=== PATIENT | female | born 1960 | race Caucasian/White ===

== ENCOUNTER 2018-12-08 11:23 | Inpatient (IN) | payer MEDICARE, SELFPAY ==
[2018-12-07 12:35] VITALS: BMI 39.1
[2018-12-08] VITALS (16 sets, daily range): BP systolic 123–190; BP diastolic 46–74; PULSE 64–84; RESP 12–18; TEMP 36.4–37; O2SAT 94–99; BMI 39.1
[2018-12-08] MEDS: LACTATED RINGERS 1,000 ML 42 ML IV ×2 (13:21→15:56)
--- NOTE | 2018-12-08 13:27 | PM.PREOP ---
Pre-operative Note Interval Note History & Physical reviewed/Exam performed by Physician: Yes Changes to H&P: No
[2018-12-08] MEDS: MIDAZOLAM 2 MG/2 ML VIAL IV (13:41)
[2018-12-08] MEDS: INSULIN REGULAR 100 UNIT/ML 3 ML VIAL 10 UNIT SUBCUT (13:45)
[2018-12-08] MEDS: CLINDAMYCIN 900 MG/50 ML PIGGYBACK 50 MG IV ×2 (14:44→22:26)
[2018-12-08] MEDS: SODIUM CHLORIDE IRRIG SOLUTION 3,000 ML, GENTAMICIN 240 MG IRR (14:50)
[2018-12-08] MEDS: BUPIVACAINE 0.25% W/ EPI VIAL 30 ML INJ (15:00)
--- NOTE | 2018-12-08 15:04 | SUR.OPER ---
Prone on spine table, head in foam head support, padded chest and pelvic supports, gel pad at knees, lower legs supported by pillows; nipples, genitalia and toes free of pressure, arms secured on foam padded arm boards at <90 degrees abduction. Tape over blanket at thigh secured to table.
--- NOTE | 2018-12-08 15:34 | P.OP_ITS ---
Operative Date/Time/Diagnoses Date of procedure: 12/08/18 Time of procedure: 14:24 Pre-op diagnosis: 1. Lumbar abscess 2. Lumbar cellulitis Post-op diagnosis: same Procedure & Clinicians Procedure: 1. Lumbar irrigation and debridement of skin, muscle and fascia 2. Wound culture and primary closure with drain placement Same procedure as scheduled: Yes Indications: Ms. Yu has been having increased back pain, swelling and redness over the last week. She has hx of diabetes and multiple episodes of systemic infection in the last 3 weeks. Her wound was aspirated in clinic and purulent material was found in her lumbar subcutaneous layer. Surgeon: Jodi Lombardo Side Seam Envelope Machine Operator: Melissa Stewart Click Yes if Unassisted: Yes Anesthesia Type: General Operative Notes Closure Type: primary Specimen(s): other Applied: catheter Estimated Blood Loss (mL): 50 Blood products transfused: none Procedure in detail: Patient was seen in the preoperative area. Risks and benefits of the surgery was discussed with the patient. Informed consent was obtained from the patient and placed in the chart. Surgical site was marked. Patient was taken to the operative room. General anesthesia was administered. Prophylactic antibiotic was held until wound culture was taken. Patient was placed into a prone position on the Juan J table. Patient's back was then prepped and draped in the sterile fashion. Time-out was performed at this time. Left sided incision was made over patient's lumbar where her induration and cellulitis is located. Copius amount of purulent material was drained from her lumbar subcutaneous area, total about 80 cc. Her wound was debrided with a galeano and Le[place]ell rongeur by removing unhealthy appearing subcutaous tissue and muscle and fascia. Her deep fascia was found to be intact and no deep infection was identified. After debridement was completed, her wound was irrigated with 3 L of sterile normal saline with gentamicin. After the irrigation was completed hemostasis was performed using the Bovie. And the adjacent soft tissue next to the i ncision was compressed to explore for additional abscess no and no additional abscess was identified. A Hemovac drain was placed in the subcutaneous layer. And the skin and subcutaneous tissue was closed using 2. Nylon in vertical mattress fashion. Sterile dressing was applied. Patient tolerated the procedure well there were no complications. Since there was significant subcutaneous infection the plan is to treat patient's infection with IV antibiotics, following patient's wound culture, and bringing the patient back in 2 days for repeat irrigation and debridement and wound closure. Complications: none Condition: stable Disposition: Acute Care Plan for aftercare: Admit to inpatient hospital for IV antibiotics and plan for repeat I&D on Thursday.
[2018-12-08] MEDS: METOCLOPRAMIDE 10 MG/2 ML INJ IV (15:40)
[2018-12-08] MEDS: fentaNYL 100 MCG/2 ML INJ 50 MCG IV ×2 (15:40→15:56)
--- NOTE | 2018-12-08 16:40 | SUR.PHASEI ---
Pt transferred to room 212 via bed with all belongings. Last vital signs stable. Pain and nausea controlled. Report given to LARON Ewing on acute care prior to transfer. Kaylin at bedside upon pt arrival to 212.
[2018-12-08] MEDS: SODIUM CHLORIDE 0.9% 1,000 ML 100 ML IV (17:10)
[2018-12-08] MEDS: OXYCODONE IR 5 MG TABLET 10 MG PO ×2 (18:47→22:23)
--- NOTE | 2018-12-08 19:44 | PC.NURSE ---
Addendum entered by Aline Jordan R.N. 12/08/18 21:48: Reconciled home insulin regimen doses, made Dr. Huynh aware regarding patients Insulin doses. New order obtain to use mod sliding scale for now. Hold Metformin until one day post surgery 12/10. Patient refused insulin coverage this HS. States will resume in the morning when she is eating more. Original Note: Kina shift note: 1700: Patient admitted to room 212 from PACU s/p I&D lower back. Patient arrived drowsy but easily arousable. No n/V, tolerating PO intake. Cont. on RA, 95%. Luca at bedside providing supportive care. Oriented to room, environment, and plan of care. Call light within reach
[2018-12-08] MEDS: DOCUSATE 100 MG CAPSULE PO (20:41)
[2018-12-08] MEDS: GABAPENTIN 600 MG TABLET PO (20:41)
[2018-12-08] MEDS: ATORVASTATIN 20 MG TABLET PO (20:41)
[2018-12-08] MEDS: LISINOPRIL 20 MG TABLET PO (20:42)
[2018-12-08] MEDS: SENNOSIDES 8.6 MG TABLET 17.2 MG PO (20:43)
[2018-12-08] MEDS: SERTRALINE 50 MG TABLET 150 MG PO (20:43)
[2018-12-08] MEDS: ALBUTEROL/IPRATROPIUM 3 ML AMPUL INH (20:51)
[2018-12-09] MEDS: OXYCODONE IR 5 MG TABLET 10 MG PO ×4 (01:32→22:16)
[2018-12-09] MEDS: HYDROMORPHONE 1 MG INJ 0.5 MG IV (03:53)
[2018-12-09] MEDS: INSULIN ASPART 100 UNIT/ML INSULN PEN 14 UNIT SUBCUT (03:58)
[2018-12-09] MEDS: ONDANSETRON 4 MG/2 ML INJ IV ×3 (04:01→16:26)
[2018-12-09] MEDS: SODIUM CHLORIDE 0.9% 1,000 ML 100 ML IV (04:04)
--- NOTE | 2018-12-09 04:32 | PC.NURSE ---
ASSUMED CARE OF PT AT 2300. PT AWAKE RESTING IN BED. UP TO CHAIR. MEDICATED WITH OXYCODONE PER DEC. BG AT [address] CARUSO NOTIFIED. REC VTO FOR 40 UNITS NOVOLAG WHICH WOULD BE 1/2 OF PT'S HOME DOSAGE ROUTINE. CALLED BACK TO CHANGE ORDER TO 14 UNITS WITH RECHECK OF CBG IN 30 MIN AND GIVE ADDITIONAL 10 UNITS FOR BG GREATER THAN 300. 14 UNITS GIVEN AT 0400, BG 385 AT 0430. PT WILL REC 10 ADDITIONAL UNITS WITH A RECHECK IN 30 MIN.
[2018-12-09 04:38] VITALS: BP 111/48; PULSE 65; RESP 17; TEMP 36.6; O2SAT 96
[2018-12-09] MEDS: INSULIN ASPART 100 UNIT/ML INSULN PEN SUBCUT ×4 (04:54→17:10)
[2018-12-09 06:18] LABS: Hematocrit 32.2 % (36-46); Hemoglobin 10.7 g/dL (12.0-16.0)
[2018-12-09] MEDS: CLINDAMYCIN 900 MG/50 ML PIGGYBACK 50 MG IV ×3 (06:33→23:40)
[2018-12-09 08:15] VITALS: BP 116/54; PULSE 69; RESP 19; TEMP 36.8; O2SAT 94
[2018-12-09] MEDS: DOCUSATE 100 MG CAPSULE PO ×2 (08:59→20:14)
--- NOTE | 2018-12-09 09:01 | PC.NURSE ---
I went into the patients room to answer the call light, patient asked me if she could get back into bed. I moved the side table away from her and went to grab the walker and gait belt. Patient then stated she will not be using the gait belt. I told her that she is a high fall risk and post operation day 1, the gait belt is for safety reasons. She again said that she will not be using the gait belt. I asked her to wait in the chair while I go talk with the nurse. After talking to Jessa-LARON I could tell the patient was a little upset so I asked Elvia-LARON coordinator to go into the room with me. When we got into the room the patient was on the phone with someone from the hospital asking to talk to whoever was in charge. Elvia said that we should let her talk on the phone and come back when she was done. -DOYLE Fitzgerald
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
--- NOTE | 2018-12-09 10:44 | PC.NURSE ---
Patient was sleepy and sitting in her chair this morning, dozing off as she asked for more pain meds reporting pain to her back as 8/10. FLACC scale was zero. She appeared in no apparent distress. After bedside shift report pt was told that pain meds would be coming soon. Before pain meds were retrieved, pt used call light and asked for assistance going into the bathroom. As patient had been determined to be a high falls risk from a reported fall within the last 3 months, Amilcar the FUR REPAIRER was about to assist her to the bathroom with use of gait belt when the patient reportedly became very agitated. She reportedly refused the gait belt. Amilcar asked this nurse about the refusal of the gait belt, this nurse said We should use it with intention to logically convince her for her safety. Pt reportedly became more agitated and called trustee of estate Dr. Lord to voice her complaints further. Pt was assured by this nurse after the patient's telephone conversation that she can choose to refuse the gait belt. Pt was educated to the falls risks but continued to refuse.
--- NOTE | 2018-12-09 11:00 | PT.IIE ---
Current Diagnoses Other complications of procedures, not elsewhere classified, initial encounter (12/08/18) Surgery Performed Operation Date: 12/08/18 14:15 Actual Procedures p Incision and Drainage of left lumbar abscess - Jodi Lombardo MD Operation Date: 12/10/18 14:45 <No data on this case meets the specified criteria> Surgical History (Last Updated 12/07/18 @ 12:45 by Pamela Henry RN) History of 2 sections (Acute) History of arthroscopy of left shoulder (Acute) History of kidney surgery (Acute) Hx of dilation and curettage (Acute) Hx of laminectomy (Acute ~03/2016) Hx of tonsillectomy (Acute) S/P lumbar fusion (Acute ~05/2015) S/P lumbar fusion (Acute ~12/2016) Medical History (Last Updated 12/07/18 @ 12:45 by Pamela Henry RN) Anxiety (Acute) Asthma (Acute) CVA (cerebral vascular accident) (Acute) Chronic pain (Acute) Depression (Acute) Diabetes (Acute) Diverticulosis (Acute) Eczema (Acute) Edema (Acute) Fibromyalgia (Acute) Former smoker (Acute) Frequent UTI (Acute) [place] (hard of hearing) (Acute) HTN (hypertension) (Acute) Heart murmur (Acute) Hyperlipidemia (Acute) Hypothyroid (Acute) Palpitations (Acute) SOB (shortness of breath) (Acute) Sinus drainage (Acute) Sleep apnea (Acute) Physical Therapy Inpatient Evaluation/Re-Eval M1 PT/OT-IP Prior Functional Status Start: 12/09/18 11:59 Freq: NEEDED Status: Active Protocol: Document 12/09/18 11:00 AB (Rec: 12/09/18 12:09 AB [id number]) Medical Review Prior Functional Status Medical History Reviewed Yes Communication able to make needs known Mobility and Gait pt stated that she is mod I with all mobilities and ambulation using SPC Activities of Daily Living and IADL's stated that she occasionally needs assistance putting her socks/shoes on Social History Household Members spouse family Living Arrangements House Number of Floors (Floors) One Floor Number of Stairs To Enter/Railing? 12 steps to enter with bilateral rails Home Environment Walk in Shower Tub/Shower Home Equipment Front Wheel Walker Straight Cane Grab Bars Near Toilet Grab Bars In Shower Additional Social History Comment pt has her step dad/ mom and mother in law at home to assist her. M2 PT-IP Current Condition Start: 12/09/18 11:59 Freq: NEEDED Status: Active Protocol: Document 12/09/18 11:00 AB (Rec: 12/09/18 12:09 AB [id number]) Physical Therapy Current Condition Current Condition Evaluation Date 12/09/18 Treatment Diagnosis lumbar abscess/cellulitis s/p I&D; difficulty in walking Onset Date 12/08/18 Precautions Lumbar Precautions Log Roll No Twisting Limit Bending Lifting Restriction of 10 lbs Gait Belt above Incisional Area M3 PT-IP Subjective Start: 12/09/18 11:59 Freq: NEEDED Status: Active Protocol: Document 12/09/18 11:00 AB (Rec: 12/09/18 12:09 AB [id number]) Subjective Physical Therapy Visit Type Type Initial Evaluation Visit Start Time 11:00 Visit Stop Time 11:55 Total Visit Minutes 55 Number of MACHINE JOINT CUTTER Visits 0 Physical Therapy Visit Comments Patient Comments pt agreeable to do PT Therapy Pain Assessment Pain When Pain Assessed At Rest Location Lower Back Scale Used stated that pain is too much & does not want to talk about it Pain Management Techniques Apply Cold Timing of Activity with Medications M4 PT-IP Mobility and Gait Start: 12/09/18 11:59 Freq: NEEDED Status: Active Protocol: Document 12/09/18 11:00 AB (Rec: 12/09/18 12:09 AB [id number]) PT-Bed Mobility Assessment Supine to Sit Supine to Sit Standby Assistance PT-Transfer Assessment Sit to and From Stand Sit to and from Stand Standby Assistance Equipment Transfer Assistive Device Bed Rail Front Wheeled Walker Orthotic/Prosthetic Devices or Brace: No Transfers Transfer Destination Chair Transfer Technique pt ambulated to the chair using FWW Transfer Ability Level of Assist Standby Assistance Comments Mobility Comments pt refused to use safety belt. pt educated regarding safety and pt stated that she understood but still no belt . Gait Assessment Gait Gait Assistance Required: Standby Assistance Distance (Feet) 225 Able to Maintain Weight Bearing Status Yes During Gait Assistive Devices Assistive Device Gait Belt Front Wheeled Walker Orthotic/Prosthetic Devices or Brace: No Gait Deviations General Gait Pattern Decreased Stride Length Decreased Feet Clearance Factors Limiting Gait Function Factors Limiting Gait Function Decreased Activity Tolerance Decreased Strength Pain Poor Balance Poor Safety Awareness PT-Balance Assessment Sitting Balance and Reactions Static Sitting Balance Ability Good Dynamic Sitting Balance Ability Good Standing Balance and Reactions Static Standing Balance Ability Fair Dynamic Standing Balance Ability Fair Device Used FWW M5 PT-IP Objective Assessments Start: 12/09/18 11:59 Freq: NEEDED Status: Active Protocol: Document 12/09/18 11:00 AB (Rec: 12/09/18 12:09 AB [id number]) Orientation Orientation/Cognition Level of Alertness Alert Orientation Name Age Birthday Month Date Year Day of Week Place Situation Gross Range of Motion Lower Extremity ROM Assessment Within Functional Limits Strength Lower Extremity Strength Assessment Within Functional Limits Coordination Assessment Gross Coordination Gross Coordination WNL Sensation Assessment Sensation Gross Sensation WNL Muscle Tone Muscle Tone WNL Yes M6 PT-IP Treatment Start: 12/09/18 11:59 Freq: NEEDED Status: Active Protocol: Document 12/09/18 11:00 AB (Rec: 12/09/18 12:09 AB [id number]) Physical Therapy Treatment Education Education Provided Precautions Weight Bearing Status Safety M7 PT-IP Assessment and Plan Start: 12/09/18 11:59 Freq: NEEDED Status: Active Protocol: Document 12/09/18 11:00 AB (Rec: 12/09/18 12:09 AB [id number]) PT Summary Assessment and Plan Potential Rehabilitation Potential Good Status of Condition at Evaluation Stable Summary Impairments Pain ROM Strength Balance Coordination Cognition Bed Mobility Transfers Gait Activity Tolerance Assessment Summary pt requiring SBA with mobility . pt will have her family at home to assist her. stair climbing will be conducted prior to d/c and if able to complete safely, pt may go home when medically stable. Goals Bed Mobility Goal Independent Transfer Goal Independent Cane Front Wheeled Walker Gait Goal Independent Cane Front Wheel Walker Gait Distance 300 Other Goals up/down 12 steps with bilateral rails SBA Days to Meet Goals 5 Frequency of Treatment Frequency Of Treatment Once a Day Treatment Plan Physical Therapy Treatment Plan Bed Mobility Training Transfer Training Gait Training Therapeutic Exercise Balance Retraining Post Op Education Discharge Planning Hot or Cold Pack Neuromuscular Re-ed Coordination Retraining Manual Therapy Other Recommendations and Next Treatment ambulation using SPC, stair Focus climbing Recommendations To Nursing Amount of Assist Needed Standby Assistance Discharge Recommendations PT Discharge Recommendations Home with Assistance
[2018-12-09 12:10] VITALS: BP 135/55; PULSE 71; RESP 18; TEMP 36.8; O2SAT 93
--- NOTE | 2018-12-09 12:20 | PC.NURSE ---
Capone removal: Patient states she does not want her capone to be removed until later today. Pt was educated on increased risk for infection and still declined removal.
--- NOTE | 2018-12-09 14:32 | OT.IP.TRT ---
Current Diagnoses Other complications of procedures, not elsewhere classified, initial encounter (12/08/18) Surgery Performed Operation Date: 12/08/18 14:15 Actual Procedures p Incision and Drainage of left lumbar abscess - Jodi Lombardo MD Operation Date: 12/10/18 14:45 <No data on this case meets the specified criteria> Occupational Therapy Treatment Note M3 OT- IP Subjective and Pain Start: 12/09/18 14:31 Freq: Status: Active Protocol: Document 12/09/18 14:31 ADELA (Rec: 12/09/18 14:32 ADELA [id number]) OT- Subjective Occupational Therapy Visit Type Type Administrative Note Notes OT referral received. Will initiate eval in AM.
[2018-12-09 16:46] VITALS: BP 127/60; PULSE 64; RESP 17; TEMP 37.2; O2SAT 96
--- NOTE | 2018-12-09 17:49 | P.CONS_ITS ---
History of Present Illness Date Patient Seen: 12/09/18 Chief complaint: [id number] I&D SPINE; EXPLORATION SPINAL FUSION Narrative: Kindly asked by Darío Alfonso for a internal medicine consultation for miss Hailey hernandez is a 58-year-old female admitted to the hospital for a lumbar abscess status post I&D. The patient has a history of type 2 diabetes and requires high-dose insulin. She typically takes 100 units of Lantus twice daily with 40-60 units of Humalog with meals. She is also taking metformin for her blood sugars. She reports she is not getting the usual insulin she would give herself at home and has had resulting increasing glucose here in the hospital. The patient is status post I&D. She does report pain in the surgical area. She is nauseated. Otherwise complete has no further complaints she denies any chest pain or shortness of breath. She has mild headache. She has lower extremity edema. She has not vomited. She has had no diarrhea. I am asked to assist with diabetic management. [facility] Medical History Anxiety (Acute) Asthma (Acute) CVA (cerebral vascular accident) (Acute) Chronic pain (Acute) Depression (Acute) Diabetes (Acute) Diverticulosis (Acute) Eczema (Acute) Edema (Acute) Fibromyalgia (Acute) Former smoker (Acute) Frequent UTI (Acute) [place] (hard of hearing) (Acute) HTN (hypertension) (Acute) Heart murmur (Acute) Hyperlipidemia (Acute) Hypothyroid (Acute) Palpitations (Acute) SOB (shortness of breath) (Acute) Sinus drainage (Acute) Sleep apnea (Acute) Surgical History History of 2 sections (Acute) History of arthroscopy of left shoulder (Acute) History of kidney surgery (Acute) Hx of dilation and curettage (Acute) Hx of laminectomy (Acute ~03/2016) Hx of tonsillectomy (Acute) S/P lumbar fusion (Acute ~05/2015) S/P lumbar fusion (Acute ~12/2016) Social History household members: spouse and family Smoking Status: Former smoker alcohol intake: current Social History household members: spouse and family Smoking Status: Former smoker alcohol intake: current Meds Home Medications Medication Instructions Recorded Confirmed Type Lantus U-100 Insulin 100 u SQ BID #0 08/06/12 12/08/18 History lisinopril 20 mg PO QDAY #0 10/09/16 12/08/18 History metformin [Glucophage] 1 tab PO BID #0 12/17/16 12/08/18 History aspirin 81 mg PO DAILY 12/07/18 12/08/18 History atorvastatin 20 mg PO DAILY PRN 12/07/18 12/08/18 History cetirizine 10 mg PO DAILY 12/07/18 12/07/18 History gabapentin [Neurontin] 600 mg PO TID 12/07/18 12/08/18 History hydroxyzine HCl 25 mg PO TID 12/07/18 12/07/18 History insulin lispro [Humalog U-100 40 - 80 unit SUBCUT TID 12/07/18 12/08/18 History Insulin] oxycodone 5 mg PO Q4-6H PRN 12/07/18 12/08/18 History sertraline [Zoloft] 150 mg PO QDAY 12/07/18 12/08/18 History Excedrin Extra Strength 0.5 tab PO TID 12/08/18 12/08/18 History albuterol sulfate 1 neb INHALATION Q4H PRN 12/08/18 12/08/18 History ipratropium bromide 1 neb INHALATION Q4H PRN 12/08/18 12/08/18 History triamterene-hydrochlorothiazid 0.5 tab PO QDAY 12/08/18 12/08/18 History Allergies Allergy/AdvReac Type Severity Reaction Status Date / Time Sulfa (Sulfonamide Allergy Severe SWELLING, Verified 12/08/18 13:09 Antibiotics) NAUSEA cephalexin AdvReac Severe VOMITING Verified 12/08/18 13:09 codeine AdvReac Severe NAUSEA/VOMI Verified 12/08/18 13:09 TING lactase AdvReac Gastrointestinal Verified 12/08/18 13:09 Upset Review of Systems Review of Systems All systems reviewed & are unremarkable except as noted in HPI and below Exam Vital Signs (past 8 hours): - 12/09/18 12:10 12/09/18 16:46 Temperature 98.3 F 98.9 F Pulse Rate 71 64 Respiratory Rate 18 17 Blood Pressure 135/55 L 127/60 Pulse Oximetry 93 96 Oxygen Delivery Method Room Air Oxygen Flow Rate 0 Narrative Exam Narrative: Pleasant obese female who appears uncomfortable and is nauseated HEENT: Normocephalic atraumatic, oropharynx is clear, neck is supple Lungs: Clear to auscultation Cardiac exam: Regular rate and rhythm normal S1-S2 with a 2/6 systolic ejection murmur Abdomen: To obese mildly distended, nontender, no appreciable hepatosplenomegaly Back: Lumbar surgical dressing in place without exudate. Drain in place. Extremities: 2+ pitting edema bilateral Neuro exam: She is awake alert and oriented, she answers questions appropriately, she is able to move her upper extremities 5/5. She reports pain and is unable to move the lower extremities more than 1+ out of 5 bilateral her sensation is grossly intact Psych exam: She is awake alert and oriented, she has no hallucinations, Objective Labs Result Diagrams: 12/09/18 05:48 Labs: Laboratory Results - last 24 hr 12/09/18 05:48 Hgb 10.7 L Hct 32.2 L Assessment & Plan Assessment & Plan narrative: 58-year-old female with multiple medical problems who is status post I&D of a lumbar abscess who I am asked to assist with diabetic management. Patient the patient has a long history of diabetes and is on a significant dose of insulin. I have discussed management of her diabetes her in the hospital. Will start with half her usual dose and adjust accordingly. 2. Obesity number 3. Hyperlipidemia 4. Hypertension 5. Depression Plan at this time will resume insulin at 50 units of Lantus at night in addition to 20 units of Humalog with meals. Would increase her Lantus to 50 twice daily starting tomorrow and resume her usual home insulin at discharge. Agree with continuing her usual home medications. Will hold her metformin here in the hospital. Thank you very much for this consultation will continue to follow with you.
--- NOTE | 2018-12-09 19:50 | PC.NURSE ---
Addendum entered by Karla Devlin R.N. 12/09/18 22:33: Pt continues w/many requests. Refusing insulin at HS CBG = 341 HV patent 10cc Pt states that she is going out for a smoke. Policy explained to her. HL intact, Call light w/in reach. Refuses bed alarm Continue w/plan of care. Original Note: Pt sitting in chair. New IV site established at 1400. Lungs clear, SpO2 96% RA Back dsg CDI, Hemavac intact/patent. Pt appears irritated that routine lantus not yet ordered. in and ordered. RN went to give Lantus and novolog and pt stated I already took my insulin, my brought it in when asked how much pt stated 100u lantus and 20u novolog. Pt ask to not take her own meds while at hospital so she is not double dosed. Pt agreed at this time. Call light w/in reach.
[2018-12-09] MEDS: ATORVASTATIN 20 MG TABLET PO (20:14)
[2018-12-09] MEDS: GABAPENTIN 600 MG TABLET PO (20:14)
[2018-12-09] MEDS: SERTRALINE 50 MG TABLET 150 MG PO (20:14)
[2018-12-09] MEDS: SENNOSIDES 8.6 MG TABLET 17.2 MG PO (20:14)
[2018-12-09 20:15] VITALS: BP 138/50; PULSE 69
[2018-12-09] MEDS: LISINOPRIL 20 MG TABLET PO (20:15)
[2018-12-09 20:17] VITALS: BP 138/50; PULSE 69; RESP 18; TEMP 36.8; O2SAT 97
[2018-12-10] VITALS (17 sets, daily range): BP systolic 101–193; BP diastolic 29–79; PULSE 58–87; RESP 11–24; TEMP 36.3–36.9; O2SAT 90–99; BMI 39.1
[2018-12-10] MEDS: OXYCODONE IR 5 MG TABLET 10 MG PO ×4 (03:56→19:58)
[2018-12-10] MEDS: CLINDAMYCIN 900 MG/50 ML PIGGYBACK 50 MG IV ×3 (06:27→22:34)
--- NOTE | 2018-12-10 07:32 | PC.NURSE ---
Hemovac patent, 40 ml drainage, sanguinous
[2018-12-10] MEDS: DOCUSATE 100 MG CAPSULE PO (08:28)
[2018-12-10] MEDS: INSULIN ASPART 100 UNIT/ML INSULN PEN 20 UNIT SUBCUT ×2 (08:28→12:23)
[2018-12-10] MEDS: diazePAM 2 MG TABLET PO ×2 (08:59→12:15)
--- NOTE | 2018-12-10 10:31 | OT.IP.TRT ---
Current Diagnoses Other complications of procedures, not elsewhere classified, initial encounter (12/08/18) Surgery Performed Operation Date: 12/08/18 14:15 Actual Procedures p Incision and Drainage of left lumbar abscess - Jodi Lombardo MD Operation Date: 12/10/18 14:45 <No data on this case meets the specified criteria> Occupational Therapy Treatment Note M3 OT- IP Subjective and Pain Start: 12/09/18 14:31 Freq: Status: Active Protocol: Document 12/10/18 10:30 [facility] (Rec: 12/10/18 10:31 [facility] [id number]) OT- Subjective Occupational Therapy Visit Type Type Patient Refusal Notes Pt to have 2nd back wash out for sx today and states does not want OT eval as has plenty of assist at home and has had back surgery before and aware of what to do. Therefore discharge OT eval orders.
[2018-12-10] MEDS: ALBUTEROL/IPRATROPIUM 3 ML AMPUL INH (10:48)
--- NOTE | 2018-12-10 10:51 | PT.IPTN ---
Current Diagnoses Other complications of procedures, not elsewhere classified, initial encounter (12/08/18) Surgery Performed Operation Date: 12/08/18 14:15 Actual Procedures p Incision and Drainage of left lumbar abscess - Jodi Lombardo MD Operation Date: 12/10/18 14:45 <No data on this case meets the specified criteria> Physical Therapy Treatment Note M2 PT-IP Current Condition Start: 12/09/18 11:59 Freq: NEEDED Status: Active Protocol: Document 12/09/18 11:00 AB (Rec: 12/09/18 12:09 AB [id number]) Physical Therapy Current Condition Current Condition Evaluation Date 12/09/18 Treatment Diagnosis lumbar abscess/cellulitis s/p I&D; difficulty in walking Onset Date 12/08/18 Precautions Lumbar Precautions Log Roll No Twisting Limit Bending Lifting Restriction of 10 lbs Gait Belt above Incisional Area M3 PT-IP Subjective Start: 12/09/18 11:59 Freq: NEEDED Status: Active Protocol: Document 12/10/18 10:50 SA (Rec: 12/10/18 10:51 SA [id number]) Subjective Physical Therapy Visit Type Type Patient Refusal Notes Pt declined PT this AM stating she has already been up today and that she is having a procedure later and then going home. M4 PT-IP Mobility and Gait Start: 12/09/18 11:59 Freq: NEEDED Status: Active Protocol: Document 12/09/18 11:00 AB (Rec: 12/09/18 12:09 AB [id number]) PT-Bed Mobility Assessment Supine to Sit Supine to Sit Standby Assistance PT-Transfer Assessment Sit to and From Stand Sit to and from Stand Standby Assistance Equipment Transfer Assistive Device Bed Rail Front Wheeled Walker Orthotic/Prosthetic Devices or Brace: No Transfers Transfer Destination Chair Transfer Technique pt ambulated to the chair using FWW Transfer Ability Level of Assist Standby Assistance Comments Mobility Comments pt refused to use safety belt. pt educated regarding safety and pt stated that she understood but still no belt . Gait Assessment Gait Gait Assistance Required: Standby Assistance Distance (Feet) 225 Able to Maintain Weight Bearing Status Yes During Gait Assistive Devices Assistive Device Gait Belt Front Wheeled Walker Orthotic/Prosthetic Devices or Brace: No Gait Deviations General Gait Pattern Decreased Stride Length Decreased Feet Clearance Factors Limiting Gait Function Factors Limiting Gait Function Decreased Activity Tolerance Decreased Strength Pain Poor Balance Poor Safety Awareness PT-Balance Assessment Sitting Balance and Reactions Static Sitting Balance Ability Good Dynamic Sitting Balance Ability Good Standing Balance and Reactions Static Standing Balance Ability Fair Dynamic Standing Balance Ability Fair Device Used FWW M5 PT-IP Objective Assessments Start: 12/09/18 11:59 Freq: NEEDED Status: Active Protocol: Document 12/09/18 11:00 AB (Rec: 12/09/18 12:09 AB [id number]) Orientation Orientation/Cognition Level of Alertness Alert Orientation Name Age Birthday Month Date Year Day of Week Place Situation Gross Range of Motion Lower Extremity ROM Assessment Within Functional Limits Strength Lower Extremity Strength Assessment Within Functional Limits Coordination Assessment Gross Coordination Gross Coordination WNL Sensation Assessment Sensation Gross Sensation WNL Muscle Tone Muscle Tone WNL Yes M6 PT-IP Treatment Start: 12/09/18 11:59 Freq: NEEDED Status: Active Protocol: Document 12/09/18 11:00 AB (Rec: 12/09/18 12:09 AB [id number]) Physical Therapy Treatment Education Education Provided Precautions Weight Bearing Status Safety M7 PT-IP Assessment and Plan Start: 12/09/18 11:59 Freq: NEEDED Status: Active Protocol: Document 12/09/18 11:00 AB (Rec: 12/09/18 12:09 AB [id number]) PT Summary Assessment and Plan Potential Rehabilitation Potential Good Status of Condition at Evaluation Stable Summary Impairments Pain ROM Strength Balance Coordination Cognition Bed Mobility Transfers Gait Activity Tolerance Assessment Summary pt requiring SBA with mobility . pt will have her family at home to assist her. stair climbing will be conducted prior to d/c and if able to complete safely, pt may go home when medically stable. Goals Bed Mobility Goal Independent Transfer Goal Independent Cane Front Wheeled Walker Gait Goal Independent Cane Front Wheel Walker Gait Distance 300 Other Goals up/down 12 steps with bilateral rails SBA Days to Meet Goals 5 Frequency of Treatment Frequency Of Treatment Once a Day Treatment Plan Physical Therapy Treatment Plan Bed Mobility Training Transfer Training Gait Training Therapeutic Exercise Balance Retraining Post Op Education Discharge Planning Hot or Cold Pack Neuromuscular Re-ed Coordination Retraining Manual Therapy Other Recommendations and Next Treatment ambulation using SPC, stair Focus climbing Recommendations To Nursing Amount of Assist Needed Standby Assistance Discharge Recommendations PT Discharge Recommendations Home with Assistance
--- NOTE | 2018-12-10 11:02 | PM.PNPO.1 ---
Subjective Date Patient Seen: 12/10/18 Time Patient Seen: 11:02 Interval history: Hospital day 3, postop day 2 following lumbar wound I and D for infection. Patient has remained stable. She is scheduled to have repeat lumbar wound I and D later today by Dr. Lombardo. Patient is NPO at this time. She was seen by Dr. Kaplan, hospitalist, yesterday to evaluate her diabetes. Did have insulin adjusted. She is on clindamycin IV. Has been getting oxycodone 10 mg for pain. Wound aerobe a culture preliminary is no growth. Anaerobic culture pending. Exam Vital Signs (past 8 hours): - 12/10/18 04:00 12/10/18 07:45 12/10/18 10:49 Temperature 97.8 F 97.7 F Pulse Rate 65 58 L 63 Respiratory Rate 18 18 12 Blood Pressure 129/57 L 128/79 Pulse Oximetry 97 97 98 Oxygen Delivery Method Room Air Oxygen Flow Rate 0 Narrative Exam Narrative: Patient is sitting up in chair but appears lethargic with some slurred speech but responding appropriately. Legs. No calf pain or swelling. Pulses symmetrical. Objective Labs Result Diagrams: 12/09/18 05:48 Assessment & Plan Post-op Postoperative Procedures Operation Date: 12/08/18 14:15 Actual Procedures Side Surgeon p Incision and Drainage of left lumbar abscess Jodi Lombardo MD Patient scheduled for repeat lumbar wound I and D today with Dr. Lombardo. Continue being followed by hospitalist for medical issue. Awaiting final on culture results. Patient will most likely be discharged home when she is cleared after surgery and by hospitalist and pending culture results. Operation Date: 12/10/18 14:45 <No data on this case meets the specified criteria>
[2018-12-10] MEDS: ONDANSETRON 4 MG/2 ML INJ IV ×2 (12:12→16:07)
--- NOTE | 2018-12-10 13:20 | PM.PN.1 ---
Subjective Date Patient Seen: 12/10/18 Interval history: She is seen today to follow up the diabetes mellitus and the related lumbar spine abscesses. Her original incision and drainage was done a couple of days ago and a repeat procedure is being done today. Exam Vital Signs (past 8 hours): - 12/10/18 07:45 12/10/18 10:49 12/10/18 12:03 Temperature 97.7 F 98.1 F Pulse Rate 58 L 63 67 Respiratory Rate 18 12 20 Blood Pressure 128/79 130/48 L Pulse Oximetry 97 98 97 Oxygen Delivery Method Room Air Oxygen Flow Rate 0 Narrative Exam Narrative: She is alert but confused and sedated. No apparent distress. Heart is regular rate and rhythm without murmur. Lungs are clear to auscultation bilaterally. Extremities have no ankle edema. She has a large dressing over the lumbar spine, pending surgery again today. Objective Labs Result Diagrams: 12/09/18 05:48 Assessment & Plan Assessment & Plan narrative: 58-year-old female with multiple medical problems who is status post I&D of a lumbar abscess 1. Diabetes Mellitus. Currently on half her usual dose of insulin, with correctional scale based on the fact that she is having surgery on some days and not on other days. Lispro, Lantus. Resume home doses once oral intake stabilizes. Holding Metformin. 2. Obesity 3. Hyperlipidemia 4. Hypertension - continue lisinopril and Maxzide 5. Depression - continue sertraline Continue insulin at 50 units of Lantus at night in addition to 20 units of Humalog with meals. Would increase her Lantus to 50 twice daily starting with regular diet resumption and resume her usual home insulin at discharge. Agree with continuing her usual home medications. Will hold her metformin here in the hospital. Thank you very much for this consultation will continue to follow with you.
--- NOTE | 2018-12-10 14:48 | PC.NURSE ---
Day shift: Pt off unit at this time for I&D. HAs been NPO except for ice, meds and water.
--- NOTE | 2018-12-10 14:54 | PC.NURSE ---
Day shift: Report given to FILM EDITOR SUPERVISOR.
[2018-12-10] MEDS: LACTATED RINGERS 1,000 ML 42 ML IV (15:30)
--- NOTE | 2018-12-10 15:47 | PM.PREOP ---
Pre-operative Note Interval Note History & Physical reviewed/Exam performed by Physician: Yes Changes to H&P: No
[2018-12-10] MEDS: INSULIN ASPART 100 UNIT/ML 10ML VIAL 30 UNIT SUBCUT (16:14)
[2018-12-10] MEDS: BUPIVACAINE 0.25% W/ EPI VIAL 30 ML INJ (17:02)
[2018-12-10] MEDS: SODIUM CHLORIDE IRRIG SOLUTION 3,000 ML, GENTAMICIN 240 MG IRR (17:02)
--- NOTE | 2018-12-10 17:14 | P.OP_ITS ---
Operative Date/Time/Diagnoses Date of procedure: 12/10/18 Time of procedure: 16:14 Pre-op diagnosis: 1. Lumbar abscess Post-op diagnosis: same Procedure & Clinicians Procedure: Lumbar irrigation debridement of skin, muscle and fascia Same procedure as scheduled: Yes Indications: Ms. Yu is 2 days status post hematogenous sourced lumbar a bscess I&D. She had extensive subcutanous abcess and pus collection. She was scheduled at the end of the last I&D to return today for repeat I&D and wound closure. Surgeon: Jodi Lombardo Detective Automobile Section: Melissa Stewart Click Yes if Unassisted: No Anesthesia Type: General Operative Notes Closure Type: primary Specimen(s): none sent Estimated Blood Loss (mL): 25 Blood products transfused: none Procedure in detail: Patient was seen in the preoperative area. Risks and benefits of the surgery was discussed with the patient. Informed consent was obtained from the patient and placed in the chart. Surgical site was marked. Patient was taken to the operative room. General anesthesia was administered. Prophylactic antibiotic was given to the patient less than 30 min before the incision was made. Patient was placed into a prone position on the Juan J table. Patient's back was then prepped and draped in the sterile fashion. Time- out was performed at this time. Previously placed sutures were removed using scissors after patient was prepped. The Hemovac drain was removed prior to patient was prepped. The wound was explored there is no longer any pus collection inside the wound there is a caudally located small hematoma subcutaneously which is consistent with postop hematoma. The tissue was healthy appearing with a small amount of granulation tissue on bilateral sides of the incision. A Su was used to debride the skin and the subcutaneous tissue muscle and the fascia by removing and healthy tissue out of the wound to minimize possible future infection. After the debridement was completed patient's wound was irrigated copiously with 3 L of sterile normal saline with gentamicin. The wound was then closed using #2 Nylon in vertical mattress fashion as well as lilian. A sterile dressing was applied the patient's incision. Patient was woken up from anesthesia without any issues. Patient was transferred to recovery room in stable condition. Patient will be discharged to home on oral antibiotics and instructed to follow up in 2 weeks for wound check and suture removal at that time. Complications: none Condition: stable Disposition: PACU Plan for aftercare: DIscharge to home
[2018-12-10] MEDS: METOCLOPRAMIDE 10 MG/2 ML INJ IV (17:45)
--- NOTE | 2018-12-10 18:04 | SUR.PHASEI ---
stable pacu stay, vss, no pain, nausea resolved with reglan. o2 weaned off.report called and report called to [facility].
[2018-12-10] MEDS: SODIUM CHLORIDE 0.9% 1,000 ML 100 ML IV (19:42)
[2018-12-10] MEDS: SERTRALINE 50 MG TABLET 150 MG PO (19:44)
[2018-12-10] MEDS: INSULIN GLARGINE 100 UNIT/ML 3ML PEN SUBCUT (20:28)
[2018-12-10] MEDS: INSULIN ASPART 100 UNIT/ML INSULN PEN SUBCUT (20:33)
[2018-12-10] MEDS: hydrOXYzine pamoate 25 MG CAPSULE PO (20:42)
[2018-12-10] MEDS: METFORMIN HCL 500 MG TABLET PO (20:42)
[2018-12-10] MEDS: ACETAMINOPHEN 325 MG TABLET 650 MG PO (22:39)
[2018-12-11] MEDS: BENZOCAINE/MENTHOL 1 LOZ PKT 1 EACH PO (00:02)
[2018-12-11] MEDS: OXYCODONE IR 5 MG TABLET 10 MG PO ×4 (00:09→11:58)
[2018-12-11] MEDS: hydrOXYzine pamoate 25 MG CAPSULE PO ×2 (03:40→08:23)
--- NOTE | 2018-12-11 04:43 | PC.NURSE ---
NOC Shift: Pt POD #1 for IND of lumbar incision for infection by Dr. Lombardo. Pt was supposed to go home post op. Unsure as to why pt re-admitted to ACU. Pt is AAOx3, VSS taking po well w/o difficulty will D/C IVF's when IV bag is complete per AM order. Lower midline lumbar dressing CDI. No neurological deficits noted, pt able to get OOB to bedside commode w/standby assist. Taking po pain medication for 7/10 pain re: to incisional pain. Pt has active order for telemetry monitoring however, patient refused to wear monitor stating it makes her chlaustrophobic, and gives her skin blisters. Dr. Tomas notified on eves shift, no order received to D/C telemetry. Throughout shift RN discussed w/ pt. telemetry yet pt continues to refuse the monitoring despite the risks and will discuss w/Dr. Lombardo in the AM. Pt also refuses to take prescribed Insulin doses when to be given, and will dictate what she will take states she doesn't like taking lantus. Pt. possibly will discharge to home tomorrow.
[2018-12-11 04:53] VITALS: BP 124/48; PULSE 68; RESP 18; TEMP 36.2; O2SAT 97
[2018-12-11 06:08] LABS: Hematocrit 33.2 % (36-46); Hemoglobin 10.7 g/dL (12.0-16.0)
[2018-12-11 07:08] VITALS: BP 135/50; PULSE 68; RESP 18; TEMP 36.7; O2SAT 97
[2018-12-11] MEDS: CLINDAMYCIN 900 MG/50 ML PIGGYBACK 50 MG IV (07:50)
[2018-12-11] MEDS: SODIUM CHLORIDE 0.9% 1,000 ML 100 ML IV (08:05)
[2018-12-11] MEDS: ONDANSETRON 4 MG/2 ML INJ IV (08:06)
[2018-12-11] MEDS: INSULIN ASPART 100 UNIT/ML INSULN PEN SUBCUT ×2 (08:16→11:51)
[2018-12-11] MEDS: INSULIN GLARGINE 100 UNIT/ML 3ML PEN SUBCUT (08:17)
--- NOTE | 2018-12-11 08:20 | PM.DS.1 ---
History of Present Illness Date Patient Seen: 12/11/18 Time Patient Seen: 08:20 Chief complaint: [id number] I&D SPINE; EXPLORATION SPINAL FUSION Narrative: The history and physical exam are contained in the chart in a previously completed note. Please refer to that note for this information. Discharge Providers Date of admission: 12/08/18 11:23 Consults: 12/07/18 13:14 Consult to Respiratory Therapy Evaluate & Treat Comment: SHAGUFTA-does not tolerate CPAP mask Physician Instructions: Evaluate and treat 12/08/18 12:56 Consult to Respiratory Therapy Evaluate & Treat Comment: Physician Instructions: Evaluate and treat 12/08/18 13:04 Consult to Respiratory Therapy Evaluate & Treat Comment: Physician Instructions: Evaluate and treat 12/08/18 16:53 Consult to Occupational Therapy Evaluate & Treat Comment: Physician Instructions: Evaluate and treat Consult to Physical Therapy Evaluate & Treat Comment: Physician Instructions: Evaluate and Treat 12/09/18 10:00 Consult to Physician Routine Comment: Consulting Provider: Hailey Kaplan Reason for consultation: Evaluate diabetic control and medical issues. Status post lumbar wound I D Has provider been notified: Yes 12/10/18 18:44 Consult to Occupational Therapy Evaluate & Treat Comment: Physician Instructions: Evaluate and treat Consult to Physical Therapy Evaluate & Treat Comment: Physician Instructions: Evaluate and Treat Discharge provider: Jnony Tomas MD Discharge Date: 12/11/18 Summary Discharge Diagnosis: 1. Postoperative lumbar abscess. Hospital Course: The patient was admitted to the hospital and underwent a staged 2 part incision and drainage followed by repeat debridement and closure 2 days later. She tolerated the procedures well. She is to be discharged home on oral antibiotics. Status at Discharge Cognitive/behavioral status at discharge: Baseline Functional status at discharge: independent ambulation Overall status at discharge: patient is progressing back to baseline Time Spent with Patient Less than 30 minutes Exam Vital Signs (past 8 hours): - 12/11/18 04:53 12/11/18 07:08 Temperature 97.2 F L 98.0 F Pulse Rate 68 68 Respiratory Rate 18 18 Blood Pressure 124/48 L 135/50 L Pulse Oximetry 97 97 Oxygen Delivery Method Room Air Oxygen Flow Rate 0 Narrative Exam Narrative: Spinal wound is dressed, clean dry and intact. Light touch and motion are intact in both lower extremities. Objective Labs Result Diagrams: 12/11/18 05:35 Labs: Laboratory Results - last 24 hr 12/11/18 05:35 Hgb 10.7 L Hct 33.2 L Discharge Plan Discharge Plan Patient Disposition: Home Discharge Med Rec/Prescriptions Prescriptions: New clindamycin HCl 300 mg capsule 300 mg PO QID Qty: 28 RF: 0 oxycodone 5 mg tablet 5 mg PO Q4-6H PRN (Reason: pain) Qty: 60 RF: 0 Continued Lantus U-100 Insulin 100 UNIT/1 ML solution 100 u SQ BID Qty: 0 RF: 0 lisinopril 20 MG tablet 20 mg PO QDAY Qty: 0 RF: 0 metformin [Glucophage] 500 MG tablet 1 tab PO BID Qty: 0 RF: 0 atorvastatin 20 mg Tablet 20 mg PO DAILY PRN (Reason: Allergic Symptoms) RF: 0 aspirin 81 mg Tablet,Delayed Release (Dr/Ec) 81 mg PO DAILY RF: 0 oxycodone 5 mg Capsule 5 mg PO Q4-6H PRN (Reason: Pain) RF: 0 hydroxyzine HCl 25 mg Tablet 25 mg PO TID RF: 0 Humalog U-100 Insulin 100 unit/mL Cartridge 40 - 80 unit SUBCUT TID RF: 0 cetirizine 10 mg Capsule 10 mg PO DAILY RF: 0 sertraline [Zoloft] 100 MG tablet 150 mg PO QDAY RF: 0 gabapentin [Neurontin] 300 MG capsule 600 mg PO TID RF: 0 Excedrin Extra Strength 0.5 tab PO TID RF: 0 albuterol sulfate 1 neb Inhalation Q4H PRN (Reason: Dyspnea) RF: 0 ipratropium bromide 1 neb Inhalation Q4H PRN (Reason: Dyspnea) RF: 0 triamterene-hydrochlorothiazid 37.5 MG/25 MG tablet 0.5 tab PO QDAY RF: 0 Follow up/Referrals: Jodi Lombardo MD [Physician] - 1 Week Provider Discharge Instructions Diet: Diet as Tolerated and Regular Activity: You may walk as tolerated. Lift no more than 10 lb. Cold/Heat Therapy: You may apply ice to your back for 15 min of every hour as needed for pain relief. Skin/Wound/Dressing Care Report to your healthcare provider any signs of infection, such as:: chills, fever, night sweats, increased pain, unusual drainage and unusual redness Dressing: Keep the dressing clean dry and intact. Visit Report/Discharge Packet Instructions: DI for Incision and Drainage Stand Alone Forms: Surgery Discharge Discharge Data Attending Provider: Jodi Lombardo Admit Date/Time: 12/08/18 11:23
[2018-12-11] MEDS: METFORMIN HCL 500 MG TABLET PO (08:22)
[2018-12-11] MEDS: DOCUSATE 100 MG CAPSULE PO (08:23)
[2018-12-11] MEDS: ACETAMINOPHEN 325 MG TABLET 650 MG PO (08:24)
[2018-12-11] MEDS: ASPIRIN EC 81 MG TABLET PO (08:26)
[2018-12-11 08:40] VITALS: BP 131/50; PULSE 71; RESP 18; TEMP 36.7; O2SAT 97
--- NOTE | 2018-12-11 09:18 | OT.IP.TRT ---
Current Diagnoses Other complications of procedures, not elsewhere classified, initial encounter (12/08/18) Surgery Performed Operation Date: 12/08/18 14:15 Actual Procedures p Incision and Drainage of left lumbar abscess - Jodi Lombardo MD Operation Date: 12/10/18 14:45 Actual Procedures p Incision and Drainage Wound/Spine - Jodi Lombardo MD Occupational Therapy Treatment Note M3 OT- IP Subjective and Pain Start: 12/09/18 14:31 Freq: Status: Active Protocol: Document 12/11/18 09:16 [facility] (Rec: 12/11/18 09:18 [facility] [id number]) OT- Subjective Occupational Therapy Visit Type Type Patient Refusal Notes Touched base with pt regarding OT needs, pt states step- father and to assist at home. Able to suggest to pt toilet aid to be able to assist for hygiene after bowel movements. Pt being discharged today.
--- NOTE | 2018-12-11 10:23 | PC.NURSE ---
Addendum entered by Leslie Loredo R.N. 12/11/18 12:37: DC - given ss coverage and oxycodone 10mg prior to discharge, when spouse arrived, reviewed dc instructions and scripts provided, belongings gathered, including cell phone, leak gang supervisor, clothing, slippers, bag, stuffed animal, tsf to wc and escorted to spouse's car by maintenance planner. Original Note: Addendum entered by Leslie Loredo R.N. 12/11/18 10:34: MS - per discussion with Ariana PT, pt managed stair practice and is cleared for dc home. Original Note: AM NOTE - awake, drowsy, asking assist to BR, with OLDER WORKER SPECIALIST, pt stood, appears unsteady and had pt use bsc, voided, to chair, states pain 8-10 on scale 0/10, back very tender, ice pack and pillow support provided, cbg 306 and insulin SS, lantus and metformin given, initially states nausea present, is eating breakfast, given 4mg iv zofran, dsg cdi, later up with phys therapy, no dizziness, ambul hallway with PT using fww, slow, steady pace, ivf saline locked, 10mg po oxycodone for pain.
--- NOTE | 2018-12-11 10:24 | CM.DANOTE ---
DCP: Case received, EMR reviewed and met with patient. Introduced self and role. DCP template completed with information currently available. Patient is a 58 year old female who admitted on 12/08 in the morning to the care of the surgical team. Payer: confirmed: Medicare. Patient came to hospital for procedure. Had Lumbar fusion, secondary to abcess. Patient lives in [facility] with her spouse, Jono. She is planning on discharging home today. Will be working with physical therapy before she is discharged. P: Patient is discharging home today. Olga Gomez RN/Wire Weaver Helper
--- NOTE | 2018-12-11 10:26 | P.PN_ITS ---
Subjective Date Patient Seen: 12/11/18 Time Patient Seen: 10:46 Interval history: She is seen today to follow up her diabetes mellitus and lumbar spine abscess. She will be going home, see the discharge summary from Orthopedics. She lives in a house in [place] and follows up with the [facility] primary care side. Blood sugars have ranged 177 up to 326. Exam Vital Signs (past 8 hours): - 12/11/18 04:53 12/11/18 07:08 12/11/18 08:40 Temperature 97.2 F L 98.0 F 98.1 F Pulse Rate 68 68 71 Respiratory Rate 18 18 18 Blood Pressure 124/48 L 135/50 L 131/50 L Pulse Oximetry 97 97 97 Oxygen Delivery Method Room Air Oxygen Flow Rate 0 Narrative Exam Narrative: She is quite soft spoken. She is certainly more alert than yesterday. Heart is regular rate and rhythm without murmur. Lungs are clear to auscultation bilaterally. Extremities have no ankle edema. The dressing on her back is intact and clean. Objective Labs Result Diagrams: 12/11/18 05:35 Labs: Laboratory Results - last 24 hr 12/11/18 05:35 Hgb 10.7 L Hct 33.2 L Assessment & Plan Assessment & Plan narrative: 1. Diabetes Mellitus. Resuming home insulin doses and metformin today. She has normal renal function. 2. Obesity. Stable. 3. Hyperlipidemia. Continue atorvastatin. 4. Hypertension. Continue lisinopril and Maxzide. 5. Depression - continue sertraline 6. Lumbar abscess - remarkably there has been no growth on culture. She will be treated with clindamycin per Ortho. New clindamycin HCl 300 mg capsule 300 mg PO QID Qty: 28 RF: 0 oxycodone 5 mg tablet 5 mg PO Q4-6H PRN (Reason: pain) Qty: 60 RF: 0 Continued Lantus U-100 Insulin 100 UNIT/1 ML solution 100 u SQ BID Qty: 0 RF: 0 lisinopril 20 MG tablet 20 mg PO QDAY Qty: 0 RF: 0 metformin [Glucophage] 500 MG tablet 1 tab PO BID Qty: 0 RF: 0 atorvastatin 20 mg Tablet 20 mg PO DAILY PRN (Reason: Allergic Symptoms) RF: 0 aspirin 81 mg Tablet,Delayed Release (Dr/Ec) 81 mg PO DAILY RF: 0 oxycodone 5 mg Capsule 5 mg PO Q4-6H PRN (Reason: Pain) RF: 0 hydroxyzine HCl 25 mg Tablet 25 mg PO TID RF: 0 Humalog U-100 Insulin 100 unit/mL Cartridge 40 - 80 unit SUBCUT TID RF: 0 cetirizine 10 mg Capsule 10 mg PO DAILY RF: 0 sertraline [Zoloft] 100 MG tablet 150 mg PO QDAY RF: 0 gabapentin [Neurontin] 300 MG capsule 600 mg PO TID RF: 0 Excedrin Extra Strength 0.5 tab PO TID RF: 0 albuterol sulfate 1 neb Inhalation Q4H PRN (Reason: Dyspnea) RF: 0 ipratropium bromide 1 neb Inhalation Q4H PRN (Reason: Dyspnea) RF: 0 triamterene-hydrochlorothiazid 37.5 MG/25 MG tablet 0.5 tab PO QDAY RF: 0 Follow up/Referrals: Jodi Lombardo MD [Physician] - 1 Week
--- NOTE | 2018-12-11 12:22 | PT.IPTN ---
Current Diagnoses Other complications of procedures, not elsewhere classified, initial encounter (12/08/18) Surgery Performed Operation Date: 12/08/18 14:15 Actual Procedures p Incision and Drainage of left lumbar abscess - Jodi Lombardo MD Operation Date: 12/10/18 14:45 Actual Procedures p Incision and Drainage Wound/Spine - Jodi Lombardo MD Physical Therapy Treatment Note M2 PT-IP Current Condition Start: 12/09/18 11:59 Freq: NEEDED Status: Active Protocol: Document 12/09/18 11:00 AB (Rec: 12/09/18 12:09 AB [id number]) Physical Therapy Current Condition Current Condition Evaluation Date 12/09/18 Treatment Diagnosis lumbar abscess/cellulitis s/p I&D; difficulty in walking Onset Date 12/08/18 Precautions Lumbar Precautions Log Roll No Twisting Limit Bending Lifting Restriction of 10 lbs Gait Belt above Incisional Area M3 PT-IP Subjective Start: 12/09/18 11:59 Freq: NEEDED Status: Active Protocol: Document 12/11/18 10:00 CLB (Rec: 12/11/18 12:22 CLB [id number]) Subjective Physical Therapy Visit Type Type Treatment Note Visit Start Time 00:00 Visit Stop Time 10:30 Total Visit Minutes 30 Number of FLOORWORKER LASTING Visits 1 Physical Therapy Visit Comments Patient Comments pt agreeable to do PT M4 PT-IP Mobility and Gait Start: 12/09/18 11:59 Freq: NEEDED Status: Active Protocol: Document 12/11/18 10:00 CLB (Rec: 12/11/18 12:22 CLB [id number]) PT-Transfer Assessment Sit to and From Stand Sit to and from Stand Standby Assistance Transfers Transfer Destination Chair Transfer Ability Level of Assist Standby Assistance Comments Mobility Comments Pt up ambulating in room upon arrival. Pt continues to refuse gait belt. Gait Assessment Gait Gait Assistance Required: Standby Assistance Distance (Feet) 250 Able to Maintain Weight Bearing Status Yes During Gait Assistive Devices Assistive Device Front Wheeled Walker Orthotic/Prosthetic Devices or Brace: No Gait Deviations General Gait Pattern Decreased Stride Length Decreased Feet Clearance Factors Limiting Gait Function Factors Limiting Gait Function Decreased Activity Tolerance Decreased Strength Pain Comments Gait Comments Pt able to ambulate in garcia SBA with good balance and safety awareness. Stair Climbing Assessment Evaluation Level of Assist On Stairs Standby Assistance Devices Stair Climbing Assistive Devices Left Railing Right Railing Technique/Endurance Stair Climbing Direction Ascend and Descend Stair Climbing Technique Step Over Step Step to Step Number of Steps Climbed 3 Query Text: Stair Climbing Set # Repetitions (reps) 4 Comments Stair Climbing Comments Pt able to safely climb 12 steps SBA. M5 PT-IP Objective Assessments Start: 12/09/18 11:59 Freq: NEEDED Status: Active Protocol: Document 12/09/18 11:00 AB (Rec: 12/09/18 12:09 AB [id number]) Orientation Orientation/Cognition Level of Alertness Alert Orientation Name Age Birthday Month Date Year Day of Week Place Situation Gross Range of Motion Lower Extremity ROM Assessment Within Functional Limits Strength Lower Extremity Strength Assessment Within Functional Limits Coordination Assessment Gross Coordination Gross Coordination WNL Sensation Assessment Sensation Gross Sensation WNL Muscle Tone Muscle Tone WNL Yes M6 PT-IP Treatment Start: 12/09/18 11:59 Freq: NEEDED Status: Active Protocol: Document 12/09/18 11:00 AB (Rec: 12/09/18 12:09 AB [id number]) Physical Therapy Treatment Education Education Provided Precautions Weight Bearing Status Safety M7 PT-IP Assessment and Plan Start: 12/09/18 11:59 Freq: NEEDED Status: Active Protocol: Document 12/11/18 10:00 CLB (Rec: 12/11/18 12:22 CLB [id number]) PT Summary Assessment and Plan Summary Assessment Summary Pt is SBA for all mobility including stairs. Pt has family to assist her at home and seems able to d/c home when medically stable. Goals Bed Mobility Goal Independent Transfer Goal Independent Cane Front Wheeled Walker Gait Goal Independent Cane Front Wheel Walker Gait Distance 300 Other Goals up/down 12 steps with bilateral rails SBA Days to Meet Goals 5 Frequency of Treatment Frequency Of Treatment Once a Day Treatment Plan Physical Therapy Treatment Plan Bed Mobility Training Transfer Training Gait Training Therapeutic Exercise Balance Retraining Post Op Education Discharge Planning Hot or Cold Pack Neuromuscular Re-ed Coordination Retraining Manual Therapy Recommendations To Nursing Amount of Assist Needed Standby Assistance Discharge Recommendations PT Discharge Recommendations Home with Assistance
== END 2018-12-11 12:30 | disposition home or self-care (01) | DRG 857 ==
PROVIDERS: Admitting Provider Orthopaedic Surgery Orthopaedic Surgery of the Spine; Visit Provider Orthopaedic Surgery Orthopaedic Surgery of the Spine
PROC: 0KBG0ZZ Excision of Left Trunk Muscle, Open Approach (ICD-10-PCS; 2018-12-08 14:15)
PROC: 0JB70ZZ Excision of Back Subcutaneous Tissue and Fascia, Open Approach (ICD-10-PCS; CPT 10180; principal; 2018-12-10 14:45)
DX: T81.49XA Infection following a procedure, other surgical site, initial encounter (principal); M96.840 Postprocedural hematoma of a musculoskeletal structure following a musculoskeletal system procedure; E11.9 Type 2 diabetes mellitus without complications; Z79.4 Long term (current) use of insulin; E03.9 Hypothyroidism, unspecified; I10 Essential (primary) hypertension; G47.33 Obstructive sleep apnea (adult) (pediatric); M79.7 Fibromyalgia; E78.5 Hyperlipidemia, unspecified; R11.0 Nausea; E66.9 Obesity, unspecified; Z68.39 Body mass index [BMI] 39.0-39.9, adult; F32.9 Major depressive disorder, single episode, unspecified
CPT/HCPCS: 36415; 82962; 85014; 85018; 87070; 87075; 87205; 93005; 94640; 94760; 97116; 97161; 97530; J0330; J1170; J2250; J2405; J2704; J2765; J3010

== ENCOUNTER 2019-07-22 11:15 | Inpatient (IN) | payer MEDICARE, SELFPAY ==
[2018-12-08 17:00] VITALS: BMI 39.1
[2019-07-22 12:25] VITALS: BMI 40.4
[2019-07-22 12:44] VITALS: BP 113/43; PULSE 78; RESP 16; TEMP 36.5; O2SAT 96
[2019-07-22] MEDS: ONDANSETRON 4 MG ODT SL (13:17)
--- NOTE | 2019-07-22 15:10 | PC.ADMIT ---
Addendum entered by Chanda Martinez R.N. 07/22/19 15:30: LIANNE CALLED BACK. PATIENT MAY HAVE A FEW ICE CHIPS. DR. DURON WILL COME SEE PATIENT IN 1HR AFTER HE FINISHES AT CLINIC ON [address]. PATIENT NOTIFIED OF SAME. BEDSIDE SHIFT REPORT GIVEN TO LARON LAWRENCE. Original Note: [email or web address] [place] Admission Note: The patient,Hailey Yu,58 y/o, was given written information regarding hospital policies, unit procedures and contact persons. Patient's smoking status: Current every day smoker. Vital Signs - 8 hr 07/22/19 12:44 Temperature 97.7 F Pulse Rate 78 Respiratory Rate 16 Blood Pressure 113/43 L Pulse Oximetry 96 PATIENT SBA W/ CANE. ADMISSION COMPLETED. PATIENT WANTS HER PAIN MEDICATIONS. HER BG IS 351 AT 1244. SHE HAS BEEN NPO SINCE 1100 WHEN SHE ATE 3 PIECES OF FISH. IV WAS STARTED. HAVE JUST GOTTEN OFF OF PHONE W/ DR. DURON'S WASH OIL PUMP OPERATOR LIANNE SHE WAS NOTIFIED OF PATIENT BECOMING AGITATED IN NOT KNOWING POC, NOT HAVING BEEN SEEN BY DR SWANSON. SHE WOULD LIKE TO DRINK/EAT IF SHE IS NOT HAVING SURGICAL PROCEDURE. LIANNE WILL DISCUSS W/ DR. DURON AND CALL THIS PIE MAKER MACHINE BACK.
--- NOTE | 2019-07-22 16:53 | P.HP_ITS ---
History of Present Illness History of Present Illness Date Patient Seen: 07/22/19 Time Patient Seen: 16:15 Chief complaint: Low back pain status post surgery Narrative: Patient with a history of multiple surgeries to the lumbar spine. Patient also had a previous history of a infection post surgically that required irrigation and debridement as well as IV antibiotics and long-term oral antibiotics. Patient has saw Dr. Lombardo her surgeon last week with some concerns of pain and discomfort to the back. There was concerns the patient might have a recurrence infection. Patient had a aspiration by Dr. Lombardo at that time and there was no sign of any purulence. Patient returned to clinic yesterday because she was having continued pain and discomfort. Patient's saw Elvis Vargas where she was sent for a CT scan and blood work. CT scan showed signs of possible hardwa re loosening. There was a possible fluid collection but compared to previous images that fluid collection had been there previously and there was no change on the most recent CT scan. Patient then returned the clinic today and saw Elvis Vargas. Douglas Vargas repeated the aspiration that Dr. Lombardo did and was able to get some possible purulence. This was sent to microbiology today. No results are present at this point. Due to concerns of possible infection, patient was admitted to the hospital. Patient History Medical History Anxiety (Acute) Asthma (Acute) Chronic pain (Acute) CVA (cerebral vascular accident) (Acute) Depression (Acute) Diabetes (Acute) Diverticulosis (Acute) Eczema (Acute) Edema (Acute) Fibromyalgia (Acute) Former smoker (Acute) Frequent UTI (Acute) Heart murmur (Acute) [place] (hard of hearing) (Acute) HTN (hypertension) (Acute) Hyperlipidemia (Acute) Hypothyroid (Acute) Palpitations (Acute) Sinus drainage (Acute) Sleep apnea (Acute) SOB (shortness of breath) (Acute) Surgical History History of 2 sections (Acute) History of arthroscopy of left shoulder (Acute) History of kidney surgery (Acute) Hx of dilation and curettage (Acute) Hx of laminectomy (Acute ~03/2016) Hx of tonsillectomy (Acute) S/P lumbar fusion (Acute ~05/2015) S/P lumbar fusion (Acute ~12/2016) Social History household members: spouse and family Smoking Status: Current every day smoker alcohol intake: never Family & Social History Social History: household members spouse,family Prior Living Arrangements Mobile home Safety & Behavioral: Feels Safe in Current Yes Environment Been Physically Hurt or No Threatened By a Person Suicidal Ideation Description None Suicide Plan Description No Plan Tobacco & Substance use: Tobacco type cigarettes Smoking Status Current every day smoker alcohol intake never Substance Use Type does not use Meds Home Medications and Allergies Home Medications Medication Instructions Recorded Confirmed Type Lantus U-100 Insulin 100 u SQ BID #0 08/06/12 07/22/19 History lisinopril 20 mg PO QDAY #0 10/09/16 07/22/19 History metformin [Glucophage] 1 tab PO BID #0 12/17/16 07/22/19 History Humalog U-100 Insulin 40 - 80 unit SUBCUT TID 12/07/18 07/22/19 History aspirin 81 mg PO BEDTIME 12/07/18 07/22/19 History atorvastatin 20 mg PO DAILY PRN 12/07/18 07/22/19 History cetirizine 10 mg PO DAILY 12/07/18 07/22/19 History gabapentin [Neurontin] 600 mg PO TID 12/07/18 07/22/19 History hydroxyzine HCl 25 mg PO TID PRN 12/07/18 07/22/19 History sertraline [Zoloft] 150 mg PO QDAY 12/07/18 07/22/19 History Excedrin Extra Strength 0.5 tab PO QID PRN 12/08/18 07/22/19 History albuterol sulfate 1 neb INHALATION Q4H PRN 12/08/18 07/22/19 History ipratropium bromide 1 neb INHALATION Q4H PRN 12/08/18 07/22/19 History triamterene-hydrochlorothiazid 0.5 tab PO QDAY 12/08/18 07/22/19 History hydrocodone-acetaminophen 1 tab PO Q4HR PRN 07/22/19 07/22/19 History Allergies Allergy/AdvReac Type Severity Reaction Status Date / Time Sulfa (Sulfonamide Allergy Severe SWELLING, Verified 12/08/18 13:09 Antibiotics) NAUSEA cephalexin AdvReac Severe VOMITING Verified 12/08/18 13:09 codeine AdvReac Severe NAUSEA/VOMI Verified 12/08/18 13:09 TING lactase AdvReac Gastrointestinal Verified 12/08/18 13:09 Upset Review of Systems Review of Systems ROS Unobtainable: All systems reviewed & are unremarkable except as noted in HPI and below Exam Vital Signs (past 8 hours): - 07/22/19 12:44 Temperature 97.7 F Pulse Rate 78 Respiratory Rate 16 Blood Pressure 113/43 L Pulse Oximetry 96 Oxygen Flow Rate 0 Narrative Exam Narrative: On physical exam today, patient was seen in her hospital room. Patient is able to ambulate without any difficulties. Patient has been complaining of some pain to her lower back for little over a week now. On exam, some redness along the lateral lower back incision. No sign of any drainage. It is tender to palpation. No sign of any obvious fluid collection. Patient has normal neurovascular function distally. Able to dorsiflex and plantar flex the toes and ankle. 5/5 extensor hallucis longus. Normal range of motion of the hips and knees as well. Assessment & Plan Assessment & Plan narrative: Patient with a history of multiple surgeries to the lumbar spine. Patient also had a previous history of a infection post surgically that required irrigation and debridement as well as IV antibiotics and long-term oral antibiotics. Patient has saw Dr. Lombardo her surgeon last week with some concerns of pain and discomfort to the back. Patient had a aspiration by Dr. Lombardo at that time and there was no sign of any purulence. Patient returned to clinic yesterday where she was sent for a CT scan and blood work. CT scan showed signs of possible hardware loosening. There was a possible fluid collection but compared to previous images that fluid collection had been there previously and there was no change on the most recent CT scan. Patient then returned the clinic today and saw Elvis Vargas. Douglas Vargas repeated the aspiration that Dr. Lombardo did and was able to get some possible purulence. This was sent to microbiology today. No results are present at this point. Due to concerns of possible infection, patient was admitted to the hospital. I went over treatment options with the patient today. I recommended a repeat I and D of that surgical site. At this time patient is not interested in any additional surgery. At this time patient is refusing any surgical treatment and She would like to see if this can be treated with IV antibiotics. I went over the potential risks and limitations associated with that. Particularly that the infection can continue to worsen. Patient is fully aware of these limitations. She Would still like to see how well she responds to IV antibiotics over the next 24-48 hours. Patient understands that if after this time frame there is not an obvious resolution of her symptoms then the next step would be surgery to do an irrigation and debridement of her postsurgical incision site. Time Spent With Patient Time with patient: 25 - 35 minutes Quality VTE Deep Vein Thrombosis/Pulmonary Embolism Present on Admission: No
[2019-07-22] MEDS: OXYCODONE IR 10 MG TABLET PO ×2 (17:16→21:59)
[2019-07-22] MEDS: hydrOXYzine pamoate 25 MG CAPSULE PO ×2 (17:17→21:58)
[2019-07-22 19:25] VITALS: BP 126/51; PULSE 89; RESP 20; TEMP 37.1; O2SAT 95
[2019-07-22 19:59] LABS: Estimated Glomerular Filt Rate > 60.0 mL/min (>60)
--- NOTE | 2019-07-22 20:56 | PC.NURSE ---
PATIENT ASKED TO GO MEET MOTHER DOWNSTAIRS,SHE WAS BRING PATIENT SOMETHING,FOUND OUTSIDE SMOKING BY STAFF, BACK TO HER ROOM STATES SHE DID NOT KNOW SHE COULD NOT GO OUTSIDE. UPSET BECAUSE SHE HAS NOT GOT ANTIBIOTICS YET, WAITING ON LABS AND PHARM.OK TO GIVE VANCO.
--- NOTE | 2019-07-22 20:56 | PC.NURSE ---
Patient was caught outside smoking, was told before leaving room that she could not smoke while in the hospital. Then she asked if she could go out side and this insurance underwriter sales told her she could not go out side. At some point patient did make it down stairs. When she was noticed to not be in her room, security was called. Security then noticed someone with her description outside next to a car. I asked Jose J () to try and stop her from getting into the vehicle and this RN went down to speak with patient. Patient was next to a family members car smoking. I explained to the patient that if she is an in patient of this hospital she is not aloud to go outside and especial not to go smoke. Patient angrily went back up stairs to her room 203 and stated no one told her she couldn't smoke or go outside.
[2019-07-22] MEDS: GABAPENTIN 600 MG TABLET PO (21:58)
[2019-07-22] MEDS: METFORMIN HCL 500 MG TABLET PO (21:59)
[2019-07-22] MEDS: DOCUSATE 100 MG CAPSULE PO (21:59)
[2019-07-22] MEDS: INSULIN ASPART 100 UNIT/ML INSULN PEN 60 UNIT SUBCUT (22:00)
[2019-07-22] MEDS: INSULIN GLARGINE 100 UNIT/ML 10ML VIAL SUBCUT (22:08)
[2019-07-22] MEDS: VANCOMYCIN 1,000 MG/200 ML PIGGYBACK 200 MG IV (22:38)
[2019-07-22 23:40] VITALS: BP 133/51; PULSE 76; RESP 16; TEMP 37.7; O2SAT 96
[2019-07-23] VITALS (9 sets, daily range): BP systolic 116–144; BP diastolic 41–72; PULSE 72–86; RESP 16–20; TEMP 36.2–37.4; O2SAT 90–100
[2019-07-23] MEDS: VANCOMYCIN 1,000 MG/200 ML PIGGYBACK 200 MG IV ×3 (05:42→22:20)
--- NOTE | 2019-07-23 09:26 | PM.PN.1 ---
Subjective Subjective Date Patient Seen: 07/23/19 Time Patient Seen: 09:26 Interval history: The patient reports that her back is ?sore?. Exam Vital Signs (past 8 hours): - 07/23/19 06:30 07/23/19 08:42 Temperature 97.2 F L 99.1 F Pulse Rate 77 72 Respiratory Rate 16 19 Blood Pressure 138/72 143/66 H Pulse Oximetry 97 98 Oxygen Flow Rate 0 Narrative Exam Narrative: There is erythema around her incision. There is some induration in the midportion of the incision with a mild yellow color. Objective Labs Result Diagrams: 07/22/19 18:46 Labs: Laboratory Results - last 24 hr 07/22/19 18:46 Creatinine 0.70 Estimated GFR > 60.0 Assessment & Plan Assessment & Plan narrative: The patient is a long-term patient of Dr. Lombardo's who has had prior wound infection issues and prior incision and drainages. Her wound was aspirated yesterday for a small amount of purulent fluid. Her care was discussed with Dr. Posadas yesterday as Dr. Lombardo is out of town. The patient has refused operative treatment of her infection until Dr. Lombardo is available. At this point the patient is agreeable to intravenous antibiotics while the cultures are obtained from her aspirate and then oral suppression until Dr. Lombardo's return. I have explained her that if the wound worsens in the interim it is possible she may require surgery prior to that time. She is willing to allow Dr. Doty to do the surgery provided ZAHRA Stewart is available to assist. Time Spent With Patient Time with patient: less than 15 minutes Quality VTE Deep Vein Thrombosis/Pulmonary Embolism Present on Admission: No
[2019-07-23] MEDS: GABAPENTIN 600 MG TABLET PO ×3 (09:32→21:10)
[2019-07-23] MEDS: TRIAMTERENE/HCTZ 37.5/25 TABLET 0.5 CAP PO (09:32)
[2019-07-23] MEDS: LISINOPRIL 20 MG TABLET PO (09:35)
[2019-07-23] MEDS: DOCUSATE 100 MG CAPSULE PO ×2 (09:35→21:10)
[2019-07-23] MEDS: METFORMIN HCL 500 MG TABLET PO ×2 (09:36→21:10)
[2019-07-23] MEDS: SERTRALINE 50 MG TABLET 150 MG PO (09:36)
[2019-07-23] MEDS: INSULIN ASPART 100 UNIT/ML INSULN PEN 60 UNIT SUBCUT ×3 (09:43→16:59)
[2019-07-23] MEDS: INSULIN GLARGINE 100 UNIT/ML 10ML VIAL SUBCUT ×2 (09:43→21:12)
[2019-07-23 09:48] LABS: C-Reactive Protein Quant 6.8 mg/dL (<1.0)
[2019-07-23 09:53] LABS: Hematocrit 33.5 % (36-46); Hemoglobin 11.3 g/dL (12.0-16.0); Mean Corpuscular HGB Conc 33.7 % (30-36); Mean Corpuscular Hemoglobin 31.2 PG (26-34); Mean Corpuscular Volume 92.6 fL (80-100); Platelet Count 392 X10^3/uL (150-400); Red Blood Cell Count 3.61 X10^6/uL (4.0-5.2); Red Cell Distribution Width 13.4 % (11.6-14.8); White Blood Cell Count 14.8 X10^3/uL (4.5-11.0)
[2019-07-23 09:54] LABS: Erythrocyte Sedimentation Rate 93 MM/HR (0-20)
[2019-07-23] MEDS: OXYCODONE IR 10 MG TABLET PO ×3 (09:54→21:10)
--- NOTE | 2019-07-23 10:57 | PT.IIE ---
Surgical History (Last Reviewed 07/22/19 @ 16:54 by Bertrand Posadas MD) History of 2 sections (Acute) History of arthroscopy of left shoulder (Acute) History of kidney surgery (Acute) Hx of dilation and curettage (Acute) Hx of laminectomy (Acute ~03/2016) Hx of tonsillectomy (Acute) S/P lumbar fusion (Acute ~05/2015) S/P lumbar fusion (Acute ~12/2016) Medical History (Last Reviewed 07/22/19 @ 16:54 by Bertrand Posadas MD) Anxiety (Acute) Asthma (Acute) Chronic pain (Acute) CVA (cerebral vascular accident) (Acute) Depression (Acute) Diabetes (Acute) Diverticulosis (Acute) Eczema (Acute) Edema (Acute) Fibromyalgia (Acute) Former smoker (Acute) Frequent UTI (Acute) Heart murmur (Acute) [place] (hard of hearing) (Acute) HTN (hypertension) (Acute) Hyperlipidemia (Acute) Hypothyroid (Acute) Palpitations (Acute) Sinus drainage (Acute) Sleep apnea (Acute) SOB (shortness of breath) (Acute) Physical Therapy Inpatient Evaluation/Re-Eval M1 PT/OT-IP Prior Functional Status Start: 07/23/19 11:19 Freq: NEEDED Status: Active Protocol: Document 07/23/19 10:57 AB (Rec: 07/23/19 11:29 AB [id number]) Medical Review Prior Functional Status Medical History Reviewed Yes Diet/Fluid Consistency Regular Communication able to make needs known Mobility and Gait pt stated that she is modified independent with all mobilities and ambulation using SPC Social History Household Members spouse,family Living Arrangements Mobile home Number of Floors (Floors) One Floor Number of Stairs To Enter/Railing? 12 steps to enter with bilateral rails Home Environment High Toilet,Walk in Shower Home Equipment Front Wheel Walker,Straight Cane,Shower Seat with Backrest ,Hand Held Shower,Grab Bars Near Toilet M2 PT-IP Current Condition Start: 07/23/19 11:19 Freq: NEEDED Status: Active Protocol: Document 07/23/19 10:57 AB (Rec: 07/23/19 11:29 AB [id number]) Physical Therapy Current Condition Current Condition Evaluation Date 07/23/19 Treatment Diagnosis LBP; difficulty in walking Onset Date 07/22/19 Precautions Lumbar Precautions Log Roll,No Twisting,Limit Bending,Lifting Restriction of 10 lbs M3 PT-IP Subjective Start: 07/23/19 11:19 Freq: NEEDED Status: Active Protocol: Document 07/23/19 10:57 AB (Rec: 07/23/19 11:29 AB [id number]) Subjective Physical Therapy Visit Type Type Initial Evaluation Visit Start Time 10:57 Visit Stop Time 11:12 Total Visit Minutes 15 Number of LEVER OPERATOR Visits 0 Physical Therapy Visit Comments Patient Comments pt agreeable to do PT Therapy Pain Assessment Pain When Pain Assessed At Rest Pain Present Pain Present Pain Reported Location Lower Back Scale Used pain scale not stated M4 PT-IP Mobility and Gait Start: 07/23/19 11:19 Freq: NEEDED Status: Active Protocol: Document 07/23/19 10:57 AB (Rec: 07/23/19 11:29 AB [id number]) PT-Bed Mobility Assessment Supine to Sit Supine to Sit Independent Sit to Supine Sit to Supine Independent Scooting Scooting to Edge of Bed Independent PT-Transfer Assessment Sit to and From Stand Sit to and from Stand Independent Equipment Transfer Assistive Device Gait Belt,Straight Cane Orthotic/Prosthetic Devices or Brace: No Comments Mobility Comments pt found standing and fixing her bed/chair. ambulating in room without AD SBA. pt agreed to do PT. completed bed mobility supine<>sit mod I. pt ambulated using SPC ~ 150 ft SBA. (+) LOB but with recovery only requiring SBA. pt completed up/down stairs using bilateral rails SBA. Gait Assessment Gait Gait Assistance Required: Standby Assistance Distance (Feet) 150 Able to Maintain Weight Bearing Status Yes During Gait Assistive Devices Assistive Device Gait Belt,Straight Cane Orthotic/Prosthetic Devices or Brace: No Gait Deviations General Gait Pattern Wide Based Gait Factors Limiting Gait Function Factors Limiting Gait Function Pain,Poor Safety Awareness Stair Climbing Assessment Evaluation Level of Assist On Stairs Standby Assistance Devices Stair Climbing Assistive Devices Left Railing,Right Railing Technique/Endurance Stair Climbing Direction Ascend and Descend Stair Climbing Technique Step Over Step Number of Steps Climbed 3 Query Text: Stair Climbing Set # Repetitions (reps) 2 PT-Balance Assessment Sitting Balance and Reactions Static Sitting Balance Ability Normal Dynamic Sitting Balance Ability Normal Standing Balance and Reactions Static Standing Balance Ability Good Dynamic Standing Balance Ability Good Device Used SPC Comments Other Balance Tests/Deviations/Treatment T : Functional Assessments Functional Tests Tinetti Balance and Gait Assessment balance score: 1616 gait score 11/12 Other Functional Tests Performed tinetti balance assessment: total score : low fall risk M5 PT-IP Objective Assessments Start: 07/23/19 11:19 Freq: NEEDED Status: Active Protocol: Document 07/23/19 10:57 AB (Rec: 07/23/19 11:29 AB [id number]) Orientation Orientation/Cognition Level of Alertness Alert Orientation Name,Place,Situation Language Function Ability No Deficits Noted Safety Awareness Decreased Safety Awareness Memory Description No Deficits Noted Gross Range of Motion Lower Extremity ROM Assessment Within Functional Limits Strength Lower Extremity Strength Assessment Within Functional Limits Coordination Assessment Gross Coordination Gross Coordination WNL Sensation Assessment Sensation Gross Sensation WNL Muscle Tone Muscle Tone WNL Yes M6 PT-IP Treatment Start: 07/23/19 11:19 Freq: NEEDED Status: Active Protocol: Document 07/23/19 10:57 AB (Rec: 07/23/19 11:29 AB [id number]) Physical Therapy Treatment Education Education Provided Safety M7 PT-IP Assessment and Plan Start: 07/23/19 11:19 Freq: NEEDED Status: Active Protocol: Document 07/23/19 10:57 AB (Rec: 07/23/19 11:29 AB [id number]) PT Summary Assessment and Plan Potential Rehabilitation Potential Good Status of Condition at Evaluation Stable Summary Impairments Pain Assessment Summary PT eval completed. pt is at PLOF and no further PT intervention indicated. Pt can be modified independent in room and requires SBA for long distance ambulation for safety. pt agrees. informed nurse that pt is cleared to ambulate in room by herself. Frequency of Treatment Frequency Of Treatment Discharge Recommendations To Nursing Amount of Assist Needed Standby Assistance Discharge Recommendations PT Discharge Recommendations Home
--- NOTE | 2019-07-23 11:03 | PC.NURSE ---
Addendum entered by Chuck Shook R.N. 07/23/19 14:50: Pt appears tired this afternoon. States she's a bit fidgety as not had any xanax and isn't smoking but is just tired. will discuss Pt with oncoming RN. Pt is due for gabapentin soon . holding med till oncoming RN can assess Pt. Original Note: Pt wakes to voice, a&o explains needs well. up with SBA and cane. Surgical site dry. Left incision site opaque and reported to P.A. also discussed soft firm area noted on the left side. Pt up for adl's and b'fast, meds given as ordered. Pt presently up with PT Rachael doing stares.
--- NOTE | 2019-07-23 11:29 | CM.IDA ---
Initial DCP Assessment Note: Pt is a 58 yo female, resident of [facility]. Pt has longstanding h/o spinal surgeries, infections w/ h/o I+D. PCP: Unknown Payer: Medicare Reviewed chart. Pt is well known to Dr Lombardo who is out of town; Dr Posadas admitted, Dr Tomas 07.23.19 indicates pt wants IV abx to see if this eradicates infection, she does not want I+D at this time. Pt states she is agreeable to I+D by Dr Doty w/ ZAHRA Stewart assisting, if needed. Met w/pt, reviewed role and DCP. Pt lives w/her , who works multimedia specialist, and her mother in law, who has dementia and is cared for by pt. Pt explains her MIL is pretty content in her downstairs suite and pt checks on her throughout the day, dresses her, changes her briefs, does meals, and did showering until they very recently hired assist for this. Pt has two adult children that live down the street. Pt denies needs from this MEDICAL TECHNICIAN upon DC. Pt has had HH in the past and did not like. She does not know the name. Pt has been up [facility]BA in . Pt expects to be DC on oral abx. Pt has Medicare w/no supplement and it will likely be financially burdensome for her to pay out of pocket for home infusion. Hopefully she will DC on Oral abx as expected. P: DC home expected w/supportive family and close outpt f/u. Following. DRU Baires Discharge Planning/Care Management Advanced directive, confirm from FAMILY Start: 07/22/19 12:39 Freq: Q24H Status: Active Protocol: Document 07/22/19 13:25 [facility] (Rec: 07/22/19 13:31 [facility] [id number]) Advance Directive, confirm on record Time 13:30 Person contacted PATIENT Copy received No CM Discharge Assessment Start: 07/23/19 11:22 Freq: Status: Active Protocol: Document 07/23/19 11:23 (Rec: 07/23/19 11:29 ZAID [id number]) Discharge Planning Assessment Assigned Physician Assistant DRU Harris DPOA/Assigned Designee Name Jono Yu, spouse Contact Information [phone] Advance Directives? Yes History Provided By Patient,Medical Record Prior Living Arrangements Mobile home Household Members spouse,family Independent with ADL's Yes: back pain limits some mobility Is patient alert and oriented? Yes Needs Assistance With Home Chores / Shopping Caregiver for Another Yes: Cg for mother in law w/ Dementia Barriers to Discharge No Discharge Plan Home Transportation Arrangement Spouse Referrals Initiated None needed Whiteboard Updated in Patient Room with Yes name and ext. # of Physician Assistant Review Status In Process
[2019-07-23] MEDS: hydrOXYzine pamoate 25 MG CAPSULE PO (17:23)
[2019-07-23] MEDS: LORazepam 0.5 MG TABLET PO (17:25)
[2019-07-23] MEDS: ALBUTEROL 2.5 MG/3 ML NEB (ADULT) INH (21:42)
[2019-07-23 22:10] LABS: Vancomycin Trough 11.7 ug/mL (10-20)
[2019-07-23] MEDS: VANCOMYCIN TROUGH 1 REQUEST MISC (22:21)
--- NOTE | 2019-07-23 23:38 | PC.NURSE ---
Blanket Maker Note: 2335: Awake, resting in bed. Vital signs stable. IV in place in rt forearm and saline locked at this time. Nicotine patch in place on lt upper arm. Pt laying on rt side, assisted to reposition.
[2019-07-24] VITALS (7 sets, daily range): BP systolic 120–145; BP diastolic 45–77; PULSE 70–80; RESP 15–22; TEMP 36.3–37.6; O2SAT 92–98
[2019-07-24] MEDS: OXYCODONE IR 10 MG TABLET PO ×5 (00:11→21:33)
[2019-07-24] MEDS: hydrOXYzine pamoate 25 MG CAPSULE PO ×2 (00:13→10:00)
[2019-07-24] MEDS: LORazepam 0.5 MG TABLET PO ×3 (01:37→16:45)
[2019-07-24] MEDS: ONDANSETRON 4 MG ODT SL (01:39)
[2019-07-24] MEDS: VANCOMYCIN 1,000 MG/200 ML PIGGYBACK 200 MG IV ×3 (05:26→21:32)
[2019-07-24] MEDS: INSULIN GLARGINE 100 UNIT/ML 10ML VIAL SUBCUT ×2 (09:49→21:35)
[2019-07-24] MEDS: INSULIN ASPART 100 UNIT/ML INSULN PEN 60 UNIT SUBCUT ×3 (09:53→16:52)
[2019-07-24] MEDS: TRIAMTERENE/HCTZ 37.5/25 TABLET 0.5 CAP PO (09:55)
[2019-07-24] MEDS: SERTRALINE 50 MG TABLET 150 MG PO (10:00)
[2019-07-24] MEDS: GABAPENTIN 600 MG TABLET PO ×3 (10:00→21:32)
[2019-07-24] MEDS: LISINOPRIL 20 MG TABLET PO (10:01)
[2019-07-24] MEDS: METFORMIN HCL 500 MG TABLET PO ×2 (10:01→21:33)
[2019-07-24] MEDS: LORATADINE 10 MG TABLET PO (10:01)
[2019-07-24] MEDS: DOCUSATE 100 MG CAPSULE PO ×2 (10:02→21:32)
--- NOTE | 2019-07-24 10:05 | PM.PN.1 ---
Subjective Subjective Date Patient Seen: 07/24/19 Time Patient Seen: 10:05 Interval history: The patient reports continued discomfort around her surgical wound. Exam Vital Signs (past 8 hours): - 07/24/19 05:33 07/24/19 09:50 Temperature 97.9 F 97.5 F L Pulse Rate 70 80 Respiratory Rate 16 22 Blood Pressure 138/53 L 141/77 H Pulse Oximetry 97 Oxygen Delivery Method Room Air Oxygen Flow Rate 0 Narrative Exam Narrative: The previous surgical wound remains somewhat indurated and minimally erythematous. There is serous drainage from the puncture site from her aspiration. Objective Labs Result Diagrams: 07/23/19 09:25 07/22/19 18:46 Labs: Laboratory Results - last 24 hr 07/23/19 21:00 Vancomycin Trough 11.7 Preliminary microbiology results show a Gram stain with many white blood cells, Gram-positive cocci and Gram-positive rods. There is no formal growth on the culture yet. Assessment & Plan Assessment & Plan narrative: The patient has a long standing back infection. She is physiologically stable. Culture results are pending but preliminary Gram stain results show Gram-positive organisms both cocci and rods. The patient is currently on vancomycin and will continue on that drug until we have final results. The patient is insistent she is unwilling to have surgery by anybody other than Dr. Lombardo (who is presently out of the country I believe) and with the assistance of ZAHRA Stewart PA-C. We will check the culture results again tomorrow and adjust her antibiotic coverage. I have attempted to contact Dr. Lombardo to discuss the plan. To determine culture results it is necessary to phone [facility] at . Time Spent With Patient Time with patient: less than 15 minutes Quality VTE Deep Vein Thrombosis/Pulmonary Embolism Present on Admission: No
--- NOTE | 2019-07-24 11:10 | PC.NURSE ---
Addendum entered by Pamella Hernandez R.N. 07/24/19 13:50: no further c/o pain, receiving vanco iv, awaiting culture results- gram + cocci / gram - bacilli initially per out pt , pt calm and reports willing to have surgery by DR. CODY assisted by ZAHRA SCHULZ- Original Note: UPON INITIAL ASSESSMENT- PT WAS TEARFUL AND ANXIETY-RIDDEN IT WAS DIRECTLY AFTER MD ROUNDS WITH DR HARP- SHE WAS CRYING STATING SHE DIDN'T WANT TO HAVE ANOTHER SURGERY - CALMED PT AND ALLOWED HER TO VENT, SHE WAS THANKFUL FOR THIS CHAT AND APPEARRED TO BE IN BETTER SPIRITS - MEDICATED FOR BACK PAIN PT RATES 7/ WITH MUSCLE SPASMS- SHE SAT ON EDGE OF BED FOR AM MEAL AND TOOK ALL MEDICATIONS WITHOUT PROBLEM
[2019-07-24] MEDS: NICOTINE 14 PATCH 14 MG TOP (13:34)
[2019-07-24] MEDS: ONDANSETRON 4 MG ODT PO (14:44)
[2019-07-24] MEDS: HYDROMORPHONE 0.5 MG INJ 0.2 MG IV ×2 (16:49→23:43)
--- NOTE | 2019-07-24 17:10 | DI.MRI.S_ITS ---
PROCEDURE: MR LUMBAR SPINE WO/W CON INDICATIONS: lumbar abscess TECHNIQUE: Noncontrast sagittal T1 spin echo and T2 fast spin echo, sagittal STIR, axial T1 and T2 fast spin echo through the lumbar spine. In cases with scoliosis, additional coronal T2 fast spin echo may be performed. After the administration of contrast, sagittal and axial T1 spin echo with fat saturation through the lumbar spine. COMPARISON: [facility], , L-SPINE 2-3 VIEWS, 01/02/2017, 9:17. FINDINGS: Image quality: Excellent. Alignment and curvature: There is normal bony alignment. Marrow: Marrow is of normal overall signal. No acute vertebral body compression fractures. No suspicious marrow enhancement. Spinal cord: Conus medullaris terminates at the T12-L1 level. Visualized spinal cord demonstrates normal signal, without suspicious enhancement. Paraspinous soft tissues: Within these superficial subcutaneous fat along the left back posteriorly, there is a fluid collection seen that measures 9 cm craniocaudal by 2.7 cm transversely, with an AP extent of 2.9 cm. At least one bubble of gas can be seen within this fluid collection. There is relatively prominent rim enhancement seen. Surrounding soft tissue edema and inflammatory change can be seen. Postoperative changes are seen, bilateral pedicle screws at the L4, L5, and S1 levels. Vertical fixation rods are seen. Disc spacers are seen at L4-L5 and L5-S1. There is associated susceptibility artifact. T10-T11: Moderate loss of disc height is seen. There is a nonacute Schmorl's node seen at the superior endplate of T11. Moderate disc bulge is seen, with moderate central canal narrowing. There is mild left-sided neural foraminal narrowing seen. T11-T12: The disc height is well-preserved. Loss of disc signal is seen at this level. T12-L1: Normal appearance. L1-L2: The disc height and disc signal are relatively well-preserved. Pjcr-ei-vdorqjuk disc bulge is seen, which is eccentric to the right side. Lhxg-xc-lwzocymb facet hypertrophy is seen. No significant neural foraminal or central canal narrowing can be seen. L2-L3: The disc height is well-preserved. Loss of disc signal is seen at this level. Moderate generalized disc bulge is seen. Moderate facet joint hypertrophy is seen. Mild bilateral neural foraminal narrowing is seen. Moderate central canal narrowing is seen. L3-L4: The disc height is well-preserved. Loss of disc signal is seen at this level. Moderate disc bulge is seen, which is eccentric to the left. Moderate facet joint hypertrophy is seen. There is mild to moderate right-sided and moderate left-sided neural foraminal narrowing seen. At least moderate central canal narrowing is seen. L4-L5: Postoperative changes are seen at this level. Moderate generalized disc bulge is seen. Moderate facet joint hypertrophy is seen. No significant neural foraminal narrowing can be seen. Moderate central canal narrowing is seen. L5-S1: There are postoperative changes at this level. Mild to moderate disc bulge is seen. There is at least moderate bilateral neural foraminal narrowing seen, right worse than left. There is a degree of compression seen upon the exiting nerve roots. Moderate central canal narrowing is seen. IMPRESSION: There is a superficial soft tissue abscess seen within the subcutaneous tissues on the left. L4-S1 postoperative change. Degenerative changes are seen, which are most prominent at the L5-S1 level. Dictated by: Michael Odonnell M.D. on 07/25/2019 at 11:17 Approved by: Michael Odonnell M.D. on 07/25/2019 at 11:26
--- NOTE | 2019-07-24 17:12 | P.PN_ITS ---
Subjective Subjective Date Patient Seen: 07/24/19 Time Patient Seen: 17:12 Interval history: I was asked to see this patient by Dr. Tomas and Dr. Lombardo. This is a 58-year-old female with a lumbar wound infection. She had an L5-S1 TLIF on 06/04/2015. 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 She was then brought back to the operating room on 01/02/2017 for a fusion at the next level up at L4-5 with revision of her hardware from L4 through S1. She had done fairly well with this until she had pneumonia this winter. She began getting increasing pain in her back and was found to have an abscess at the surgical site, felt to be seeded from her pneumonia. She was brought to the operating room on 12/08/2018 and 12/10/2018 for irrigation debridement. Nothing grew from these cultures but she was sent home from IV then oral antibiotics and seemed to be doing well. A few weeks ago she began having increasing pain into the lower back. She denies any recent infection. She came back to the clinic and Dr. Lombardo had tried to aspirate her back but no fluid was obtainable. A CT scan was then done showing a fluid collection and this was aspirated in clinic by Elvis Vargas PA-C. I do not have the results from this but according to Dr. Tomas, he was called earlier and told that the Gram stain had gram-positive cocci and rods. She was placed on IV vancomycin and I was asked to evaluate further. She does report subjective fevers and chills over the past week. She denies any pain into her legs, all the pain is across her back. It is very uncomfortable to lay on her back. She has been having some drainage from the back. She has also been very nauseated with her medications and her pain. She is an insulin- dependent diabetic but denies any neuropathy with pain numbness or weakness in the feet. No recent weight loss. Denies easy bleeding. No chest pain or shortness of breath. Exam Vital Signs (past 8 hours): - 07/24/19 09:50 07/24/19 10:37 07/24/19 12:15 Temperature 97.5 F L 97.3 F L Pulse Rate 80 77 Respiratory Rate 22 20 Blood Pressure 141/77 H 145/52 H Pulse Oximetry 96 98 07/24/19 15:30 Temperature 98.3 F Pulse Rate 76 Respiratory Rate 15 Blood Pressure 120/66 Pulse Oximetry 92 Oxygen Delivery Method Room Air Oxygen Flow Rate 0 Const Orientation: alert and oriented x3 Resp Auscultation: clear to auscultation bilaterally Cardio Rate: regular rate Rhythm: regular rhythm Back/Spine/Pelvis Other: Right incision clean dry intact. Left incision erythematous for the surrounding 1-2 cm. 2 cm blister in the middle of the incision with some yellow crusty serosanguineous drainage surrounding this. No active drainage at this time. 5/5 motor, 1+ pulses, intact sensation through both lower extremities. Negative straight leg raising. Objective Imaging CT scan lumbar spine: My impression: Solid instrumented fusion from L4 through S1 with interbody cages and posterior screws. 5 cm fluid collection in the left superficial tissue, does not appear to be any tracking deep. This fluid collection looks about the same as her CT scan from November. Labs Result Diagrams: 07/23/19 09:25 07/22/19 18:46 Labs: Laboratory Results - last 24 hr 07/23/19 21:00 Vancomycin Trough 11.7 Assessment & Plan Assessment & Plan narrative: Late lumbar wound infection. As this started 2 years after her most recent fusion, most likely this was seeded from the pu lmonary source in November. However, this appears to be coming back with positive wound cultures and a very infected looking wound. My recommendation is for surgical debridement. I explained to her that it is necessary to wash this out. IV antibiotics are not going to be able to maintain what she has. She is very hesitant to do this without Dr. Lombardo or ADARSH Zhong. However, Dr. Lombardo is out of town and I will have to check with ADARSH Zhong for availability. Risks and benefits of surgery were discussed including not limited to medical risk with heart attack, stroke, , DVT, PE, infection, bleeding, scarring, nerve injury with pain numbness weakness paralysis, failure to alleviate infection and symptoms, need for further surgery. I want to get an MRI with contrast to make sure there is no infection over on the right-hand side or anything tracking along the screws. As this has come back, it may be prudent to take the screws out at this time. She appears to have a solid fusion on CT and should be stable with hardware removal. We will plan on surgery as an add on tomorrow evening. All questions were answered. Quality VTE Deep Vein Thrombosis/Pulmonary Embolism Present on Admission: No
[2019-07-24 18:00] LABS: BUN Creatinine Ratio 38.3 (6-22); Blood Urea Nitrogen 23 mg/dL (7-17); Calcium 9.1 mg/dL (8.4-10.2); Carbon Dioxide 26 mmol/L (22-32); Chloride 99 mmol/L (98-107); Estimated Glomerular Filt Rate > 60.0 mL/min (>60); Glucose 252 mg/dL (70-100); HEMOLYSIS < 15 (0-50); Potassium 4.9 mmol/L (3.4-5.1); Sodium 134 mmol/L (137-145)
[2019-07-24] MEDS: ATORVASTATIN 20 MG TABLET PO (21:33)
[2019-07-24] MEDS: ZOLPIDEM 5 MG TABLET PO (23:39)
[2019-07-25] VITALS (17 sets, daily range): BP systolic 117–152; BP diastolic 31–75; PULSE 65–81; RESP 16–26; TEMP 36.2–37.3; O2SAT 95–100
[2019-07-25] MEDS: VANCOMYCIN 1,000 MG/200 ML PIGGYBACK 200 MG IV ×2 (05:14→13:55)
[2019-07-25] MEDS: ONDANSETRON 4 MG/2 ML INJ IV ×2 (05:14→14:00)
[2019-07-25] MEDS: OXYCODONE IR 10 MG TABLET PO ×4 (05:15→21:42)
--- NOTE | 2019-07-25 05:53 | PC.NURSE ---
Pt has had nausea and pain on this shift. Pain 05/04. VSS. Pt has had drainage at aspiration site. Sterile 4x4 gauze and ABD placed on aspiration site. Site had puss drainage at the site along with serosanguineous drainage that saturated sheets and clothing.
--- NOTE | 2019-07-25 07:43 | PM.PN.1 ---
Subjective Subjective Date Patient Seen: 07/25/19 Time Patient Seen: 07:43 Interval history: Having low back pain. No radiation with pain or numbness going into the legs. Her blister ruptured last night. Exam Vital Signs (past 8 hours): - 07/24/19 23:45 07/25/19 03:00 Temperature 98.5 F 98.4 F Pulse Rate 79 73 Respiratory Rate 20 18 Blood Pressure 130/45 L 135/75 Pulse Oximetry 98 95 Oxygen Delivery Method Room Air Oxygen Flow Rate 0 Const Orientation: alert and oriented x3 Back/Spine/Pelvis Other: 5/5 motor, intact sensation, 1+ pulses both lower extremities. Serosanguineous drainage from open wound on the left side. Objective Labs Result Diagrams: 07/23/19 09:25 07/24/19 17:40 Labs: Laboratory Results - last 24 hr 07/24/19 17:40 Sodium 134 L Potassium 4.9 Chloride 99 Carbon Dioxide 26 BUN 23 H Creatinine 0.60 Estimated GFR > 60.0 BUN/Creatinine Ratio 38.3 H Glucose 252 H Calcium 9.1 Assessment & Plan Assessment & Plan narrative: This appears to be recurrent superficial abscess. We are waiting on her MRI with contrast today to make sure it does not go anywhere besides just the left side and superficial. Plan for washout later on today. If this does appear to be tracking down to the hardware, I will plan on taking out the screws as well. Surgery was again discussed with the patient. Quality VTE Deep Vein Thrombosis/Pulmonary Embolism Present on Admission: No
[2019-07-25] MEDS: TRIAMTERENE/HCTZ 37.5/25 TABLET 0.5 CAP PO (08:21)
[2019-07-25] MEDS: SERTRALINE 50 MG TABLET 150 MG PO (08:22)
[2019-07-25] MEDS: LISINOPRIL 20 MG TABLET PO (08:22)
[2019-07-25] MEDS: hydrOXYzine pamoate 25 MG CAPSULE PO ×2 (08:22→13:55)
[2019-07-25] MEDS: GABAPENTIN 600 MG TABLET PO ×3 (08:22→21:33)
[2019-07-25] MEDS: METFORMIN HCL 500 MG TABLET PO ×2 (08:22→21:33)
[2019-07-25] MEDS: DOCUSATE 100 MG CAPSULE PO ×2 (08:22→21:33)
[2019-07-25] MEDS: NICOTINE 14 PATCH 14 MG TOP (08:23)
[2019-07-25] MEDS: INSULIN ASPART 100 UNIT/ML INSULN PEN 60 UNIT SUBCUT ×2 (08:26→12:01)
[2019-07-25] MEDS: INSULIN GLARGINE 100 UNIT/ML 10ML VIAL SUBCUT ×2 (08:28→21:39)
[2019-07-25] MEDS: LORazepam 2 MG/ML INJ 0.5 MG IV (10:43)
--- NOTE | 2019-07-25 10:50 | PC.NURSE ---
Day shift: Pt off unit for MRI. Medicated for anxiety per DEC.
--- NOTE | 2019-07-25 11:46 | PC.NURSE ---
Day shift: Pt back on AC unit at this time. C/o the MRI being warm and like a sauna.
[2019-07-25 13:25] LABS: Vancomycin Trough 11.3 ug/mL (10-20)
[2019-07-25] MEDS: VANCOMYCIN TROUGH 1 REQUEST MISC ×2 (13:53→21:29)
--- NOTE | 2019-07-25 16:58 | DI.RAD.S_ITS ---
PROCEDURE: XR CHEST FOR PICC 1V INDICATIONS: PICC TECHNIQUE: One view of the chest was acquired. COMPARISON: [facility], CR, XR CHEST 2 VIEWS, 11/22/2018, 12:12. FINDINGS: Surgical changes and devices: There is a right PICC with the tip projecting to the area of distal SVC. Lungs and pleura: Lungs are clear. No pleural effusions or pneumothorax. Mediastinum: Mediastinal contours appear normal. Heart size is normal. Bones and chest wall: No suspicious bony lesions. Overlying soft tissues appear unremarkable. IMPRESSION: The tip of the right PICC projects to the area of distal SVC. Dictated by: Constantino Ku M.D. on 07/25/2019 at 17:21 Approved by: Constantino Ku M.D. on 07/25/2019 at 17:22
[2019-07-25] MEDS: HYDROMORPHONE 0.5 MG INJ IV (17:30)
--- NOTE | 2019-07-25 17:38 | PM.PREOP ---
Pre-operative Note Interval Note History & Physical reviewed/Exam performed by Physician: Yes Changes to H&P: No H&P completed within 30 days and has changed as indicated here:: new MRI - L superficial abscess, no R side involvement, nothing deeper than the muscle fascia. No involvement around hardware
[2019-07-25] MEDS: LACTATED RINGERS 1,000 ML 42 ML IV (17:50)
--- NOTE | 2019-07-25 18:34 | P.OP_ITS ---
Operative Date/Time/Diagnoses Date of procedure: 07/25/19 Time of procedure: 18:35 Pre-op diagnosis: lumbar abscess Post-op diagnosis: same Procedure & Clinicians Procedure: irrigation and debridement of lumbar abscess Same procedure as scheduled: Yes Indications: 58 year old female with a lumbar abscess. This occurred at her surgery wound site from 2.5 years ago. It was felt she would require operative debridement. Risks and benefits of surgery discussed and appropriate consents obtained. Surgeon: Luca Doty Medical Technologist Clinical: Melissa Stewart Anesthesia Type: General Operative Notes Findings: None Closure Type: non-primary (Closed with a wound VAC) Specimen(s): other (Cultures from lumbar wound) Estimated Blood Loss (mL): 10 Procedure in detail: Patient brought to the operating room and intubated on the stretcher. She was rolled over to the well-padded prone position on the Juan J table. A time-out was performed. She has had antibiotics while in the hospital but we did not give any antibiotics for culture purposes. The back was prepped and draped in the standard sterile fashion. She had an open 5 mm draining area. This was opened up to a 5 cm incision and both sharply and bluntly dissected down to the deep abscess. Wound cultures were taken and sent for microbiology. We then used the Su elevator to sharply debride the subcutaneous adipose tissue as well as the muscle fascia. This tracked down left towards the pelvis and we followed the track until we had all completely debrided. The wound was then copiously irrigated. We repeated the process with a sharp Su which completed the incisional debridement. The wound was then irrigated again. A wound VAC was cut and placed into the wound and then placed and sealed for good suction. She was then rolled over, extubated, and recovered with no complications. Complications: none Post-operative Condition: stable Disposition: Acute Care Plan for aftercare: Inpatient. Maintain on IV antibiotics. Plan for repeat washout and probable wound closure on .
[2019-07-25] MEDS: SODIUM CHLORIDE IRRIG SOLUTION 3,000 ML, GENTAMICIN 240 MG IRR (18:48)
[2019-07-25] MEDS: HYDROMORPHONE 2 MG INJ 0.5 MG IV (19:08)
--- NOTE | 2019-07-25 20:12 | SUR.PHASEI ---
late entry: pt medicated with dilaudid, pain down to 5/10. tolerated ice chips, wound vac intact to back. called report to azam cao, pt transported up to room and left in stable condition.
[2019-07-25] MEDS: LACTATED RINGERS 1,000 ML 125 ML IV (20:20)
[2019-07-25] MEDS: ASPIRIN EC 81 MG TABLET PO (21:33)
[2019-07-25] MEDS: SENNOSIDES 8.6 MG TABLET 17.2 MG PO (21:33)
[2019-07-25] MEDS: ATORVASTATIN 20 MG TABLET PO (21:34)
[2019-07-26] MEDS: HYDROMORPHONE 2 MG INJ 0.5 MG IV
[2019-07-26] MEDS: VANCOMYCIN 1,250 MG in SODIUM CHLORIDE 0.9% 250 ML IV ×3 (00:08→22:29)
[2019-07-26 02:55] VITALS: BP 110/43; PULSE 67; RESP 18; TEMP 37.2; O2SAT 96
[2019-07-26] MEDS: OXYCODONE IR 10 MG TABLET PO (04:46)
--- NOTE | 2019-07-26 05:23 | PC.NURSE ---
VSS, lung sounds clear bilaterally, Pt has pain 7-8/10, medicated w/ Oxycodone 10mg. Pt had to have Vanco re-timed at shift change since there was no medication available in night Pharmacy. Doses changed from starting at 2100 to 0000. Note was written and sent to pharmacy about re-timing vanco trough blood draw for pt. Pt developed pain, swelling, redness and hard lump inferior to PICC line site on Right lower arm below elbow. Dr. Tomas was notified at 0520 and gave verbal order to call PICC Line nurse to evaluate. Will call to leave message. Fluids are off at this time when AM PA's round will ask them to take a look at site as well.
[2019-07-26 05:47] LABS: Add Manual Diff / Slide Review NO; Basophils Absolute Auto 100 /uL (0-100); Basophils Percent Auto 0.4 % (0-2); Eosinophils Absolute Auto 200 /uL (0-450); Eosinophils Percent Auto 1.3 % (2-4); Hematocrit 30.9 % (36-46); Hemoglobin 10.4 g/dL (12.0-16.0); Lymphocytes Absolute Auto 2400 /uL (1100-4500); Lymphocytes Percent Auto 18.1 % (25-40); Mean Corpuscular HGB Conc 33.5 % (30-36); Mean Corpuscular Hemoglobin 30.6 PG (26-34); Mean Corpuscular Volume 91.5 fL (80-100); Monocytes Absolute Auto 1000 /uL (0-900); Neutrophils Absolute Auto 9500 /uL (1500-7000); Neutrophils Percent Auto 72.2 % (50-75); Platelet Count 409 X10^3/uL (150-400); Red Blood Cell Count 3.38 X10^6/uL (4.0-5.2); Red Cell Distribution Width 13.3 % (11.6-14.8); White Blood Cell Count 13.1 X10^3/uL (4.5-11.0)
[2019-07-26 05:49] LABS: BUN Creatinine Ratio 38.3 (6-22); Blood Urea Nitrogen 23 mg/dL (7-17); Calcium 9.1 mg/dL (8.4-10.2); Carbon Dioxide 26 mmol/L (22-32); Chloride 103 mmol/L (98-107); Estimated Glomerular Filt Rate > 60.0 mL/min (>60); Glucose 312 mg/dL (70-100); HEMOLYSIS < 15 (0-50); Sodium 135 mmol/L (137-145)
[2019-07-26 05:53] LABS: Potassium 5.4 mmol/L (3.4-5.1)
--- NOTE | 2019-07-26 07:33 | P.PN_ITS ---
Subjective Subjective Date Patient Seen: 07/26/19 Time Patient Seen: 07:33 Interval history: She is having a fair amount of pain across the back with some spasms. Exam Vital Signs (past 8 hours): - 07/26/19 02:55 Temperature 98.9 F Pulse Rate 67 Respiratory Rate 18 Blood Pressure 110/43 L Pulse Oximetry 96 Oxygen Delivery Method Nasal Cannula Oxygen Flow Rate 0 Const Orientation: alert and oriented x3 Back/Spine/Pelvis Other: 5/5 motor both lower extremities. Wound VAC dressing intact Objective Labs Result Diagrams: 07/26/19 05:15 07/26/19 05:15 Labs: Laboratory Results - last 24 hr 07/25/19 07/25/19 07/26/19 12:45 20:42 05:15 WBC 13.1 H RBC 3.38 L Hgb 10.4 L Hct 30.9 L MCV 91.5 MCH 30.6 MCHC 33.5 RDW 13.3 Plt Count 409 H Neut % (Auto) 72.2 Lymph % (Auto) 18.1 L Daniels % (Auto) 8.0 Eos % (Auto) 1.3 L Baso % (Auto) 0.4 Neut # (Auto) 9500 H Lymph # (Auto) 2400 Daniels # (Auto) 1000 H Eos # (Auto) 200 Baso # (Auto) 100 Sodium Potassium Chloride Carbon Dioxide BUN Creatinine Estimated GFR BUN/Creatinine Ratio Glucose Calcium Vancomycin Trough 11.3 13.0 07/26/19 05:15 WBC RBC Hgb Hct MCV MCH MCHC RDW Plt Count Neut % (Auto) Lymph % (Auto) Daniels % (Auto) Eos % (Auto) Baso % (Auto) Neut # (Auto) Lymph # (Auto) Daniels # (Auto) Eos # (Auto) Baso # (Auto) Sodium 135 L Potassium 5.4 H Chloride 103 Carbon Dioxide 26 BUN 23 H Creatinine 0.60 Estimated GFR > 60.0 BUN/Creatinine Ratio 38.3 H Glucose 312 H Calcium 9.1 Vancomycin Trough Assessment & Plan Post-op Postoperative Procedures: Procedures Operation Date: 07/25/19 18:00 Actual Procedures Side Surgeon p Incision and Drainage lumbar wound with application of wound vac Luca Doty MD Her Gram stain from aspiration on Thursday had Gram-positive rods and cocci, but nothing has grown out of these cultures. Last night's debridement has Gram- variable rods only on the Gram stain. Currently on vancomycin. I am going to bring on the medicine team for assistance with treatment of her infection as well as her diabetes as her glucose is running in the 300s. Plan for return trip to the operating room for repeat washout on . Quality VTE Deep Vein Thrombosis/Pulmonary Embolism Present on Admission: No
[2019-07-26 07:48] VITALS: BP 147/52; PULSE 68; RESP 18; TEMP 36.5; O2SAT 98
[2019-07-26 08:55] VITALS: BP 147/52; PULSE 68
[2019-07-26] MEDS: METFORMIN HCL 500 MG TABLET PO (08:55)
[2019-07-26] MEDS: hydrOXYzine pamoate 25 MG CAPSULE PO ×4 (08:55→17:07)
[2019-07-26] MEDS: GABAPENTIN 600 MG TABLET PO ×3 (08:55→20:16)
[2019-07-26] MEDS: LISINOPRIL 20 MG TABLET PO (08:55)
[2019-07-26] MEDS: NICOTINE 14 PATCH 14 MG TOP (08:56)
[2019-07-26] MEDS: SERTRALINE 50 MG TABLET 150 MG PO (08:56)
[2019-07-26] MEDS: DOCUSATE 100 MG CAPSULE PO ×2 (08:56→20:16)
[2019-07-26] MEDS: INSULIN GLARGINE 100 UNIT/ML 10ML VIAL SUBCUT ×2 (08:57→22:04)
[2019-07-26] MEDS: INSULIN ASPART 100 UNIT/ML 10ML VIAL 60 UNIT SUBCUT ×3 (08:58→17:18)
[2019-07-26] MEDS: OXYCODONE IR 5 MG TABLET PO ×4 (09:01→20:17)
[2019-07-26] MEDS: TRIAMTERENE/HCTZ 37.5/25 TABLET 0.5 CAP PO (09:19)
--- NOTE | 2019-07-26 11:29 | PM.CN ---
History of Present Illness Consult details Date Patient Seen: 07/26/19 Chief complaint: Low back pain status post surgery Reason for consult: Assist with diabetic and antibiotic management Requesting provider: Luca Doty Narrative: Low back pain status post surgery Narrative: Patient with a history of multiple surgeries to the lumbar spine. Patient also had a previous history of a infection post surgically that required irrigation and debridement as well as IV antibiotics and long-term oral antibiotics. Patient has saw Dr. Lombardo her surgeon last week with some concerns of pain and discomfort to the back. There was concerns the patient might have a recurrence infection. Patient had a aspiration by Dr. Lombardo at that time and there was no sign of any purulence. Patient returned to clinic yesterday because she was having continued pain and discomfort. Patient's saw Elvis Vargas where she was sent for a CT scan and blood work. CT scan showed signs of possible hardware loosening. There was a possible fluid collection but compared to previous images that fluid collection had been there previously and there was no change on the most recent CT scan. Patient then returned the clinic today and saw Elvis Vargas. Douglas Vargas repeated the aspiration that Dr. Lombardo did and was able to get some possible purulence. This was sent to microbiology today. No results are present at this point. Due to concerns of possible infection, patient was admitted to the hospital. I was asked by Dr. irvin to assist with diabetic management in addition to antibiotic selection. The patient has long history of type 2 diabetes. She has required high-dose insulin in addition to metformin. Since hospitalization she has had elevated blood sugars here as well. She has been started on vancomycin for gram-positive cocci. She has Gram-positive for I as well. Will add ceftriaxone to her regimen until the Gram-positive rods can be identified. [facility] Medical History Anxiety (Acute) Asthma (Acute) Chronic pain (Acute) CVA (cerebral vascular accident) (Acute) Depression (Acute) Diabetes (Acute) Diverticulosis (Acute) Eczema (Acute) Edema (Acute) Fibromyalgia (Acute) Former smoker (Acute) Frequent UTI (Acute) Heart murmur (Acute) [place] (hard of hearing) (Acute) HTN (hypertension) (Acute) Hyperlipidemia (Acute) Hypothyroid (Acute) Palpitations (Acute) Sinus drainage (Acute) Sleep apnea (Acute) SOB (shortness of breath) (Acute) Surgical History History of 2 sections (Acute) History of arthroscopy of left shoulder (Acute) History of kidney surgery (Acute) Hx of dilation and curettage (Acute) Hx of laminectomy (Acute ~03/2016) Hx of tonsillectomy (Acute) S/P lumbar fusion (Acute ~05/2015) S/P lumbar fusion (Acute ~12/2016) Social History household members: spouse and family Smoking Status: Current every day smoker alcohol intake: never Social History household members: spouse and family Smoking Status: Current every day smoker alcohol intake: never Meds Home Medications and Allergies Home Medications Medication Instructions Recorded Confirmed Type Lantus U-100 Insulin 100 u SQ BID #0 08/06/12 07/22/19 History lisinopril 20 mg PO QDAY #0 10/09/16 07/22/19 History metformin [Glucophage] 1 tab PO BID #0 12/17/16 07/22/19 History Humalog U-100 Insulin 40 - 80 unit SUBCUT TID 12/07/18 07/22/19 History aspirin 81 mg PO BEDTIME 12/07/18 07/22/19 History atorvastatin 20 mg PO DAILY PRN 12/07/18 07/22/19 History cetirizine 10 mg PO DAILY 12/07/18 07/22/19 History gabapentin [Neurontin] 600 mg PO TID 12/07/18 07/22/19 History hydroxyzine HCl 25 mg PO TID PRN 12/07/18 07/22/19 History sertraline [Zoloft] 150 mg PO QDAY 12/07/18 07/22/19 History Excedrin Extra Strength 0.5 tab PO QID PRN 12/08/18 07/22/19 History albuterol sulfate 1 neb INHALATION Q4H PRN 12/08/18 07/22/19 History ipratropium bromide 1 neb INHALATION Q4H PRN 12/08/18 07/22/19 History triamterene-hydrochlorothiazid 0.5 tab PO QDAY 12/08/18 07/22/19 History hydrocodone-acetaminophen 1 tab PO Q4HR PRN 07/22/19 07/22/19 History Allergies Allergy/AdvReac Type Severity Reaction Status Date / Time Sulfa (Sulfonamide Allergy Severe SWELLING, Verified 12/08/18 13:09 Antibiotics) NAUSEA cephalexin AdvReac Severe VOMITING Verified 12/08/18 13:09 codeine AdvReac Severe NAUSEA/VOMI Verified 12/08/18 13:09 TING Review of Systems Review of Systems Narrative: Patient reports some nausea, back pain ROS Unobtainable: All systems reviewed & are unremarkable except as noted in HPI and below Exam Vital Signs (past 8 hours): - 07/26/19 07:48 07/26/19 08:55 Temperature 97.7 F Pulse Rate 68 68 Respiratory Rate 18 Blood Pressure 147/52 H 147/52 H Pulse Oximetry 98 Oxygen Delivery Method Nasal Cannula Oxygen Flow Rate 0 Narrative Exam Narrative: Ill-appearing obese female lying in bed HEENT: Normocephalic atraumatic, sclerae anicteric, oropharynx is clear, neck is supple Lungs: Clear to auscultation Cardiac exam: Regular rate and rhythm normal S1-S2 with a 2/6 systolic ejection murmur Abdomen: Soft obese, nontender, nondistended, there is no appreciable hepatosplenomegaly Back: Wound dressing is dry, drain in place Extremities: No edema Neuro exam: Plan patient is awake alert and answers questions appropriately, her cranial nerves are intact, her strength appears to be symmetric and equal, sensation is grossly intact Skin exam: No lesions noted Objective Labs Result Diagrams: 07/26/19 05:15 07/26/19 05:15 Labs: Laboratory Results - last 24 hr 07/25/19 07/25/19 07/26/19 12:45 20:42 05:15 WBC 13.1 H RBC 3.38 L Hgb 10.4 L Hct 30.9 L MCV 91.5 MCH 30.6 MCHC 33.5 RDW 13.3 Plt Count 409 H Neut % (Auto) 72.2 Lymph % (Auto) 18.1 L [place] % (Auto) 8.0 Eos % (Auto) 1.3 L Baso % (Auto) 0.4 Neut # (Auto) 9500 H Lymph # (Auto) 2400 [place] # (Auto) 1000 H Eos # (Auto) 200 Baso # (Auto) 100 Sodium Potassium Chloride Carbon Dioxide BUN Creatinine Estimated GFR BUN/Creatinine Ratio Glucose Calcium Vancomycin Trough 11.3 13.0 07/26/19 05:15 WBC RBC Hgb Hct MCV MCH MCHC RDW Plt Count Neut % (Auto) Lymph % (Auto) [place] % (Auto) Eos % (Auto) Baso % (Auto) Neut # (Auto) Lymph # (Auto) [place] # (Auto) Eos # (Auto) Baso # (Auto) Sodium 135 L Potassium 5.4 H Chloride 103 Carbon Dioxide 26 BUN 23 H Creatinine 0.60 Estimated GFR > 60.0 BUN/Creatinine Ratio 38.3 H Glucose 312 H Calcium 9.1 Vancomycin Trough Assessment & Plan Assessment & Plan narrative: Impression 1. 58-year-old female admitted to the hospital for recurrent back pain. It she is status post I&D and a placement of wound VAC. The patient is growing Gram-positive rods, and gram-positive cocci from her wound cultures thus far. Agree with plan to continue vancomycin. Id will broaden coverage to include ceftriaxone 1 until definitive organisms have been identified with culture and sensitivities. The patient has had a fair amount of back pain. Will continue to manage her pain accordingly. Will cover her cultures with broad-spectrum antibiotics until a definitive organisms have been identified. 2. Type 2 diabetes, patient with a high level of insulin resistance. Will resume her usual insulin at home which is 100 units twice daily. In addition the patient will receive a sliding scale plus her usual insulin for pre meals. Her metformin will be held during the hospital stay but can be resumed as an outpatient. 3. Hypertension, will continue her lisinopril 4. Hyperlipidemia, continue statin 5. Depression continue sertraline 6. Morbid obesity Thank you very much for this consultation will continue to follow with you
[2019-07-26 12:00] VITALS: BP 142/60; PULSE 70; RESP 18; TEMP 36.8; O2SAT 98
[2019-07-26] MEDS: ACETAMINOPHEN 325 MG TABLET 975 MG PO (12:04)
[2019-07-26] MEDS: INSULIN ASPART 100 UNIT/ML 10ML VIAL SUBCUT ×2 (12:07→17:19)
--- NOTE | 2019-07-26 13:00 | PT-IP ANOTE ---
Pt adamantly refused PT eval and told PT to go away. Check on pt later.
--- NOTE | 2019-07-26 13:57 | DI.US.S_ITS ---
PROCEDURE: US PERIPH VENOUS UP EXTREM RT INDICATIONS: RULE OUT DEEP VEIN THROMBOSIS RIGHT ARM AFTER PICC LINE TECHNIQUE: Real-time imaging, as well as color and pulse Doppler interrogation, was performed of the right upper extremity deep veins from the inferior neck to the antecubital fossa. COMPARISON: None. FINDINGS: The internal jugular vein, visualized portions of the subclavian vein, axillary, and brachial veins are free of intraluminal thrombus. Where physically possible, the veins are normally compressible. Color and pulse Doppler demonstrate normal intraluminal flow, with expected phasicity and pulsatility.. Sonographic imaging of the site of the patient's area of erythema, pain, and palpable mildly demonstrates occlusive thrombus within the underlying basilic vein within the upper aspect of the right forearm. The PICC line catheter is incidentally noted within it the upper arm. IMPRESSION: 1. No evidence of deep vein thrombosis of the right upper extremity. 2. Superficial thrombophlebitis of the basilic vein with uniform without extension into the deep venous system. Dictated by: Camden Limon M.D. on 07/26/2019 at 14:21 Approved by: Camden Limon M.D. on 07/26/2019 at 14:25
--- NOTE | 2019-07-26 14:08 | OT.IP.EVAL ---
Current Diagnoses Infection following a procedure, other surgical site, initial encounter (07/22/19) Surgery Performed Operation Date: 07/25/19 18:00 Actual Procedures p Incision and Drainage lumbar wound with application of wound vac - Luca Doty MD Operation Date: 07/28/19 12:15 <No data on this case meets the specified criteria> Past Medical History (Last Reviewed 07/26/19 @ 11:30 by Hailey Kaplan MD) Anxiety (Acute) Asthma (Acute) Chronic pain (Acute) CVA (cerebral vascular accident) (Acute) Depression (Acute) Diabetes (Acute) Diverticulosis (Acute) Eczema (Acute) Edema (Acute) Fibromyalgia (Acute) Former smoker (Acute) Frequent UTI (Acute) Heart murmur (Acute) [place] (hard of [place]) (Acute) HTN (hypertension) (Acute) Hyperlipidemia (Acute) Hypothyroid (Acute) Palpitations (Acute) Sinus drainage (Acute) Sleep apnea (Acute) SOB (shortness of breath) (Acute) Surgical History (Last Reviewed 07/26/19 @ 11:31 by Hailey Kaplan MD) History of 2 sections (Acute) History of arthroscopy of left shoulder (Acute) History of kidney surgery (Acute) Hx of dilation and curettage (Acute) Hx of laminectomy (Acute ~03/2016) Hx of tonsillectomy (Acute) S/P lumbar fusion (Acute ~05/2015) S/P lumbar fusion (Acute ~12/2016) Occupational Therapy Inpatient Evaluation/Re-Eval M1 PT/OT-IP Prior Functional Status Start: 07/23/19 11:19 Freq: NEEDED Status: Active Protocol: Document 07/26/19 14:08 ADELA (Rec: 07/26/19 14:36 [facility] [id number]) Medical Review Prior Functional Status Medical History Reviewed Yes Diet/Fluid Consistency Regular Communication WNL, slow rate of speech noted Mobility and Gait Pt stated that she is modified independent with ambulation using SPC. 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 Pt has been assisting mother in law with bathing. Pt/ share cooking.He does grocery shopping as pt does not drive. works but has flexible hours. Pt manages her own medications at home. Prior Functional Level (Other details) They plan to hire bath aide and caregiver for pt's mother in law during pt's recovery. Social History Household Members spouse,family Living Arrangements Mobile home Number of Floors (Floors) One Floor Number of Stairs To Enter/Railing? 12 wide low stairs to entrance ,walker will fit on each step Home Environment High Toilet,Walk in Shower Home Equipment Front Wheel Walker,Straight Cane,Shower Seat with Backrest ,Hand Held Shower,Anesthesiologist Physician,Sock Aid,Grab Bars Near Toilet, Grab Bars In Shower Employment Status Unemployed M2 OT-IP Current Condition Start: 07/26/19 14:15 Freq: Status: Active Protocol: Document 07/26/19 14:08 PJM (Rec: 07/26/19 14:36 [facility] [id number]) Occupational Therapy Current Condition Current Condition Evaluation Date 07/26/19 Treatment Diagnosis decreased slef care and functional mobility s/p I&D of lumbar abscess Diagnosis Onset Date 07/22/19 Post Operative Precautions Lumbar Precautions Log Roll,No Twisting,Limit Bending Other Precautions Need to clarify lifting restriction with MD/PA M3 OT- IP Subjective and Pain Start: 07/26/19 14:15 Freq: Status: Active Protocol: Document 07/26/19 14:08 PJM (Rec: 07/26/19 14:36 [facility] [id number]) OT- Subjective Occupational Therapy Visit Type Type Initial Evaluation Visit Start Time 13:20 Visit Stop Time 14:08 Total Visit Minutes 48 Notes Pt's here this session . Occupational Therapy Visit Comments Patient Comments I always do too much at home. I vincent to take it easy. Patient/Caregiver Goals to get rid of recurrent infection and go home OT Pain Assessment Pain When Pain Assessed After Treatment Pain Present Pain Present Pain Reported FLACC Pain Scale Face No particular expression Legs Normal position; relaxed Activity Quiet, moves easily Cry No cry (awake or asleep) Consolability Reassurable with touch FLACC Total 1 M4 OT- IP ADL's Start: 07/26/19 14:15 Freq: Status: Active Protocol: Document 07/26/19 14:08 PJM (Rec: 07/26/19 14:36 [facility] [id number]) OT BHN-Dnex-[id number] General Evaluation Self-Feeding Ability Independent OT ADL-Grooming General Evaluation Grooming Ability Standby Assistance Areas Needing Assistance Retrieving/Set-up of Grooming Items,Face Washing Comments OT Grooming Comments standing at sink with FWW, needs mod verbal cues for body mechanics OT ADL-Oral Care General Eval Oral Care Ability Standby Assistance Areas of Assistance Brushing Teeth Devices Oral Care Devices Toothbrush Comments Oral Care Comments standing at sink with FWW, needs mod verbal cues for body mechanics OT ADL-Dressing Assistive Devices Dressing Assistive Devices Anesthesiologist Physician,Sock Aid Comments OT Dressing Comments Pt familiar with use of diffusion operator and sock aid for lower body dressing from previous lumbar surgeries. She states normally wears nightgown, underwear and slip on slippers . OT ADL-Toileting General Evaluation Toileting Ability Standby Assistance Areas Needing Assistance Perform Perineal Hygiene Devices Toileting Assistive Devices Raised Toilet Seat Comments OT Toileting Comments Began education re: toilet paper aids. OT ADL-Bathing Comments OT Bathing Comments to be assessed as mobility improves M5 OT- IP IADL's Start: 07/26/19 14:15 Freq: Status: Active Protocol: Document 07/26/19 14:08 PJM (Rec: 07/26/19 14:36 [facility] [id number]) OT-Instrumental Activities of Daily Living Deficits IADL Deficits Identified Deficits Home Safety Awareness Awareness of Need for Assistance at Home Good Awareness Ability to Problem Solve Emergency Able to Problem Solve Situations Medication Management Medication Management No Deficits Identified Money Management Money Management No Deficits Identified Meal Preparation Meal Preparation Caregiver Provides Assist Meal Preparation Comments to assist until pt able Show Design Supervisor Show Design Supervisor Caregiver Provides Assist Show Design Supervisor Comments to assist until pt able Driving Driving Caregiver Provides Assist Driving Comments pt does not drive M6 OT- IP Functional Cognition Start: 07/26/19 14:15 Freq: Status: Active Protocol: Document 07/26/19 14:08 PJM (Rec: 07/26/19 14:36 [facility] [id number]) Cognitive Factors Limiting Selfcare Function Cognitive Ability Level of Alertness Alert Patient Orientation Name,Age,Birthday,Month,Date, Year,Day of Week,Place, Situation Attention Span Ability Capable of Focused Attention, Capable of Sustained Attention Ability to Follow Commands Able to Follow One Step Commands Safety Awareness Decreased Ability to Apply Precautions,Underestimates Need for Assistance Cognitive Comments Cognitive Assessment Comments Pt needs mod + verbal cues for body mechanics during self care tasks to avoid bending and twisting. OT- Vision and Hearing OT- Hearing Assessment OT- Hearing Assessment WFL OT- Vision Assessment Visual Acuity WFL Vision Assessment Comments Pt denies any recent vision changes. M7 OT- IP Mobility and Balance Start: 07/26/19 14:15 Freq: Status: Active Protocol: Document 07/26/19 14:08 PJ (Rec: 07/26/19 14:36 [facility] [id number]) OT-Transfer Assessment Sit to and From Stand Sit to and from Stand Standby Assistance Transfers Transfer Ability Standby Assistance Technique Transfer Destination Chair,Toilet Transfer Technique Stand Step Pivot Devices Transfer Assistive Devices Front Wheeled Walker Comments Mobility Comments pt refuses gait belt OT- Gait Assessment Gait Gait Assistance Required: Standby Assistance Distance (Feet) 25 Assistive Devices Assistive Device Front Wheeled Walker OT- Balance Assessment Sitting Balance and Reactions Static Sitting Balance Ability Good Standing Balance and Reactions Static Standing Balance Ability Good Dynamic Standing Balance Ability Good Comments Other Balance Tests/Deviations/Treatment with FWW : M8 OT- IP Objective Assessments Start: 07/26/19 14:15 Freq: Status: Active Protocol: Document 07/26/19 14:08 PJ (Rec: 07/26/19 14:36 [facility] [id number]) OT Gross Range of Motion Upper Extremity Range of Motion Assessment Within Functional Limits OT Strength Upper Extremity Strength Assessment Within Functional Limits OT- Coordination Assessment Upper Extremity Finger to Nose Test Within Functional Limits OT-Muscle Tone Assessment Muscle Tone WNL Yes OT Sensation Assessment Comments Summary Comments WNL BUE per pt Edema Edema Absent M9 OT- IP Assessment and Plan Start: 07/26/19 14:15 Freq: Status: Active Protocol: Document 07/26/19 14:08 [facility] (Rec: 07/26/19 14:36 [facility] [id number]) OT Summary Assessment and Plan Potential Rehabilitation Potential Good Analytic Complexity at Evaluation Low Summary OT Impairments Pain,Functional Mobility, Dressing,Toileting,Bathing, Shower Transfers Assessment Summary Low complexity OT assessment completed on this 58 yr old woman admitted with recurrent lumbar abscess after 2 previous lumbar surgeries in 2014, 2016. Pt s/p I&D of abscess on 07/25 with second washout planned for 07/28/19. Pt presents with mild performance deficits in functional mobility/transfers, decreased independence in lower body dressing, cyndi care after BM, and showering. Pt familiar with adapted techniques from previous surgeries but needs mod verbal cues to improve body mechanics during functional tasks today. Plan 1-2 additional OT visits to increase indep/safety and technique during self care tasks. Anticipate pt will d/c home with supportive when medically stable and clears P.T. Goals Grooming Goal Independent Dressing Goal Independent,Long Handled Shoe Horn,Anesthesiologist Physician,Sock Aid Toileting Goal Independent,Toilet Paper Aid Bathing Goal Standby Assistance,Grab Bars, Hand Held Shower Sprayer,Long Handled Sponge or [place] Toilet Transfer Goal Independent,ADA High Toilet Shower Transfer Goal Standby Assistance,Moderate Assistance,Shower Chair,Grab Bars Patient/Caregiver Education Goal Demonstrate Post-Op Precautions,Demonstrate Energy Conservation and Pacing Days to Meet Goals 2 Frequency of Treatment Frequency Of Treatment Once a Day Treatment Plan OT Treatment Plan ADL Training,Functional Mobility,Patient/Family Education,Discharge Planning Discharge Recommendations OT Discharge Recommendations Home with Assistance
--- NOTE | 2019-07-26 15:00 | PT.IIE ---
Current Diagnoses Infection following a procedure, other surgical site, initial encounter (07/22/19) Surgery Performed Operation Date: 07/25/19 18:00 Actual Procedures p Incision and Drainage lumbar wound with application of wound vac - Luca Doty MD Operation Date: 07/28/19 12:15 <No data on this case meets the specified criteria> Surgical History (Last Reviewed 07/26/19 @ 11:31 by Hailey Kaplan MD) History of 2 sections (Acute) History of arthroscopy of left shoulder (Acute) History of kidney surgery (Acute) Hx of dilation and curettage (Acute) Hx of laminectomy (Acute ~03/2016) Hx of tonsillectomy (Acute) S/P lumbar fusion (Acute ~05/2015) S/P lumbar fusion (Acute ~12/2016) Medical History (Last Reviewed 07/26/19 @ 11:30 by Hailey Kaplan MD) Anxiety (Acute) Asthma (Acute) Chronic pain (Acute) CVA (cerebral vascular accident) (Acute) Depression (Acute) Diabetes (Acute) Diverticulosis (Acute) Eczema (Acute) Edema (Acute) Fibromyalgia (Acute) Former smoker (Acute) Frequent UTI (Acute) Heart murmur (Acute) [place] (hard of hearing) (Acute) HTN (hypertension) (Acute) Hyperlipidemia (Acute) Hypothyroid (Acute) Palpitations (Acute) Sinus drainage (Acute) Sleep apnea (Acute) SOB (shortness of breath) (Acute) Physical Therapy Inpatient Evaluation/Re-Eval M1 PT/OT-IP Prior Functional Status Start: 07/23/19 11:19 Freq: NEEDED Status: Active Protocol: Document 07/26/19 15:00 AB (Rec: 07/26/19 15:52 AB [id number]) Medical Review Prior Functional Status Medical History Reviewed Yes Diet/Fluid Consistency Regular Communication able to make needs known Mobility and Gait Pt stated that she is modified independent with ambulation using SPC. 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 Pt has been assisting mother in law with bathing. Pt/ share cooking.He does grocery shopping as pt does not drive. works but has flexible hours. Pt manages her own medications at home. Prior Functional Level (Other details) per OT note: They plan to hire bath aide and caregiver for pt's mother in law during pt's recovery. Social History Household Members spouse,family Living Arrangements Mobile home Number of Floors (Floors) One Floor Number of Stairs To Enter/Railing? 12 steps with bilateral rails Home Environment High Toilet,Walk in Shower Home Equipment Front Wheel Walker,Straight Cane,Shower Seat with Backrest ,Hand Held Shower,Cnc Lathe Programmer,Sock Aid,Grab Bars Near Toilet, Grab Bars In Shower Employment Status Unemployed M2 PT-IP Current Condition Start: 07/23/19 11:19 Freq: NEEDED Status: Active Protocol: Document 07/26/19 15:00 AB (Rec: 07/26/19 15:52 AB [id number]) Physical Therapy Current Condition Current Condition Evaluation Date 07/26/19 Treatment Diagnosis s/p I&D lumbar abscess; difficulty in walking Onset Date 07/22/19 Precautions Lumbar Precautions Log Roll,No Twisting,Limit Bending,Lifting Restriction of 10 lbs,Gait Belt above Incisional Area Other Precautions wound vac M3 PT-IP Subjective Start: 07/23/19 11:19 Freq: NEEDED Status: Active Protocol: Document 07/26/19 15:00 AB (Rec: 07/26/19 15:52 AB [id number]) Subjective Physical Therapy Visit Type Type Initial Evaluation Visit Start Time 15:00 Visit Stop Time 15:31 Total Visit Minutes 31 Notes pt was seen for PT eval for LBP and was d/c'd due to pt being at [facility]. pt underwent I&D of lumbar abscess 07/25/19 and received new PT eval order. Number of MANAGER RESTAURANT Visits 0 Physical Therapy Visit Comments Patient Comments pt agreed to do PT Therapy Pain Assessment Pain When Pain Assessed At Rest Pain Present Pain Present Pain Reported Location Lower Back Scale Used pain scale not stated but stated high pain Pain Management Techniques Re-positioning,Timing of Activity with Medications M4 PT-IP Mobility and Gait Start: 07/23/19 11:19 Freq: NEEDED Status: Active Protocol: Document 07/26/19 15:00 AB (Rec: 07/26/19 15:52 AB [id number]) PT-Bed Mobility Assessment Supine to Sit Supine to Sit Standby Assistance,Head of Bed Elevated,Bedrails Sit to Supine Sit to Supine Standby Assistance,Head of Bed Elevated,Bedrails Scooting Scooting to Edge of Bed Standby Assistance PT-Transfer Assessment Sit to and From Stand Sit to and from Stand Standby Assistance Equipment Transfer Assistive Device Gait Belt,Front Wheeled Walker Orthotic/Prosthetic Devices or Brace: No Transfers Transfer Destination Toilet Transfer Technique pt ambulated using FWW Transfer Ability Level of Assist Standby Assistance,1 Person Assistance,Use of Upper Extremities Comments Mobility Comments pt agreeable to do PT. pt completed bed mobility supine to sit with HOB elevated and pt used bed rail. pt directs her own care. pt completed sit to stand using foot stool handle to push from per pt's request. pt stated that the bed is too high and needs handle to push to get up. pt ambulated in room using FWW SBA. requested to use the toilet and ambulated to the toilet SBA using FWW. pt switched to a SPC to take a few steps to get into the toilet SBA. pt completed sit to stand from the toilet using grab bar SBA. ambulated out of the toilet using FWW SBA to the sink and was able to maintain standing using counter for support SBA while completing handwashing and brushing her teeth. pt then ambulated back towards her bed using FWW SBA. completed bed mobility sit to supine with HOB elevated and pt used bed rail for support SBA. pt has a wound vac tube attached to lumbar area and pt prefers to lay on her R side. pt able to position self SBA. call light and table placed within reach. left pt with NAC in room. Gait Assessment Gait Gait Assistance Required: Standby Assistance Distance (Feet) 125 Able to Maintain Weight Bearing Status Yes During Gait Assistive Devices Assistive Device Gait Belt,Front Wheeled Walker Orthotic/Prosthetic Devices or Brace: No Factors Limiting Gait Function Factors Limiting Gait Function Decreased Activity Tolerance, Limited Range of Motion,Pain, Poor Safety Awareness PT-Balance Assessment Sitting Balance and Reactions Static Sitting Balance Ability Good Dynamic Sitting Balance Ability Good Standing Balance and Reactions Static Standing Balance Ability Fair Dynamic Standing Balance Ability Fair Device Used FWW M5 PT-IP Objective Assessments Start: 07/23/19 11:19 Freq: NEEDED Status: Active Protocol: Document 07/26/19 15:00 AB (Rec: 07/26/19 15:52 [id number]) Orientation Orientation/Cognition Level of Alertness Alert Orientation Name,Age,Birthday,Place, Situation Language Function Ability No Deficits Noted Safety Awareness Decreased Safety Awareness Gross Range of Motion Lower Extremity ROM Assessment Within Functional Limits Strength Lower Extremity Strength Assessment Bilaterally Impaired Hip 4-/5 Knee 4-/5 Coordination Assessment Gross Coordination Gross Coordination WNL Sensation Assessment Sensation Gross Sensation WNL Muscle Tone Muscle Tone WNL Yes M6 PT-IP Treatment Start: 07/23/19 11:19 Freq: NEEDED Status: Active Protocol: Document 07/26/19 15:00 AB (Rec: 07/26/19 15:52 AB [id number]) Physical Therapy Treatment Education Education Provided Precautions,Post-Op Packet, Safety M7 PT-IP Assessment and Plan Start: 07/23/19 11:19 Freq: NEEDED Status: Active Protocol: Document 07/26/19 15:00 AB (Rec: 07/26/19 15:52 [id number]) PT Summary Assessment and Plan Potential Rehabilitation Potential Good Status of Condition at Evaluation Stable Summary Impairments Pain,ROM,Strength,Balance, Cognition,Bed Mobility, Transfers,Gait,Activity Tolerance Assessment Summary pt requiring SBA with mobility . pt directs her own care and used bed rail and adjusted bed to assist with bed mobility. will continue to assess progress. Goals Bed Mobility Goal Independent Transfer Goal Independent,Cane,Front Wheeled Walker Gait Goal Independent,Cane,Front Wheel Walker Gait Distance 200 Other Goals up/down 12 steps with bilateral rails SBA Days to Meet Goals 10 Frequency of Treatment Frequency Of Treatment Once a Day Treatment Plan Physical Therapy Treatment Plan Bed Mobility Training,Transfer Training,Gait Training, Therapeutic Exercise,Balance Retraining,Post Op Education, Discharge Planning,Hot or Cold Pack,Neuromuscular Re-ed, Coordination Retraining,Manual Therapy Other Recommendations and Next Treatment ambulation Focus Recommendations To Nursing Amount of Assist Needed 1 Person Assist Discharge Recommendations PT Discharge Recommendations Home with Assistance
[2019-07-26 15:25] VITALS: BP 137/46; PULSE 67; RESP 17; TEMP 36.3; O2SAT 98
[2019-07-26] MEDS: HYDROMORPHONE 0.5 MG INJ 0.2 MG IV (16:30)
[2019-07-26] MEDS: CEFTRIAXONE 2 GM/50 ML FROZ.PIGGY IV (17:07)
[2019-07-26 17:55] VITALS: BP 134/94; PULSE 75; RESP 17; TEMP 36.5; O2SAT 98
[2019-07-26] MEDS: ATORVASTATIN 20 MG TABLET PO (20:16)
[2019-07-26] MEDS: ASPIRIN EC 81 MG TABLET PO (20:16)
[2019-07-26] MEDS: SENNOSIDES 8.6 MG TABLET 17.2 MG PO (20:17)
[2019-07-26] MEDS: LORazepam 2 MG/ML INJ 0.5 MG IV (20:51)
[2019-07-27] VITALS (7 sets, daily range): BP systolic 133–154; BP diastolic 50–93; PULSE 60–76; RESP 16–18; TEMP 36.2–37; O2SAT 94–99
[2019-07-27] MEDS: OXYCODONE IR 5 MG TABLET PO ×5 (01:05→22:00)
[2019-07-27] MEDS: hydrOXYzine pamoate 25 MG CAPSULE PO ×2 (01:06→18:06)
[2019-07-27] MEDS: FLUCONAZOLE 150 MG TABLET PO ×2 (01:10→10:38)
[2019-07-27] MEDS: CEFTRIAXONE 2 GM/50 ML FROZ.PIGGY IV ×2 (04:09→18:06)
--- NOTE | 2019-07-27 04:15 | PC.NURSE ---
Pt VSS, calm cooperative. Pt pain level 6-7/10, 5mg Oxycodone Q4. Pt ambulates independently to bedside commode. Wound vac on, clean/dry and intact site on lower back. Pt refuses to wear SCD's and has been educated about their use. Pt has been encouraged to use IS and cough and deep breathing.
[2019-07-27] MEDS: VANCOMYCIN 1,250 MG in SODIUM CHLORIDE 0.9% 250 ML IV ×3 (05:55→21:45)
[2019-07-27] MEDS: SODIUM CHLORIDE 0.9% 1,000 ML 30 ML IV ×2 (07:00→09:14)
--- NOTE | 2019-07-27 08:18 | PM.PNPO.1 ---
Subjective Subjective Date Patient Seen: 07/27/19 Time Patient Seen: 08:18 Interval history: Pain is much better today. Exam Vital Signs (past 8 hours): - 07/27/19 00:42 07/27/19 03:00 Temperature 98.6 F 98.3 F Pulse Rate 76 65 Respiratory Rate 16 18 Blood Pressure 138/56 L 146/57 H Pulse Oximetry 99 95 Oxygen Delivery Method Room Air Oxygen Flow Rate 0 Const Orientation: alert and oriented x3 Back/Spine/Pelvis Other: Wound VAC clean and intact. 5/5 motor both lower extremities Objective Labs Result Diagrams: 07/26/19 05:15 07/26/19 05:15 Assessment & Plan Post-op Postoperative Procedures: Procedures Operation Date: 07/25/19 18:00 Actual Procedures Side Surgeon p Incision and Drainage lumbar wound with application of wound vac Luca Doty MD Operation Date: 07/28/19 12:15 <No data on this case meets the specified criteria> She is doing well. Continue to wait on growth on microbiology. Appreciate medicine's help with her glucose control as well as antibiotic management. Plan to return to the operating room tomorrow for repeat washout. Quality VTE Deep Vein Thrombosis/Pulmonary Embolism Present on Admission: No
[2019-07-27] MEDS: KETOROLAC 30 MG/ML VIAL IV (08:44)
[2019-07-27] MEDS: NICOTINE 14 PATCH 14 MG TOP (08:44)
[2019-07-27] MEDS: SERTRALINE 50 MG TABLET 150 MG PO (08:44)
[2019-07-27] MEDS: LISINOPRIL 20 MG TABLET PO (08:44)
[2019-07-27] MEDS: DOCUSATE 100 MG CAPSULE PO ×2 (08:44→21:45)
[2019-07-27] MEDS: GABAPENTIN 600 MG TABLET PO ×3 (08:44→21:44)
[2019-07-27] MEDS: INSULIN ASPART 100 UNIT/ML 10ML VIAL 60 UNIT SUBCUT ×3 (08:46→18:08)
[2019-07-27] MEDS: INSULIN GLARGINE 100 UNIT/ML 10ML VIAL SUBCUT ×2 (08:51→22:27)
[2019-07-27] MEDS: TRIAMTERENE/HCTZ 37.5/25 TABLET 0.5 CAP PO (08:55)
[2019-07-27] MEDS: HYDROMORPHONE 0.5 MG INJ 0.2 MG IV (09:11)
--- NOTE | 2019-07-27 11:07 | PC.NURSE ---
Olamide stated that she had a bowel movement yesterday (07/26/19)
--- NOTE | 2019-07-27 11:07 | PC.NURSE ---
AM NOTE - pt is up to chair for breakfast, wound vac s/serosang in tubing and cannister, dsg intact w/o leakage, states back discomfort 6-7 on scale 0/10, given iv toradol, pt req iv dilaudid and give 0.2mg, discussed constipation and pt states had bm yesterday.
--- NOTE | 2019-07-27 11:50 | PT.IPTN ---
Current Diagnoses Infection following a procedure, other surgical site, initial encounter (07/22/19) Surgery Performed Operation Date: 07/25/19 18:00 Actual Procedures p Incision and Drainage lumbar wound with application of wound vac - Luca Doty MD Operation Date: 07/28/19 12:15 <No data on this case meets the specified criteria> Physical Therapy Treatment Note M2 PT-IP Current Condition Start: 07/23/19 11:19 Freq: NEEDED Status: Active Protocol: Document 07/26/19 15:00 AB (Rec: 07/26/19 15:52 AB [id number]) Physical Therapy Current Condition Current Condition Evaluation Date 07/26/19 Treatment Diagnosis s/p I&D lumbar abscess; difficulty in walking Onset Date 07/22/19 Precautions Lumbar Precautions Log Roll,No Twisting,Limit Bending,Lifting Restriction of 10 lbs,Gait Belt above Incisional Area Other Precautions wound vac M3 PT-IP Subjective Start: 07/23/19 11:19 Freq: NEEDED Status: Active Protocol: Document 07/27/19 11:50 AB (Rec: 07/27/19 12:21 AB [id number]) Subjective Physical Therapy Visit Type Type Treatment Note Visit Start Time 11:50 Visit Stop Time 12:08 Total Visit Minutes 18 Number of ASSISTANT BRAND MANAGER Visits 0 Physical Therapy Visit Comments Patient Comments pt agreeable to do PT Therapy Pain Assessment Pain When Pain Assessed At Rest Pain Present Pain Present Pain Reported Location Lower Back Scale Used pain scale not stated M4 PT-IP Mobility and Gait Start: 07/23/19 11:19 Freq: NEEDED Status: Active Protocol: Document 07/27/19 11:50 AB (Rec: 07/27/19 12:21 AB [id number]) PT-Transfer Assessment Sit to and From Stand Sit to and from Stand Standby Assistance Gait Assessment Gait Gait Assistance Required: Standby Assistance Distance (Feet) 125 Able to Maintain Weight Bearing Status Yes During Gait Assistive Devices Assistive Device Gait Belt,Straight Cane Orthotic/Prosthetic Devices or Brace: No Factors Limiting Gait Function Factors Limiting Gait Function Limited Range of Motion,Pain, Poor Balance Comments Gait Comments pt ambulated in room using SPC ~ 125 ft SBA with pt occasionally holding on to bed and counter for support. M5 PT-IP Objective Assessments Start: 07/23/19 11:19 Freq: NEEDED Status: Active Protocol: Document 07/26/19 15:00 AB (Rec: 07/26/19 15:52 AB [id number]) Orientation Orientation/Cognition Level of Alertness Alert Orientation Name,Age,Birthday,Place, Situation Language Function Ability No Deficits Noted Safety Awareness Decreased Safety Awareness Gross Range of Motion Lower Extremity ROM Assessment Within Functional Limits Strength Lower Extremity Strength Assessment Bilaterally Impaired Hip 4-/5 Knee 4-/5 Coordination Assessment Gross Coordination Gross Coordination WNL Sensation Assessment Sensation Gross Sensation WNL Muscle Tone Muscle Tone WNL Yes M6 PT-IP Treatment Start: 07/23/19 11:19 Freq: NEEDED Status: Active Protocol: Document 07/26/19 15:00 AB (Rec: 07/26/19 15:52 AB [id number]) Physical Therapy Treatment Education Education Provided Precautions,Post-Op Packet, Safety M7 PT-IP Assessment and Plan Start: 07/23/19 11:19 Freq: NEEDED Status: Active Protocol: Document 07/27/19 11:50 AB (Rec: 07/27/19 12:21 AB [id number]) PT Summary Assessment and Plan Potential Rehabilitation Potential Good Summary Impairments Pain,ROM,Strength,Balance,Bed Mobility,Transfers,Gait, Activity Tolerance Progress Towards Goals Progressing Toward Goals Assessment Summary pt requiring SBA with ambulation using SPC. per doctor's note: plan is for pt to have another I&D tomorrow. PT will continue to asses mobility for safe d/c. Goals Bed Mobility Goal Independent Transfer Goal Independent,Cane,Front Wheeled Walker Gait Goal Independent,Cane,Front Wheel Walker Gait Distance 200 Other Goals up/down 12 steps with bilateral rails SBA Days to Meet Goals 10 Frequency of Treatment Frequency Of Treatment Once a Day Treatment Plan Physical Therapy Treatment Plan Bed Mobility Training,Transfer Training,Gait Training, Therapeutic Exercise,Balance Retraining,Post Op Education, Discharge Planning,Hot or Cold Pack,Neuromuscular Re-ed, Coordination Retraining,Manual Therapy Other Recommendations and Next Treatment ambulation Focus Recommendations To Nursing Amount of Assist Needed 1 Person Assist Discharge Recommendations PT Discharge Recommendations Home with Assistance
--- NOTE | 2019-07-27 11:54 | OT.IP.TRT ---
Current Diagnoses Infection following a procedure, other surgical site, initial encounter (07/22/19) Surgery Performed Operation Date: 07/25/19 18:00 Actual Procedures p Incision and Drainage lumbar wound with application of wound vac - Luca Doty MD Operation Date: 07/28/19 12:15 <No data on this case meets the specified criteria> Occupational Therapy Treatment Note M2 OT-IP Current Condition Start: 07/26/19 14:15 Freq: Status: Active Protocol: Document 07/26/19 14:08 PJM (Rec: 07/26/19 14:36 PJM [id number]) Occupational Therapy Current Condition Current Condition Evaluation Date 07/26/19 Treatment Diagnosis decreased self care and functional mobility s/p I&D of lumbar abscess Diagnosis Onset Date 07/22/19 Post Operative Precautions Lumbar Precautions Log Roll,No Twisting,Limit Bending Other Precautions Need to clarify lifting restriction with MD/ADARSH M3 OT- IP Subjective and Pain Start: 07/26/19 14:15 Freq: Status: Active Protocol: Document 07/27/19 11:54 PJM (Rec: 07/27/19 14:48 PJM [id number]) OT- Subjective Occupational Therapy Visit Type Type Treatment Note Visit Start Time 11:15 Visit Stop Time 11:54 Total Visit Minutes 39 Occupational Therapy Visit Comments Patient Comments I would really like to get in the shower. The morphine they gave me makes me really sleepy. Patient/Caregiver Goals to get rid of infection and go home OT Pain Assessment Pain When Pain Assessed After Treatment Pain Present Pain Present Pain Reported Location Lower Back Intensity 6 Scale Used Numeric (1 - 10) Description Aching,Acute Management Techniques Distraction,Re-positioning, Timing of Activity with Medications M4 OT- IP ADL's Start: 07/26/19 14:15 Freq: Status: Active Protocol: Document 07/27/19 11:54 PJM (Rec: 07/27/19 14:48 PJM [id number]) OT ADL-Dressing General Eval Upper Body Dressing Ability Standby Assistance Comments OT Dressing Comments SBA with gown change except assist with IV line. Pt states she has amphibian crewmember and sock aid and is familiar with their use for lower body dressing from 2 previous back surgeries. OT ADL-Toileting General Evaluation Toileting Ability Standby Assistance Areas Needing Assistance Perform Perineal Hygiene Comments OT Toileting Comments after urination; provided information/resource sheet re: toilet paper aids for cyndi care after bowel movement OT ADL-Bathing Bathing Type Bathing Type Shower General Evaluation Bathing Ability Minimal Assistance Areas Needing Assistance Retrieving/Setting Up Items Devices Bathing Equipment Long Handled Sponge or [place], Hand Held Shower Sprayer, Shower Chair with Arms,Grab Bars Comments OT Bathing Comments Pt completed shower with min assist to wash back to avoid getting bandage wet. She has all necessary adaptive equipt at home. Min verbal cues provided for body mechanics. M6 OT- IP Functional Cognition Start: 07/26/19 14:15 Freq: Status: Active Protocol: Document 07/27/19 11:54 PJM (Rec: 07/27/19 14:48 PJ [id number]) Cognitive Factors Limiting Selfcare Function Cognitive Ability Level of Alertness Alert Patient Orientation Name,Age,Birthday,Month,Date, Year,Day of Week,Place, Situation Attention Span Ability Capable of Focused Attention, Capable of Sustained Attention Ability to Follow Commands Able to Follow One Step Commands,Able to Follow Multi- Step Commands Memory Description No Deficits Noted Safety Awareness Decreased Ability to Apply Precautions Problem Solving Ability No deficits Noted Cognitive Comments Cognitive Assessment Comments Pt needs min cues for body mechanics during shower. Pt more alert today with faster rate of speech; reports morphine makes her sleepy. M7 OT- IP Mobility and Balance Start: 07/26/19 14:15 Freq: Status: Active Protocol: Document 07/27/19 11:54 PJM (Rec: 07/27/19 14:48 PJ [id number]) OT- Bed Mobility Assessment Rolling Type of Rolling Roll to Right Level of Assistance Standby Assistance,Bedrails Supine to Sit Supine to Sit Assist Standby Assistance,Head of Bed Elevated Scooting Scooting to Edge of Bed Standby Assistance OT-Transfer Assessment Sit to and From Stand Sit to and from Stand Standby Assistance Transfers Transfer Ability Standby Assistance Technique Transfer Destination Bed,Chair,Shower Stall Transfer Technique Stand Step Pivot Devices Transfer Assistive Devices Straight Cane Comments Mobility Comments good balance noted throughout session OT- Gait Assessment Gait Gait Assistance Required: Standby Assistance Distance (Feet) 20 Assistive Devices Assistive Device Straight Cane OT- Balance Assessment Sitting Balance and Reactions Static Sitting Balance Ability Good Dynamic Sitting Balance Ability Good Standing Balance and Reactions Static Standing Balance Ability Good Dynamic Standing Balance Ability Good Comments Other Balance Tests/Deviations/Treatment during standing portions of : shower M9 OT- IP Assessment and Plan Start: 07/26/19 14:15 Freq: Status: Active Protocol: Document 07/27/19 11:54 PJZe (Rec: 07/27/19 14:48 PJM [id number]) OT Summary Assessment and Plan Potential Rehabilitation Potential Good Summary OT Impairments Toileting Assessment Summary Pt making good progress with mobility and independence in self care skills. Most OT goals achieved for this admission. Plan one additional visit for further education re: toilet paper aids at pt's request. Pt to have another I& D procedure tomorrow per chart notes. Goals Grooming Goal Independent Dressing Goal Independent,Long Handled Shoe Horn,Social Worker Assistant,Sock Aid Toileting Goal Independent,Toilet Paper Aid Bathing Goal Standby Assistance,Grab Bars, Hand Held Shower Sprayer,Long Handled Sponge or [place] Toilet Transfer Goal Independent,ADA High Toilet Shower Transfer Goal Standby Assistance,Minimal Assistance,Shower Chair,Grab Bars Patient/Caregiver Education Goal Demonstrate Post-Op Precautions,Demonstrate Energy Conservation and Pacing Days to Meet Goals 1 Frequency of Treatment Frequency Of Treatment Once a Day Treatment Plan OT Treatment Plan ADL Training,Functional Mobility,Patient/Family Education,Discharge Planning Discharge Recommendations OT Discharge Recommendations Home with Assistance Home Equipment Needs toilet paper aid
[2019-07-27] MEDS: INSULIN ASPART 100 UNIT/ML 10ML VIAL SUBCUT ×3 (12:06→22:27)
[2019-07-27] MEDS: VANCOMYCIN TROUGH 1 REQUEST MISC (13:59)
[2019-07-27 14:12] LABS: Vancomycin Trough 13.4 ug/mL (10-20)
--- NOTE | 2019-07-27 16:13 | PM.PN.1 ---
Subjective Subjective Date Patient Seen: 07/27/19 Interval history: Patient reports her pain control is improved. Blood sugars still elevated better than her baseline. She is still getting Lantus 100 units twice daily plus 60 units of aspirate before meals. She is requiring additional sliding scale of insulin. She does not report any shortness of breath. No nausea. Patient is scheduled for repeat I and D tomorrow Exam Vital Signs (past 8 hours): - 07/27/19 13:30 Temperature 97.4 F L Pulse Rate 64 Respiratory Rate 16 Blood Pressure 137/86 Pulse Oximetry 98 Oxygen Delivery Method Room Air Oxygen Flow Rate 0 Narrative Exam Narrative: Pleasant female in no acute distress Lungs: Clear to auscultation Cardiac exam: Regular rate rhythm normal S1-S2 with a 2/6 systolic ejection murmur Abdomen: Obese soft and nontender Back: Dressing in place wound VAC in place Extremities: No edema Objective Labs Result Diagrams: 07/26/19 05:15 07/26/19 05:15 Labs: Laboratory Results - last 24 hr 07/27/19 13:30 Vancomycin Trough 13.4 Assessment & Plan Assessment & Plan narrative: Impression 1. 58-year-old female with a lumbar abscess status post I&D and wound VAC placement. She was growing Gram-positive rods and g positive cocci in the culture results. Final culture results of this point are negative. The patient will remain on IV ceftriaxone and IV vancomycin. She is on Diflucan as well. Patient is scheduled for repeat I&D tomorrow. 2. Type 2 diabetes, suboptimal control, continue her b.i.d. dosing of Lantus plus her scheduled pre meal insulin. She is also on a high dose sliding scale which will be continued. 3. Hypertension, continue usual medication 4. Hyperlipidemia 5. Morbid obesity. 6. Depression, continue usual medication Quality VTE Deep Vein Thrombosis/Pulmonary Embolism Present on Admission: No
[2019-07-27 16:44] LABS: Hemoglobin A1C% w Est Avg Glu 11.6 % (4.0-6.0)
[2019-07-27 18:33] LABS: Procalcitonin 0.14 ng/mL (<0.5)
[2019-07-27] MEDS: ACETAMINOPHEN 325 MG TABLET 975 MG PO (19:29)
[2019-07-27] MEDS: diphenhydrAMINE 25 MG TABLET PO (19:30)
[2019-07-27] MEDS: SENNOSIDES 8.6 MG TABLET 17.2 MG PO (21:44)
[2019-07-27] MEDS: ASPIRIN EC 81 MG TABLET PO (21:44)
[2019-07-27] MEDS: ATORVASTATIN 20 MG TABLET PO (21:44)
[2019-07-27] MEDS: LORazepam 2 MG/ML INJ 0.5 MG IV (22:00)
[2019-07-28] VITALS (14 sets, daily range): BP systolic 98–154; BP diastolic 42–84; PULSE 58–98; RESP 14–20; TEMP 35.9–37.1; O2SAT 95–100
[2019-07-28] MEDS: HYDROMORPHONE 0.5 MG INJ 0.2 MG IV ×3 (00:07→18:48)
[2019-07-28] MEDS: hydrOXYzine pamoate 25 MG CAPSULE PO ×3 (00:08→16:35)
--- NOTE | 2019-07-28 01:13 | PC.NURSE ---
Addendum entered by Patricia York R.N. 07/28/19 06:41: Slept most of night. This morning states pain is 8/10 so medicated with Dilaudid + Vistaril. Wound vac leaking again so reinforced once more by LARON Dodd and pressure fluctuating 75-125mmHg. Patient now complains of nausea so medicated with Zofran. Original Note: Patient is alert and oriented but can be abrupt in conversation and rude to staff. Breath sounds CTA with RA sat of 97%. HRR. Denies nausea. BT present and is passing flatus. Denies dysuria, frequency or urgency. Able to move self in bed but requests SBA when getting up to BSC. Wound vac with leak so reinforced and now back to 125mmHg; site around wound vac appears bruised. Refused SCD's. States pain is currently 7/10 and exacerbated by movement; medicated with Dilaudid + Vistaril and is currently asleep. Fall risk score is moderate but patient calling for assistance appropriately so alarm has not been used; patient verbalizes agreement to call for assistance.
[2019-07-28] MEDS: CEFTRIAXONE 2 GM/50 ML FROZ.PIGGY IV ×2 (04:01→16:37)
[2019-07-28] MEDS: VANCOMYCIN 1,250 MG in SODIUM CHLORIDE 0.9% 250 ML IV (06:20)
[2019-07-28] MEDS: ONDANSETRON 4 MG/2 ML INJ IV (06:26)
[2019-07-28 06:52] LABS: Add Manual Diff / Slide Review NO; Basophils Absolute Auto 100 /uL (0-100); Basophils Percent Auto 0.7 % (0-2); Eosinophils Absolute Auto 300 /uL (0-450); Eosinophils Percent Auto 2.9 % (2-4); Hematocrit 32.6 % (36-46); Lymphocytes Absolute Auto 2500 /uL (1100-4500); Mean Corpuscular HGB Conc 33.8 % (30-36); Mean Corpuscular Hemoglobin 30.8 PG (26-34); Mean Corpuscular Volume 91.1 fL (80-100); Monocytes Absolute Auto 700 /uL (0-900); Monocytes Percent Auto 7.3 % (3-14); Neutrophils Absolute Auto 6000 /uL (1500-7000); Neutrophils Percent Auto 63.1 % (50-75); Platelet Count 460 X10^3/uL (150-400); Red Blood Cell Count 3.58 X10^6/uL (4.0-5.2); Red Cell Distribution Width 13.4 % (11.6-14.8); White Blood Cell Count 9.6 X10^3/uL (4.5-11.0)
[2019-07-28 07:00] LABS: Blood Urea Nitrogen 21 mg/dL (7-17); Calcium 9.1 mg/dL (8.4-10.2); Carbon Dioxide 27 mmol/L (22-32); Chloride 108 mmol/L (98-107); Estimated Glomerular Filt Rate > 60.0 mL/min (>60); Glucose 133 mg/dL (70-100); HEMOLYSIS < 15 (0-50); Potassium 4.5 mmol/L (3.4-5.1); Sodium 141 mmol/L (137-145)
--- NOTE | 2019-07-28 07:42 | PM.PNPO.1 ---
Subjective Subjective Date Patient Seen: 07/28/19 Time Patient Seen: 07:42 Interval history: She is doing well. They did have some problems with her wound VAC ceiling last night but this was fixed. Exam Vital Signs (past 8 hours): - 07/28/19 03:00 Temperature 96.7 F L Pulse Rate 60 Respiratory Rate 16 Blood Pressure 154/58 H Pulse Oximetry 98 Oxygen Delivery Method Room Air Oxygen Flow Rate 0 Const Orientation: alert and oriented x3 Back/Spine/Pelvis Other: Dressing reinforced but intact. 5/5 motor both lower extremities Objective Labs Result Diagrams: 07/28/19 06:15 07/28/19 06:15 Labs: Laboratory Results - last 24 hr 07/26/19 07/27/19 07/27/19 05:15 13:30 17:54 WBC RBC Hgb Hct MCV MCH MCHC RDW Plt Count Neut % (Auto) Lymph % (Auto) [place] % (Auto) Eos % (Auto) Baso % (Auto) Neut # (Auto) Lymph # (Auto) [place] # (Auto) Eos # (Auto) Baso # (Auto) Sodium Potassium Chloride Carbon Dioxide BUN Creatinine Estimated GFR BUN/Creatinine Ratio Glucose Hemoglobin A1c 11.6 H Calcium Procalcitonin 0.14 Vancomycin Trough 13.4 07/28/19 07/28/19 06:15 06:15 WBC 9.6 RBC 3.58 L Hgb 11.0 L Hct 32.6 L MCV 91.1 MCH 30.8 MCHC 33.8 RDW 13.4 Plt Count 460 H Neut % (Auto) 63.1 Lymph % (Auto) 26.0 [place] % (Auto) 7.3 Eos % (Auto) 2.9 Baso % (Auto) 0.7 Neut # (Auto) 6000 Lymph # (Auto) 2500 [place] # (Auto) 700 Eos # (Auto) 300 Baso # (Auto) 100 Sodium 141 Potassium 4.5 Chloride 108 H Carbon Dioxide 27 BUN 21 H Creatinine 0.60 Estimated GFR > 60.0 BUN/Creatinine Ratio 35.0 H Glucose 133 H D Hemoglobin A1c Calcium 9.1 Procalcitonin Vancomycin Trough Assessment & Plan Post-op Postoperative Procedures: Procedures Operation Date: 07/25/19 18:00 Actual Procedures Side Surgeon p Incision and Drainage lumbar wound with application of wound vac Luca Doty MD Operation Date: 07/28/19 14:45 <No data on this case meets the specified criteria> She is still not having any growth on her cultures this morning. We are treating her empirically. Plan to return to the operating room again today for washout and closure over a Hemovac drain. Risks and benefits of surgery were again discussed including but not limited to medical risks with heart attack, stroke, , DVT, PE, and ongoing infection, bleeding, failure to eradicate infection, need for further surgery. Surgery is planned for around 1:00 p.m. she is NPO after 8:00 a.m., just clears right now. Consents were signed. Quality VTE Deep Vein Thrombosis/Pulmonary Embolism Present on Admission: No
[2019-07-28] MEDS: FLUCONAZOLE 150 MG TABLET PO (07:54)
[2019-07-28] MEDS: TRIAMTERENE/HCTZ 37.5/25 TABLET 0.5 CAP PO (07:54)
[2019-07-28] MEDS: DOCUSATE 100 MG CAPSULE PO ×2 (07:57→20:18)
[2019-07-28] MEDS: LISINOPRIL 20 MG TABLET PO (07:57)
[2019-07-28] MEDS: GABAPENTIN 600 MG TABLET PO ×3 (07:57→20:18)
[2019-07-28] MEDS: SERTRALINE 50 MG TABLET 150 MG PO (07:58)
[2019-07-28] MEDS: OXYCODONE IR 5 MG TABLET PO ×4 (08:03→23:47)
[2019-07-28] MEDS: INSULIN ASPART 100 UNIT/ML 10ML VIAL SUBCUT ×3 (08:28→20:29)
[2019-07-28] MEDS: INSULIN GLARGINE 100 UNIT/ML 10ML VIAL SUBCUT ×2 (08:30→20:28)
[2019-07-28] MEDS: NICOTINE 14 PATCH 14 MG TOP (08:40)
--- NOTE | 2019-07-28 10:33 | PT-IP ANOTE ---
Pt scheduled for I&D early this afternoon. PT checked with her for willingness to participate in therapy this morning. She was worried about her drain and stated she preferred to wait until after surgery. Will follow up 07/29/19.
--- NOTE | 2019-07-28 11:17 | PC.NURSE ---
Addendum entered by Leslie Loredo R.N. 07/28/19 13:57: PACU ARRIVED - pt up to void, ret to bed, anes and pacu arrived, reviewed info, including pt recent blood sugar and her dosing this am, reported to pacu that she had a vanco dose that would be scheduled for 1400 and they will consult with Dr. Doty. Original Note: AM NOTE - pt is awake, assisted x1 w/fww to void, ret to dangle position, wound vac at 100mmhg, reinforced during night, per , it will be dc'd at surgery, jason lujan and huyen this am, discussed insulin requirements and npo status after [address] Kaplan and per instructions, given 100u lantus and 2 units novalog ss, 5mg oxycodone for back discomfort.
--- NOTE | 2019-07-28 11:46 | OT.IP.TRT ---
Current Diagnoses Infection following a procedure, other surgical site, initial encounter (07/22/19) Surgery Performed Operation Date: 07/25/19 18:00 Actual Procedures p Incision and Drainage lumbar wound with application of wound vac - Luca Doty MD Operation Date: 07/28/19 14:45 <No data on this case meets the specified criteria> Occupational Therapy Treatment Note M2 OT-IP Current Condition Start: 07/26/19 14:15 Freq: Status: Active Protocol: Document 07/26/19 14:08 PJM (Rec: 07/26/19 14:36 PJM [id number]) Occupational Therapy Current Condition Current Condition Evaluation Date 07/26/19 Treatment Diagnosis decreased self care and functional mobility s/p I&D of lumbar abscess Diagnosis Onset Date 07/22/19 Post Operative Precautions Lumbar Precautions Log Roll,No Twisting,Limit Bending Other Precautions Need to clarify lifting restriction with MD/PA M3 OT- IP Subjective and Pain Start: 07/26/19 14:15 Freq: Status: Active Protocol: Document 07/28/19 11:46 PJM (Rec: 07/28/19 14:11 PJM [id number]) OT- Subjective Occupational Therapy Visit Type Type Treatment Note Visit Start Time 11:30 Visit Stop Time 11:46 Total Visit Minutes 16 Occupational Therapy Visit Comments Patient Comments I am so sleepy. I haven't been getting any sleep at night. Patient/Caregiver Goals to get rid of infection and go home to see pets OT Pain Assessment Pain When Pain Assessed After Treatment Pain Present Pain Present Pain Reported Location Lower Back Intensity 6 Scale Used Numeric (1 - 10) Description Aching,Acute Pain Behaviors Guarding Management Techniques Distraction,Re-positioning, Timing of Activity with Medications M4 OT- IP ADL's Start: 07/26/19 14:15 Freq: Status: Active Protocol: Document 07/28/19 11:46 PJM (Rec: 07/28/19 14:11 PJM [id number]) OT ADL-Toileting General Evaluation Toileting Ability Minimal Assistance Areas Needing Assistance Perform Perineal Hygiene Devices Toileting Assistive Devices Toilet Paper Aid Comments OT Toileting Comments Provided education and written information re: 3 types of toilet paper aids, pros/cons, resources for obtaining one. Pt verbalizes understanding. M5 OT- IP IADL's Start: 07/26/19 14:15 Freq: Status: Active Protocol: Document 07/26/19 14:08 PJM (Rec: 07/26/19 14:36 PJ [email or web address]) OT-Instrumental Activities of Daily Living Deficits IADL Deficits Identified Deficits Home Safety Awareness Awareness of Need for Assistance at Home Good Awareness Ability to Problem Solve Emergency Able to Problem Solve Situations Medication Management Medication Management No Deficits Identified Money Management Money Management No Deficits Identified Meal Preparation Meal Preparation Caregiver Provides Assist Meal Preparation Comments to assist until pt able Expander Expander Caregiver Provides Assist Expander Comments to assist until pt able Driving Driving Caregiver Provides Assist Driving Comments pt does not drive M6 OT- IP Functional Cognition Start: 07/26/19 14:15 Freq: Status: Active Protocol: Document 07/28/19 11:46 PJM (Rec: 07/28/19 14:11 [facility] [id number]) Cognitive Factors Limiting Selfcare Function Cognitive Ability Level of Alertness Drowsy Patient Orientation Name,Age,Birthday,Month,Date, Year,Day of Week,Place, Situation Attention Span Ability Capable of Focused Attention Ability to Follow Commands Able to Follow One Step Commands Memory Description No Deficits Noted Safety Awareness No Deficits Noted Cognitive Comments Cognitive Assessment Comments Pt very drowsy this session; slow to alert. M7 OT- IP Mobility and Balance Start: 07/26/19 14:15 Freq: Status: Active Protocol: Document 07/28/19 11:46 PJM (Rec: 07/28/19 14:11 [facility] [id number]) OT- Bed Mobility Assessment Rolling Level of Assistance Independent,Head of Bed Elevated,Bedrails Supine to Sit Supine to Sit Assist Independent,Head of Bed Elevated Scooting Scooting to Edge of Bed Independent OT-Transfer Assessment Sit to and From Stand Sit to and from Stand Standby Assistance Transfers Transfer Ability Standby Assistance Technique Transfer Destination Toilet Transfer Technique Stand Step Pivot Devices Transfer Assistive Devices Front Wheeled Walker Comments Mobility Comments pt declines gait belt OT- Gait Assessment Gait Gait Assistance Required: Standby Assistance Distance (Feet) 10 Assistive Devices Assistive Device Front Wheeled Walker Comments Gait Ability Comments Pt ambulating to abthroom with FWW with assist only with wound vac. No LOB noted. OT- Balance Assessment Sitting Balance and Reactions Static Sitting Balance Ability Good Dynamic Sitting Balance Ability Good Standing Balance and Reactions Static Standing Balance Ability Good Dynamic Standing Balance Ability Good Comments Other Balance Tests/Deviations/Treatment during toileting, grooming at : sink M9 OT- IP Assessment and Plan Start: 07/26/19 14:15 Freq: Status: Active Protocol: Document 07/28/19 11:46 PJZe (Rec: 07/28/19 14:11 PJM [id number]) OT Summary Assessment and Plan Summary OT Impairments Pain Progress Towards Goals Goals Met Assessment Summary All OT goals achieved for this admission. Pt is familiar with adapted self care techniques from 2 previous back surgeries. She has all necessary equipment at home. She verbalizes and demonstrates understanding of all education. Pt to return to surgery today for second I&D of lumbar abscess. Anticipate pt will d/c home with supportive when medically stable and clears P.T. Frequency of Treatment Frequency Of Treatment Discharge Discharge Recommendations OT Discharge Recommendations Home with Assistance Home Equipment Needs none
--- NOTE | 2019-07-28 13:21 | PM.PREOP ---
Pre-operative Note Interval Note History & Physical reviewed/Exam performed by Physician: Yes Changes to H&P: No
[2019-07-28] MEDS: VANCOMYCIN 1,000 MG/200 ML PIGGYBACK 200 MG IV (14:00)
[2019-07-28] MEDS: SODIUM CHLORIDE IRRIG SOLUTION 3,000 ML, GENTAMICIN 240 MG IRR (14:39)
--- NOTE | 2019-07-28 14:49 | P.OP_ITS ---
Operative Date/Time/Diagnoses Date of procedure: 07/28/19 Time of procedure: 14:49 Pre-op diagnosis: Lumbar wound infection Post-op diagnosis: same Procedure & Clinicians Procedure: Irrigation debridement of deep lumbar wound infection Same procedure as scheduled: Yes Indications: 58-year-old female with a recurrent infection in her left lower back. She had been washed out several days ago and we used come back today for repeat debridement and closure. Risks and benefits of surgery discussed and appropriate consent obtained. Surgeon: Luca Doty [employer] Specialist: Melissa Stewart Anesthesia Type: General Operative Notes Findings: None Closure Type: primary Specimen(s): other (Wound cultures) Estimated Blood Loss (mL): 5 Procedure in detail: Patient brought to the operating room and intubated on the stretcher. She was rolled over to the well-padded prone position on the Juan J table. Time-out was performed. The old wound VAC was removed. The back was prepped and draped in the standard sterile fashion. She had just received her regular vancomycin. We used a Su to sharply debride the soft tissue in her wound. We debrided all the adipose tissue as well as down to the muscle fascia. It also had been tracking down along the left side of the pelvis and we debrided down towards the bone. Overall was very clean and there was barely any necrotic tissue to be removed. The wound was then copiously irrigated. We checked again and it was clean. A deep drain was placed. Superficial tissue was closed. Retention sutures were placed. A sterile dressing was placed. She was then rolled over extubated brought back to the floor without complications. Complications: none Post-operative Condition: stable Disposition: Acute Care Plan for aftercare: Inpatient. Continue IV antibiotics. Monitor drain output.
--- NOTE | 2019-07-28 15:48 | SUR.PHASEI ---
ADDITIONAL BEDSIDE REPORT AND HAND OFF OF CARE TO ACUTE CARE RN.
[2019-07-28] MEDS: LACTATED RINGERS 1,000 ML 125 ML IV ×2 (16:38→23:47)
--- NOTE | 2019-07-28 17:00 | OT.IP.TRT ---
Current Diagnoses Infection following a procedure, other surgical site, initial encounter (07/22/19) Surgery Performed Operation Date: 07/25/19 18:00 Actual Procedures p Incision and Drainage lumbar wound with application of wound vac - Luca Doty MD Operation Date: 07/28/19 14:45 Actual Procedures p Incision and Drainage Wound/Spine - Luca Doty MD Occupational Therapy Treatment Note M2 OT-IP Current Condition Start: 07/26/19 14:15 Freq: Status: Active Protocol: Document 07/26/19 14:08 PJ (Rec: 07/26/19 14:36 PJ [id number]) Occupational Therapy Current Condition Current Condition Evaluation Date 07/26/19 Treatment Diagnosis decreased self care and functional mobility s/p I&D of lumbar abscess Diagnosis Onset Date 07/22/19 Post Operative Precautions Lumbar Precautions Log Roll,No Twisting,Limit Bending Other Precautions Need to clarify lifting restriction with MD/ADARSH M3 OT- IP Subjective and Pain Start: 07/26/19 14:15 Freq: Status: Active Protocol: Document 07/28/19 17:02 PJZe (Rec: 07/28/19 17:04 PJ [id number]) OT- Subjective Occupational Therapy Visit Type Type Administrative Note Visit Start Time 17:00 Notes New OT referral received after pt's repeat I&D for lumbar abscess today. Pt has already been evaluated and all OT education completed re: adapted ADL skills prior to today's surgery. Pt familiar with adapted ADL techniques and has all necessary equipment from 2 previous lumbar spine surgeries. No further OT services needed for this admission.
--- NOTE | 2019-07-28 17:28 | PM.PN.1 ---
Subjective Subjective Date Patient Seen: 07/28/19 Interval history: Patient is 58-year-old female who was admitted to the hospital for I&D of a lumbar abscess. She went back for a 2nd or I&D and washout patient is sitting up eating her meal. Is while she does complain of pain she appears very comfortable. Her cultures thus far are still negative. G stain showed g variable rods but aerobic and anaerobic cultures are negative Exam Vital Signs (past 8 hours): - 07/28/19 13:00 07/28/19 15:05 07/28/19 15:10 Temperature 98.3 F 97.6 F Pulse Rate 58 L 95 H 75 Respiratory Rate 16 20 16 Blood Pressure 98/46 L 110/53 L 120/48 L Pulse Oximetry 97 100 97 07/28/19 15:16 07/28/19 15:21 07/28/19 15:26 Temperature Pulse Rate 68 63 63 Respiratory Rate 14 15 19 Blood Pressure 122/48 L 124/52 L 134/54 L Pulse Oximetry 97 97 100 07/28/19 15:40 07/28/19 16:10 Temperature 97.0 F L 97.1 F L Pulse Rate 63 62 Respiratory Rate 16 16 Blood Pressure 141/61 H 119/62 Pulse Oximetry 99 100 Oxygen Delivery Method Room Air Oxygen Flow Rate 2 Narrative Exam Narrative: Pleasant obese female sitting in her chair in no obvious distress Lungs: Clear to auscultation Cardiac exam: Regular rate and rhythm normal S1-S2 Back exam and wound is dry drain in Abdomen soft and non Extremity no edema Objective Labs Result Diagrams: 07/28/19 06:15 07/28/19 06:15 Labs: Laboratory Results - last 24 hr 07/27/19 07/28/19 07/28/19 17:54 06:15 06:15 WBC 9.6 RBC 3.58 L Hgb 11.0 L Hct 32.6 L MCV 91.1 MCH 30.8 MCHC 33.8 RDW 13.4 Plt Count 460 H Neut % (Auto) 63.1 Lymph % (Auto) 26.0 [place] % (Auto) 7.3 Eos % (Auto) 2.9 Baso % (Auto) 0.7 Neut # (Auto) 6000 Lymph # (Auto) 2500 [place] # (Auto) 700 Eos # (Auto) 300 Baso # (Auto) 100 Sodium 141 Potassium 4.5 Chloride 108 H Carbon Dioxide 27 BUN 21 H Creatinine 0.60 Estimated GFR > 60.0 BUN/Creatinine Ratio 35.0 H Glucose 133 H D Calcium 9.1 Procalcitonin 0.14 Assessment & Plan Assessment & Plan narrative: Assessment & Plan narrative: Impression 1. 58-year-old female with a lumbar abscess status post I&D and wound VAC placement. She was growing Gram-positive rods and g positive cocci in the culture results. Final culture results of this point are negative. Ceftriaxone and Vancomycin discontinued. Will start Augmentin for a total of 2 weeks. She is on Diflucan as well. Patient underwent repeat I& D with washout today, she appears to be making excellent progress 2. Type 2 diabetes, suboptimal control, continue her b.i.d. dosing of Lantus plus her scheduled pre meal insulin. She is also on a high dose sliding scale which will be continued. Usual premeal insulin held this morning before surgery, will resume her home regimen 3. Hypertension, continue usual medication 4. Hyperlipidemia 5. Morbid obesity. 6. Depression, continue usual medication Quality VTE Deep Vein Thrombosis/Pulmonary Embolism Present on Admission: No
[2019-07-28] MEDS: INSULIN ASPART 100 UNIT/ML 10ML VIAL 60 UNIT SUBCUT (18:04)
[2019-07-28] MEDS: ATORVASTATIN 20 MG TABLET PO (20:17)
[2019-07-28] MEDS: AMOXICILLIN/CLAV 875/125 MG 1 TAB PO (20:17)
[2019-07-28] MEDS: ASPIRIN EC 81 MG TABLET PO (20:17)
[2019-07-28] MEDS: SENNOSIDES 8.6 MG TABLET 17.2 MG PO (20:18)
[2019-07-28] MEDS: diphenhydrAMINE 50 MG/ML VIAL 25 MG IV (23:52)
[2019-07-29] MEDS: OXYCODONE IR 5 MG TABLET PO ×4 (02:29→16:45)
--- NOTE | 2019-07-29 02:36 | PC.NURSE ---
Pt back from surgery without issues. Back CDI dressing clean dry and intact. Hemovac dressing clean dry and intact. Pt alert and awake. Pain controlled with PO oxycodone. Pt complaining of itchiness in cyndi area, requested benedryl. No complaints of itchiness after benedryl given. Pt upto bathroom 1 person assist w/o issues. Education given to patient on diabetic diet, pt verbally agrees. WCTM blood sugar results.
[2019-07-29] MEDS: hydrOXYzine pamoate 25 MG CAPSULE PO ×3 (05:06→16:45)
[2019-07-29 06:05] VITALS: BP 122/42; PULSE 59; RESP 16; TEMP 36.4; O2SAT 97
[2019-07-29 06:19] LABS: Add Manual Diff / Slide Review NO; Basophils Absolute Auto 100 /uL (0-100); Basophils Percent Auto 0.5 % (0-2); Eosinophils Absolute Auto 300 /uL (0-450); Eosinophils Percent Auto 2.2 % (2-4); Hemoglobin 10.1 g/dL (12.0-16.0); Lymphocytes Absolute Auto 2700 /uL (1100-4500); Lymphocytes Percent Auto 22.6 % (25-40); Mean Corpuscular HGB Conc 32.5 % (30-36); Mean Corpuscular Hemoglobin 30.1 PG (26-34); Mean Corpuscular Volume 92.6 fL (80-100); Monocytes Absolute Auto 1000 /uL (0-900); Monocytes Percent Auto 8.6 % (3-14); Neutrophils Absolute Auto 8000 /uL (1500-7000); Neutrophils Percent Auto 66.1 % (50-75); Platelet Count 416 X10^3/uL (150-400); Red Blood Cell Count 3.35 X10^6/uL (4.0-5.2); Red Cell Distribution Width 13.2 % (11.6-14.8); White Blood Cell Count 12.1 X10^3/uL (4.5-11.0)
[2019-07-29 06:27] LABS: Blood Urea Nitrogen 12 mg/dL (7-17); Calcium 9.2 mg/dL (8.4-10.2); Carbon Dioxide 29 mmol/L (22-32); Chloride 107 mmol/L (98-107); Estimated Glomerular Filt Rate > 60.0 mL/min (>60); Glucose 75 mg/dL (70-100); HEMOLYSIS < 15 (0-50); Potassium 4.5 mmol/L (3.4-5.1); Sodium 143 mmol/L (137-145)
[2019-07-29] MEDS: LACTATED RINGERS 1,000 ML 125 ML IV (07:11)
--- NOTE | 2019-07-29 07:14 | P.PN_ITS ---
Subjective Subjective Date Patient Seen: 07/29/19 Time Patient Seen: 07:14 Interval history: Complains of pain in the left lower back about 7/10 Exam Vital Signs (past 8 hours): - 07/28/19 23:30 07/29/19 06:05 Temperature 98.7 F 97.6 F Pulse Rate 98 H 59 L Respiratory Rate 16 16 Blood Pressure 118/42 L 122/42 L Pulse Oximetry 98 97 Oxygen Delivery Method Room Air Oxygen Flow Rate 0 Const Orientation: alert and oriented x3 Back/Spine/Pelvis Other: Dressing CDI. 10/20 mL output over the last 2 shifts Objective Labs Result Diagrams: 07/29/19 06:10 07/29/19 06:10 Labs: Laboratory Results - last 24 hr 07/29/19 07/29/19 06:10 06:10 WBC 12.1 H RBC 3.35 L Hgb 10.1 L Hct 31.0 L MCV 92.6 MCH 30.1 MCHC 32.5 RDW 13.2 Plt Count 416 H Neut % (Auto) 66.1 Lymph % (Auto) 22.6 L [place] % (Auto) 8.6 Eos % (Auto) 2.2 Baso % (Auto) 0.5 Neut # (Auto) 8000 H Lymph # (Auto) 2700 [place] # (Auto) 1000 H Eos # (Auto) 300 Baso # (Auto) 100 Sodium 143 Potassium 4.5 Chloride 107 Carbon Dioxide 29 BUN 12 Creatinine 0.60 Estimated GFR > 60.0 BUN/Creatinine Ratio 20.0 Glucose 75 Calcium 9.2 Assessment & Plan Post-op Postoperative Procedures: Procedures Operation Date: 07/25/19 18:00 Actual Procedures Side Surgeon p Incision and Drainage lumbar wound with application of wound vac Luca Doty MD Operation Date: 07/28/19 14:45 Actual Procedures Side Surgeon p Incision and Drainage Wound/Spine Luca Doty MD Still no growth on any of her cultures. The Gram stain from yesterday had no bacteria and the wound looked very good. She has been switched over to oral antibiotics. At this point, we are just waiting for her drain to decrease the output. If there is less than 20 mL in a 24 hour shift the drain can be removed and she can go home. Quality VTE Deep Vein Thrombosis/Pulmonary Embolism Present on Admission: No
--- NOTE | 2019-07-29 07:21 | P.PN_ITS ---
Subjective Subjective Date Patient Seen: 07/29/19 Interval history: Hailey Yu is a 58-year-old female a past medical history significant for morbid obesity, hypertension, hyperlipidemia, diabetes mellitus, insulin using and poorly controlled with multiple recurrent lumbar abscesses due to previous lumbar surgeries with t with recent lumbar surgery and developed a lumbar abscess status post I&D x 2 and wound VAC placement. Medicine consulted for help with antibiotic coverage and diabetic management. The patient is resting in bed side chair comfortably. She complains of a pruritus around her PICC line with superficial thrombophlebitis. Plan to her remove PICC line today. Patient had an episode of hypoglycemic this morning in which her blood glucose was 94 and she was given her nutritional insulin of 60 units and later her blood glucose dropped to 45. She received a snack and her blood glucose improved. She reports that if she would have known her blood glucose was 94 she would not have given herself nutritional insulin or at least not that much. She continues to endorse her chronic back pain. She has no other complaints and denies headache, shortness of breath, chest pain, abdominal pain, nausea, vomiting, fever, chills, dysuria, diarrhea or constipation. She is voiding and eliminating without difficulty. She is up ambulating with assistance. Exam Vital Signs (past 8 hours): - 07/28/19 23:30 07/29/19 06:05 Temperature 98.7 F 97.6 F Pulse Rate 98 H 59 L Respiratory Rate 16 16 Blood Pressure 118/42 L 122/42 L Pulse Oximetry 98 97 Oxygen Delivery Method Room Air Oxygen Flow Rate 0 Narrative Exam Narrative: General: Older female sitting in bedside chair and in no acute distress, appears older than stated age, well-developed, well-nourished, appropriately interactive. HEENT: Normocephalic, atraumatic. External ears without defect. Pupils equal, round, and reactive to light. Anicteric sclerae, moist conjunctivae, and no lid lag. Oropharynx free of erythema and cobble stoning with moist mucosa. Poor dentition. Neck: Supple with full range of motion. No lymphadenopathy or thyromegaly. Cardiovascular: Regular rate and rhythm without murmurs, rubs, or gallops appreciated Pulmonary: Clear to auscultation bilaterally without crackles, wheezes, or rhonchi. Normal respiratory effort with no use of accessory muscles. Abdomen: Bowel tones present. Soft, nontender, nondistended. No hepatosplenomegaly or masses appreciated. Extremities: No clubbing or cyanosis. Mild bipedal edema. Firm superficial thrombophlebitis of right arm associated with PICC line which will be removed today. Skin: Normal temperature, turgor, and texture; no rash, ulcers, or subcutaneous nodules appreciated. Lumbar abscess with bandage in place C/D/I without surr ounding erythema or edema and drain with minimal serosanguineous drainage. Neurological: Cranial nerves grossly intact. Psychiatric: Normal mood and affect. Alert and oriented to person, place, and time. Objective Labs Result Diagrams: 07/29/19 06:10 07/29/19 06:10 Labs: Laboratory Results - last 24 hr 07/29/19 07/29/19 06:10 06:10 WBC 12.1 H RBC 3.35 L Hgb 10.1 L Hct 31.0 L MCV 92.6 MCH 30.1 MCHC 32.5 RDW 13.2 Plt Count 416 H Neut % (Auto) 66.1 Lymph % (Auto) 22.6 L [place] % (Auto) 8.6 Eos % (Auto) 2.2 Baso % (Auto) 0.5 Neut # (Auto) 8000 H Lymph # (Auto) 2700 [place] # (Auto) 1000 H Eos # (Auto) 300 Baso # (Auto) 100 Sodium 143 Potassium 4.5 Chloride 107 Carbon Dioxide 29 BUN 12 Creatinine 0.60 Estimated GFR > 60.0 BUN/Creatinine Ratio 20.0 Glucose 75 Calcium 9.2 Assessment & Plan Assessment & Plan narrative: Hailey Yu is a 58-year-old female a past medical history significant for morbid obesity, hypertension, hyperlipidemia, diabetes mellitus, insulin using and poorly controlled with multiple recurrent lumbar abscesses due to previous lumbar surgeries with t with recent lumbar surgery and developed a lumbar abscess status post I&D x 2 and wound VAC placement. Medicine consulted for help with antibiotic coverage and diabetic management. 1. Recurrent lumbar abscess, present on admission. Active. -Patient with significant co-morbidities including poorly controlled diabetes mellitus with risk of recurrent infections who presented with lumbar back pain and found to have recurrent lumbar abscesses due to previous lumbar surgeries status post I&D x 2 and wound VAC placement. -Initial gram stain positive for Gram variable rods. Repeat Gram stain/wound culture demonstrated no organisms on Gram stain which is reassuring that the infection is being adequately treated. Final wound culture has no growth but likely due to patient being on antibiotics at time of aspiration/collection. Ceftriaxone and vancomycin discontinued and started Augmentin for a total of 2 weeks (7 more days total) per previous providers discussion with on-call ID at [facility]. She received Diflucan as well. -Continue post-operative, pain and DVT prophylaxis per primary team/ortho. 2. Diabetes mellitus type II, insulin-using, suboptimal control, chronic, present on admission. Stable. -Hemoglobin A1C 11.3 % indicative of poor glycemic control. -Held metformin. -Continue home lantus 100 units twice daily, nutritional insulin 60 units three times daily with meals (patient uses high-dose sliding scale much higher than on formulary) and high dose correctional scale insulin. Patient reports she is a brittle diabetic and has high highs and lows. Hold nutritional insulin if blood glucose < 100. -Continue gabapentin 600 mg three times daily. -Continue heart healthy/carbohydrate consistent diet. 3. Superficial thrombophlebitis, unclear if present on admission. Active. -Patient had PICC line placed in right arm with now superficial thrombophlebitis evidence by ultrasound on 07/26. -Plan to remove PICC line today. 4. Hypertension, continue usual medication -Continue lisinopril 20 mg daily. Held HCTZ and triamterene during acute infection due to possibility of dehydration. 5. Hyperlipidemia, chronic, present on admission. Stable. -Continue atorvastatin 20 mg daily at bedtime. 6. Morbid obesity, chronic, present on admission. Stable. -BMI 40.4. -Discussed and recommended lifestyle modification including diet and exercise in detail. 7. Depression, chronic, present on admission. Stable. -Continue sertraline 150 mg daily. Thank you for this most interesting consult. We will sign off at this time but feel free to contact us with any further assistance. Quality VTE Deep Vein Thrombosis/Pulmonary Embolism Present on Admission: No
[2019-07-29] MEDS: INSULIN ASPART 100 UNIT/ML 10ML VIAL 60 UNIT SUBCUT ×3 (07:34→16:45)
[2019-07-29 08:00] VITALS: BP 115/49; PULSE 61; RESP 16; TEMP 36.9; O2SAT 97
[2019-07-29] MEDS: DOCUSATE 100 MG CAPSULE PO ×2 (08:49→21:43)
[2019-07-29] MEDS: SERTRALINE 50 MG TABLET 150 MG PO (08:50)
[2019-07-29] MEDS: GABAPENTIN 600 MG TABLET PO ×3 (08:50→21:43)
[2019-07-29] MEDS: LISINOPRIL 20 MG TABLET PO (08:50)
[2019-07-29] MEDS: LORATADINE 10 MG TABLET PO (08:50)
[2019-07-29] MEDS: INSULIN GLARGINE 100 UNIT/ML 10ML VIAL SUBCUT (08:51)
[2019-07-29] MEDS: AMOXICILLIN/CLAV 875/125 MG 1 TAB PO ×2 (10:11→21:44)
--- NOTE | 2019-07-29 10:12 | PC.NURSE ---
Addendum entered by Allison Cook R.N. 07/29/19 13:52: Saline locked patient after lunch. No nausea or s/s of hypoglycemia from earlier episode. CBG before lunch was 239. pt declined sliding scale and administered her own 60units. Able to ambulate to and from BR to bed/chair with cane and states she feels steady. Found pt back to chair after BR and no staff in the room. I reminded pt to call for help, even if we are just standing by, pt agreed to call next time. Addendum entered by Allison Cook R.N. 07/29/19 10:48: rechecked CBG is at 109 and pt states she is feeling better. pt requested more pacheco crackers and chocolate milk. Original Note: hypoglycemic pt reported feeling hypoglycemic this morning around 1010 when PT checked in to work with the pt. CBG check was 45. pt was alert, oriented, and talking staff through her symptoms. pt reports being diaphoretic and unable to offer any other symptoms. Pt drank 1 regular ensure and 1 package of pacheco crackers. pt stated she manages low sugars with glucose tabs and tea with sugar. pt sitting up at edge of bed, alert and oriented. Will provide pt with tea and recheck CBG in 15 minutes.
--- NOTE | 2019-07-29 10:38 | PT.IPTN ---
Current Diagnoses Infection following a procedure, other surgical site, initial encounter (07/22/19) Surgery Performed Operation Date: 07/25/19 18:00 Actual Procedures p Incision and Drainage lumbar wound with application of wound vac - Luca Doty MD Operation Date: 07/28/19 14:45 Actual Procedures p Incision and Drainage Wound/Spine - Luca Doty MD Physical Therapy Treatment Note M2 PT-IP Current Condition Start: 07/23/19 11:19 Freq: NEEDED Status: Active Protocol: Document 07/26/19 15:00 AB (Rec: 07/26/19 15:52 AB [id number]) Physical Therapy Current Condition Current Condition Evaluation Date 07/26/19 Treatment Diagnosis s/p I&D lumbar abscess; difficulty in walking Onset Date 07/22/19 Precautions Lumbar Precautions Log Roll,No Twisting,Limit Bending,Lifting Restriction of 10 lbs,Gait Belt above Incisional Area Other Precautions wound vac M3 PT-IP Subjective Start: 07/23/19 11:19 Freq: NEEDED Status: Active Protocol: Document 07/29/19 10:38 AB (Rec: 07/29/19 10:38 AB [id number]) Subjective Physical Therapy Visit Type Type Patient Refusal Notes pt refused PT. stated that she is tired this morning and wants to rest. pt agreed to do therapy in the afternoon.
[2019-07-29] MEDS: MAGNESIUM HYDROXIDE 30 ML UDC PO (11:43)
--- NOTE | 2019-07-29 12:24 | PC.NURSE ---
Addendum entered by Allison Cook R.N. 07/29/19 12:36: patch returned to [facility]sis. Original Note: Nicotine patch. pt declined nicotine patch today. pt said that a man already changed it. I told her that I do not see anyone changing her patch since yesterday morning, and that she can refuse if she would like. Patient decided against the new patch. Patch was removed from xsis and is in patient drawer.
--- NOTE | 2019-07-29 14:41 | PT.IPTN ---
Current Diagnoses Infection following a procedure, other surgical site, initial encounter (07/22/19) Surgery Performed Operation Date: 07/25/19 18:00 Actual Procedures p Incision and Drainage lumbar wound with application of wound vac - Luca Doty MD Operation Date: 07/28/19 14:45 Actual Procedures p Incision and Drainage Wound/Spine - Luca Doty MD Physical Therapy Treatment Note M2 PT-IP Current Condition Start: 07/23/19 11:19 Freq: NEEDED Status: Active Protocol: Document 07/26/19 15:00 AB (Rec: 07/26/19 15:52 AB [id number]) Physical Therapy Current Condition Current Condition Evaluation Date 07/26/19 Treatment Diagnosis s/p I&D lumbar abscess; difficulty in walking Onset Date 07/22/19 Precautions Lumbar Precautions Log Roll,No Twisting,Limit Bending,Lifting Restriction of 10 lbs,Gait Belt above Incisional Area Other Precautions wound vac M3 PT-IP Subjective Start: 07/23/19 11:19 Freq: NEEDED Status: Active Protocol: Document 07/29/19 14:41 AB (Rec: 07/29/19 17:19 AB [id number]) Subjective Physical Therapy Visit Type Type Treatment Note Visit Start Time 14:41 Visit Stop Time 15:07 Total Visit Minutes 26 Number of ACCOUNTING MANAGER CPA Visits 0 Physical Therapy Visit Comments Patient Comments pt agreeable to do PT Therapy Pain Assessment Pain When Pain Assessed At Rest Pain Present Pain Present Pain Reported Location Lower Back Intensity 7 Scale Used Numeric (1 - 10) M4 PT-IP Mobility and Gait Start: 07/23/19 11:19 Freq: NEEDED Status: Active Protocol: Document 07/29/19 14:41 AB (Rec: 07/29/19 17:19 AB [id number]) PT-Bed Mobility Assessment Supine to Sit Supine to Sit Standby Assistance,Head of Bed Elevated,Bedrails PT-Transfer Assessment Sit to and From Stand Sit to and from Stand Standby Assistance,1 Person Assistance,Use of Upper Extremities Equipment Transfer Assistive Device Gait Belt,Straight Cane Orthotic/Prosthetic Devices or Brace: No Transfers Transfer Destination Toilet Transfer Technique pt ambulated using SPC Transfer Ability Level of Assist Standby Assistance,Contact Guard Assistance,1 Person Assistance,Use of Upper Extremities Comments Mobility Comments pt completed bed mobility supine to sit with HOB elevated SBA. pt adjusted bed by herself. pt directs her own care. pt ambulated from the bed to the toilet using SPC SBA to CGA with unsteady gait. completed toileting SBA . pt ambulated to the sink using SPC SBA and was able to maintain standing by the counter SBA while completing handwashing. nurse stated that pt can get out of the room as long was wound is secure and covered. pt ambulated out in the hallway using SPC towards the stairs SBA to CGA ~ 75 ft and walked back to the room after completing stair climbing. pt requested to sit on chair and positioned. left pt with call light and table within reach. Gait Assessment Gait Gait Assistance Required: Standby Assistance,Contact Guard Assist Distance (Feet) 75 Able to Maintain Weight Bearing Status Yes During Gait Assistive Devices Assistive Device Gait Belt,Straight Cane Orthotic/Prosthetic Devices or Brace: No Gait Deviations General Gait Pattern Antalgic,Decreased Stride Length,Decreased Feet Clearance Factors Limiting Gait Function Factors Limiting Gait Function Decreased Activity Tolerance, Decreased Strength,Pain,Poor Balance,Poor Safety Awareness Comments Gait Comments completed ambulation using SPC SBA to CGA 75 ft x 2 and cues . pt presents with unsteady gait. (+) LOB posteriorly with pt needing to hold on to pt to recover requiring CGA. Stair Climbing Assessment Evaluation Level of Assist On Stairs Standby Assistance,1 Person Assistance Devices Stair Climbing Assistive Devices Left Railing,Right Railing Technique/Endurance Stair Climbing Direction Ascend and Descend Stair Climbing Technique Step Over Step Number of Steps Climbed 3 Stair Climbing Set # Repetitions (reps) 2 M5 PT-IP Objective Assessments Start: 07/23/19 11:19 Freq: NEEDED Status: Active Protocol: Document 07/26/19 15:00 AB (Rec: 07/26/19 15:52 AB [id number]) Orientation Orientation/Cognition Level of Alertness Alert Orientation Name,Age,Birthday,Place, Situation Language Function Ability No Deficits Noted Safety Awareness Decreased Safety Awareness Gross Range of Motion Lower Extremity ROM Assessment Within Functional Limits Strength Lower Extremity Strength Assessment Bilaterally Impaired Hip 4-/5 Knee 4-/5 Coordination Assessment Gross Coordination Gross Coordination WNL Sensation Assessment Sensation Gross Sensation WNL Muscle Tone Muscle Tone WNL Yes M6 PT-IP Treatment Start: 07/23/19 11:19 Freq: NEEDED Status: Active Protocol: Document 07/29/19 14:41 AB (Rec: 07/29/19 17:19 AB [id number]) Physical Therapy Treatment Education Education Provided Precautions,Weight Bearing Status,Post-Op Packet,Safety M7 PT-IP Assessment and Plan Start: 07/23/19 11:19 Freq: NEEDED Status: Active Protocol: Document 07/29/19 14:41 AB (Rec: 07/29/19 17:19 AB [id number]) PT Summary Assessment and Plan Potential Rehabilitation Potential Good Summary Impairments Pain,ROM,Strength,Balance, Coordination,Sensation,Tone, Cognition,Bed Mobility, Transfers,Gait,Activity Tolerance Progress Towards Goals Progressing Toward Goals Assessment Summary Pt underwent another I&D yesterday but re-eval is not indicated as pt does not have any significant change in functional status. pt continues to require SBA to CGA with mobility using SPC. pt will have her spouse to assist her at home. pt plans to go home. Goals Bed Mobility Goal Independent Transfer Goal Independent,Cane,Front Wheeled Walker Gait Goal Independent,Cane,Front Wheel Walker Gait Distance 200 Other Goals up/down 12 steps with bilateral rails SBA Days to Meet Goals 10 Frequency of Treatment Frequency Of Treatment Once a Day Treatment Plan Physical Therapy Treatment Plan Bed Mobility Training,Transfer Training,Gait Training, Therapeutic Exercise,Balance Retraining,Post Op Education, Discharge Planning,Hot or Cold Pack,Neuromuscular Re-ed, Coordination Retraining,Manual Therapy Other Recommendations and Next Treatment ambulation Focus Recommendations To Nursing Amount of Assist Needed 1 Person Assist Discharge Recommendations PT Discharge Recommendations Home with Assistance
[2019-07-29 15:45] VITALS: BP 149/96; PULSE 65; RESP 18; TEMP 37.2; O2SAT 98
[2019-07-29] MEDS: INSULIN ASPART 100 UNIT/ML 10ML VIAL SUBCUT (16:55)
[2019-07-29] MEDS: diphenhydrAMINE 50 MG/ML VIAL 25 MG IV (19:03)
[2019-07-29] MEDS: ONDANSETRON 4 MG/2 ML INJ IV (19:03)
[2019-07-29 19:32] VITALS: PULSE 69; RESP 16; O2SAT 97
--- NOTE | 2019-07-29 20:11 | PC.NURSE ---
Evening shift: Report received, care assumed. VSS. Back pain 04/04; treated with meds. Warm pack to neck for headache. Up to bathroom, standby assistance. C/o itching at PICC site. Changed dressing, altering location of Tegaderm as able; no relief. Attempted to insert PIV in left arm (d/t thrombophlebitis in right arm) but was unable. Pt. requests Benadryl at this time to relief itching, rather than further attempts at PIV.
[2019-07-29] MEDS: ASPIRIN EC 81 MG TABLET PO (21:42)
[2019-07-29] MEDS: SENNOSIDES 8.6 MG TABLET 17.2 MG PO (21:42)
[2019-07-29] MEDS: HYDROCORTISONE 1% CREAM 28 GM 1 APPLIC TOP (21:43)
[2019-07-29] MEDS: ATORVASTATIN 20 MG TABLET PO (21:45)
[2019-07-29 22:25] VITALS: BP 170/66; PULSE 69; RESP 16; TEMP 36.7; O2SAT 98
[2019-07-30] MEDS: OXYCODONE IR 5 MG TABLET PO ×3 (00:05→07:41)
[2019-07-30] MEDS: hydrOXYzine pamoate 25 MG CAPSULE PO ×2 (00:05→07:41)
[2019-07-30 00:39] VITALS: BP 153/66; PULSE 59; RESP 17; TEMP 36.8; O2SAT 96
[2019-07-30 05:30] VITALS: BP 116/46; PULSE 57; RESP 16; TEMP 36.5; O2SAT 93
--- NOTE | 2019-07-30 07:52 | PC.NURSE ---
Day shift: Pt in good spirits this AM. Hoping to go home soon. Hero-vac patent and putting out a clear/yellow fluid. Did c/o back pain and medicated per DEC. Pt refused SCD use. Explained to Pt about blood clots and end encouraged foot waves. Pt does get OOB and ambulate. Call light in reach. Will continue to monitor.
[2019-07-30 07:56] VITALS: BP 117/46; PULSE 56; RESP 16; TEMP 36.8; O2SAT 98
[2019-07-30 08:02] LABS: Erythrocyte Sedimentation Rate 79 MM/HR (0-20)
[2019-07-30 08:04] LABS: C-Reactive Protein Quant 1.3 mg/dL (<1.0)
--- NOTE | 2019-07-30 08:32 | PM.DS.1 ---
History of Present Illness History of Present Illness Date Patient Seen: 07/30/19 Time Patient Seen: 08:32 Chief complaint: Low back pain status post surgery Narrative: This is a 58-year-old female with a lumbar wound infection. She had an L5-S1 TLIF on 06/04/2015. 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 She was then brought back to the operating room on 01/02/2017 for a fusion at the next level up at L4-5 with revision of her hardware from L4 through S1. She had done fairly well with this until she had pneumonia this winter. She began getting increasing pain in her back and was found to have an abscess at the surgical site, felt to be seeded from her pneumonia. She was brought to the operating room on 12/08/2018 and 12/10/2018 for irrigation debridement. Nothing grew from these cultures but she was sent home from IV then oral antibiotics and seemed to be doing well. A few weeks ago she began having increasing pain into the lower back. She denies any recent infection. She came back to the clinic and Dr. Lombardo had tried to aspirate her back but no fluid was obtainable. A CT scan was then done showing a fluid collection and this was aspirated in clinic by Elvis Vargas PA-C. I do not have the results from this but according to Dr. Tomas, he was called earlier and told that the Gram stain had gram-positive cocci and rods. She was placed on IV vancomycin and I was asked to evaluate further. She does report subjective fevers and chills over the past week. She denies any pain into her legs, all the pain is across her back. It is very uncomfortable to lay on her back. She has been having some drainage from the back. She has also been very nauseated with her medications and her pain. She is an insulin-dependent diabetic but denies any neuropathy with pain numbness or weakness in the feet. No recent weight loss. Denies easy bleeding. No chest pain or shortness of breath. Discharge Providers Provider Date of admission: 07/22/19 11:15 Discharge Date: 07/30/19 Consults: 07/22/19 16:41 Consult to Physical Therapy Evaluate & Treat Comment: Physician Instructions: Evaluate and Treat Consult to Respiratory Therapy Evaluate & Treat Comment: Physician Instructions: Evaluate and treat 07/25/19 19:56 Consult to Occupational Therapy Evaluate & Treat Comment: Physician Instructions: Evaluate and treat Consult to Physical Therapy Evaluate & Treat Comment: Physician Instructions: Evaluate and Treat 07/28/19 15:53 Consult to Occupational Therapy Evaluate & Treat Comment: Physician Instructions: Evaluate and treat Consult to Physical Therapy Evaluate & Treat Comment: Physician Instructions: Evaluate and Treat Discharge provider: Roxanne Thakur PA-C Summary Hospital Course Discharge Diagnosis: s/p I+D of lumbar fusion Anxiety Asthma Chronic pain CVA (cerebral vascular accident) Depression Diabetes Diverticulosis Eczema Edema Fibromyalgia Former smoker Frequent UTI Heart murmur [place] (hard of hearing) HTN (hypertension) Hyperlipidemia Hypothyroid Palpitations Sinus drainage Sleep apnea SOB (shortness of breath) Yeast infection Hospital Course: Hailey was admitted for I+D of lumbar spine. Initial surgery 07/25/19, and then an additional I+D 07/28/[address] Doty. Cultures did not grow anything throughout stay. She remained afebrile prior to discharge. She was eating and voiding without difficulty or assistance. She was mobilizing safely with PT. Exam Vital Signs (past 8 hours): - 07/30/19 00:39 07/30/19 05:30 07/30/19 07:56 Temperature 98.2 F 97.7 F 98.2 F Pulse Rate 59 L 57 L 56 L Respiratory Rate 17 16 16 Blood Pressure 153/66 H 116/46 L 117/46 L Pulse Oximetry 96 93 98 Oxygen Delivery Method Room Air Oxygen Flow Rate 0 Narrative Exam Narrative: Patient sitting in bedside chair. Dressing on back at [facility]. Drain is in place. Last night drain output was 15. CRP was 1.3. Calves are soft, compressible, nontender bilaterally. Pulses are symmetrical. She is able to actively dorsiflex and plantar flex. Objective Labs Result Diagrams: 07/29/19 06:10 07/29/19 06:10 Labs: Laboratory Results - last 24 hr 07/29/19 07/30/19 07/30/19 06:00 07:05 07:05 ESR 79 H C-Reactive Protein 1.3 H Procalcitonin 0.10 Discharge Plan Discharge Plan Patient Disposition: Home Discharge Med Rec/Prescriptions Prescriptions: New amoxicillin-pot clavulanate [Augmentin] 875-125 mg Tablet 1 tab PO BID Qty: 28 RF: 0 oxycodone 5 mg Tablet 5 mg PO Q4-6H PRN (Reason: Pain, Moderate (4-6)) Qty: 40 RF: 0 gabapentin [Neurontin] 600 mg Tablet 600 mg PO TID Qty: 60 RF: 0 docusate sodium [DOK] 100 mg Capsule 100 mg PO BID Qty: 60 RF: 0 hydroxyzine pamoate 25 mg Capsule 25 mg PO TID PRN (Reason: Pain (Scale Score 4-6)) Qty: 50 RF: 1 ondansetron HCl [Zofran] 4 mg tablet 4 mg PO Q6H Qty: 20 RF: 0 Continued Lantus U-100 Insulin 100 UNIT/1 ML solution 100 u SQ BID Qty: 0 RF: 0 lisinopril 20 MG tablet 20 mg PO QDAY Qty: 0 RF: 0 metformin [Glucophage] 500 MG tablet 1 tab PO BID Qty: 0 RF: 0 atorvastatin 20 mg Tablet 20 mg PO DAILY PRN (Reason: Allergic Symptoms) RF: 0 aspirin 81 mg Tablet,Delayed Release (Dr/Ec) 81 mg PO BEDTIME RF: 0 Humalog U-100 Insulin 100 unit/mL Cartridge 40 - 80 unit SUBCUT TID RF: 0 cetirizine 10 mg Capsule 10 mg PO DAILY RF: 0 sertraline [Zoloft] 100 MG tablet 150 mg PO QDAY RF: 0 Excedrin Extra Strength 0.5 tab PO QID PRN (Reason: Pain (Scale Score 1-3)) RF: 0 albuterol sulfate 1 neb Inhalation Q4H PRN (Reason: Dyspnea) RF: 0 ipratropium bromide 1 neb Inhalation Q4H PRN (Reason: Dyspnea) RF: 0 triamterene-hydrochlorothiazid 37.5 MG/25 MG tablet 0.5 tab PO QDAY RF: 0 Discontinued hydroxyzine HCl 25 mg Tablet 25 mg PO TID PRN (Reason: Pain (Scale Score 4-6)) RF: 0 gabapentin [Neurontin] 300 MG capsule 600 mg PO TID RF: 0 hydrocodone-acetaminophen 5-325 mg tablet 1 tab PO Q4HR PRN (Reason: Pain (Scale Score 4-6)) RF: 0 Follow up/Referrals: Jodi Lombardo MD [Physician] - (Follow up in 10-14 days) Provider Discharge Instructions Diet: Diet as Tolerated Activity: No excessive bending, lifting, or twisting Cold/Heat Therapy: as needed Skin/Wound/Dressing Care Report to your healthcare provider any signs of infection, such as:: chills, fever and increased pain Dressing: leave in place until appointment Visit Report/Discharge Packet Instructions: DI for Incision and Drainage Discharges patient from system. Discharge Date/Time: 07/30/19 11:00 Quality VTE Deep Vein Thrombosis/Pulmonary Embolism Present on Admission: No
[2019-07-30] MEDS: INSULIN ASPART 100 UNIT/ML 10ML VIAL 60 UNIT SUBCUT (08:36)
[2019-07-30] MEDS: INSULIN ASPART 100 UNIT/ML 10ML VIAL SUBCUT (08:37)
[2019-07-30] MEDS: INSULIN GLARGINE 100 UNIT/ML 10ML VIAL SUBCUT (08:37)
[2019-07-30] MEDS: AMOXICILLIN/CLAV 875/125 MG 1 TAB PO (08:38)
[2019-07-30] MEDS: ONDANSETRON 4 MG ODT 8 MG PO (08:38)
[2019-07-30] MEDS: DOCUSATE 100 MG CAPSULE PO (08:38)
[2019-07-30 08:39] VITALS: BP 117/46; PULSE 56
[2019-07-30] MEDS: GABAPENTIN 600 MG TABLET PO (08:39)
[2019-07-30] MEDS: LORATADINE 10 MG TABLET PO (08:41)
[2019-07-30] MEDS: NICOTINE 14 PATCH 14 MG TOP (08:41)
[2019-07-30] MEDS: SERTRALINE 50 MG TABLET 150 MG PO (08:42)
[2019-07-30] MEDS: FLUCONAZOLE 150 MG TABLET PO (08:48)
[2019-07-30] MEDS: HYDROCORTISONE 1% CREAM 28 GM 1 APPLIC TOP (08:54)
--- NOTE | 2019-07-30 10:59 | PC.NURSE ---
Day shift: Pt left unit at approx 1100 in WC to private car driven by spouse. Paperwork signed adn gone over with LARON Woods. All questions answered. Pt has all personal belongings as well as MD scrips. PICC line removed and Hero-vac removed per MD orders.
--- NOTE | 2019-07-30 11:01 | PC.NURSE ---
Discharge instructions given to Pt and spouse. Picc and Hemovac d/c'd intact and per protocal. Pt dressed and settled to w/c and escorted out via W/c by Bryan KWON.
--- NOTE | 2019-07-30 12:01 | PT.IPTN ---
Current Diagnoses Infection following a procedure, other surgical site, initial encounter (07/22/19) Surgery Performed Operation Date: 07/25/19 18:00 Actual Procedures p Incision and Drainage lumbar wound with application of wound vac - Luca Doty MD Operation Date: 07/28/19 14:45 Actual Procedures p Incision and Drainage Wound/Spine - Luca Doty MD Physical Therapy Treatment Note M2 PT-IP Current Condition Start: 07/23/19 11:19 Freq: NEEDED Status: Discharge Protocol: Document 07/26/19 15:00 AB (Rec: 07/26/19 15:52 AB [id number]) Physical Therapy Current Condition Current Condition Evaluation Date 07/26/19 Treatment Diagnosis s/p I&D lumbar abscess; difficulty in walking Onset Date 07/22/19 Precautions Lumbar Precautions Log Roll,No Twisting,Limit Bending,Lifting Restriction of 10 lbs,Gait Belt above Incisional Area Other Precautions wound vac M3 PT-IP Subjective Start: 07/23/19 11:19 Freq: NEEDED Status: Discharge Protocol: Document 07/30/19 11:56 AB (Rec: 07/30/19 12:01 AB [email or web address]) Subjective Physical Therapy Visit Type Notes checked on pt and pt is waiting for her and is ready to go home and does not want to do PT.
--- NOTE | 2019-07-30 12:05 | CM.DPC ---
DCP: spoke with patient. Patient will be d/c today 07/30/2019 home with support from spouse (Jono). Patient has OP PT set up for tomorrow 07/31/2019. CM had patient signed MIMM prior to discharge. Patient had no d/c planning needs at this time. Camila Sanchez RN.
== END 2019-07-30 11:00 | disposition home or self-care (01) | DRG 857 ==
PROVIDERS: Internal Medicine; Orthopaedic Surgery; Physician Assistant Surgical; Admitting Provider Orthopaedic Surgery; Visit Provider Orthopaedic Surgery
PROC: 0KBG0ZZ Excision of Left Trunk Muscle, Open Approach (ICD-10-PCS; CPT 10180; principal; 2019-07-25 18:00)
PROC: 0JB70ZZ Excision of Back Subcutaneous Tissue and Fascia, Open Approach (ICD-10-PCS; CPT 10180; principal; 2019-07-28 14:45)
DX: T81.42XA Infection following a procedure, deep incisional surgical site, initial encounter (principal); Z68.41 Body mass index [BMI] 40.0-44.9, adult; L02.212 Cutaneous abscess of back [any part, except buttock and flank]; E66.01 Morbid (severe) obesity due to excess calories; I80.8 Phlebitis and thrombophlebitis of other sites; E11.65 Type 2 diabetes mellitus with hyperglycemia; F17.210 Nicotine dependence, cigarettes, uncomplicated; M62.830 Muscle spasm of back; I10 Essential (primary) hypertension; E78.5 Hyperlipidemia, unspecified; F32.9 Major depressive disorder, single episode, unspecified; Z79.4 Long term (current) use of insulin
CPT/HCPCS: 36415; 36573; 36592; 72158; 80048; 80202; 82565; 82962; 83036; 84145; 85025; 85027; 85651; 86140; 87070; 87075; 87205; 93971; 94640; 97116; 97161; 97165; 97535; J0330; J0696; J1170; J1200; J1885; J2060; J2405; J2704; J3010; J7613

== ENCOUNTER 2020-03-21 22:19 | Inpatient (IN) | payer MEDICARE, SELFPAY ==
--- NOTE | 2020-03-21 22:28 | DI.CT.S_ITS ---
PROCEDURE: CT LUMBAR SPINE W CON INDICATIONS: pain, redness, swelling, history abscess post op TECHNIQUE: After the administration of intravenous Isovue contrast, 3 mm thick sections acquired through the levels of interest. Sagittal and coronal reformats were then constructed. For radiation dose reduction, the following was used: automated exposure control. COMPARISON: [facility], CT, CT LUMBAR SPINE WITH CONTRAST, 07/21/2019, 13:38. [facility], CT, CT LUMBAR SPINE WITHOUT CONTRAST, 12/06/2018, 14:04. [facility], CT, CT LUMBAR SPINE WO CON, 10/08/2015, 12:40. FINDINGS: Image quality: Excellent. Bones: Postsurgical changes compatible with L4-S1 TLIF. Orthopedic hardware is intact. No lucency is identified at the bone hardware interface. Mild multilevel degenerative changes are noted. Moderate L3-L4, L4-L5 and L5-S1 facet arthropathy. No osseous erosive changes. No periosteal reaction. Soft tissues: There is a 4.2 x 4.5 x 7.5 cm a walled off fluid collection with peripheral enhancement in the posterior left paraspinous subcutaneous soft tissues at the level of the L4 vertebral body which could represent postsurgical hematoma or abscess. 2.5 cm right adrenal nodule which has density measurements of 47 Hounsfield units. IMPRESSION: 1. 4.2 x 4.5 x 7.5 cm walled off fluid collection in the left posterior paraspinous soft tissues concerning for abscess. 2. No lito evidence of osteomyelitis. CT can be insensitive to osteomyelitis during the initial 15 days of the disease process. If there is clinical concern for osteomyelitis, then three-phase nuclear medicine bone scan should be considered for further evaluation. 3. Status post L4-S1 TLIF. 4. 2.5 cm right adrenal nodule of stable compared to 10/08/2015 likely represents benign process. Dictated by: Leanne Cruz MD, PhD on 03/22/2020 at 7:56 Approved by: Leanne Cruz MD, PhD on 03/22/2020 at 8:03
[2020-03-21 22:36] VITALS: BP 160/69; PULSE 83; RESP 22; TEMP 36.3; O2SAT 96
--- NOTE | 2020-03-21 22:48 | ED_ITS ---
HPI - Skin/Abscess/Foreign Bdy General Chief complaint: Skin/Abscess/Foreign Body Stated complaint: Infection in back -post surgery Time Seen by Provider: 03/21/20 22:23 Source: patient Mode of arrival: Ambulatory Limitations: no limitations History of Present Illness HPI narrative: 51-year-old female smoker with history of diabetes, COPD, and chronic back pain with prior surgical complications presents with low-grade fever and increasing pain across her back over the past few days. She denies any specific injury but states she has had redness and the development of a ?bump? overlying a surgical incision. Her initial lumbar surgery was in 2014 and she has had multiple complications including a return to the OR for incision and drainage of an abscess in the fall of 2018. She denies nausea, vomiting or diarrhea. She does state that her allergies have been acting up but she has had some sneezing and runny nose but denies any difficulty in breathing. She denies any numbness, tingling or weakness. She denies foot drop. She denies any trouble controlling bowel or bladder. MD complaint: abscess/boil Onset (ago): day(s) Tetanus up to date: yes Location: back Severity: moderate Quality: aching Pain Consistency: constant Relieving factors: none Exacerbating factors: palpation and movement Associated symptoms: fever and nausea Treatments prior to arrival: bandages Related Data Home Medications Medication Instructions Recorded Confirmed Lantus U-100 Insulin 100 u SQ BID #0 08/06/12 03/22/20 lisinopril 20 mg PO QDAY #0 10/09/16 03/22/20 metformin [Glucophage] 1 tab PO BID #0 12/17/16 03/22/20 Humalog U-100 Insulin 40 - 80 unit SUBCUT TID 12/07/18 03/22/20 aspirin 81 mg PO BEDTIME 12/07/18 03/22/20 atorvastatin 20 mg PO DAILY PRN 12/07/18 03/22/20 cetirizine 10 mg PO DAILY 12/07/18 03/22/20 sertraline [Zoloft] 150 mg PO QDAY 12/07/18 03/22/20 Excedrin Extra Strength 0.5 tab PO QID PRN 12/08/18 03/22/20 albuterol sulfate 1 neb INHALATION Q4H PRN 12/08/18 03/22/20 ipratropium bromide 1 neb INHALATION Q4H PRN 12/08/18 03/22/20 triamterene-hydrochlorothiazid 0.5 tab PO QDAY 12/08/18 03/22/20 Previous Rx's Medication Instructions Recorded amoxicillin-pot clavulanate 1 tab PO BID #28 tab 07/30/19 [Augmentin] docusate sodium [DOK] 100 mg PO BID #60 cap 07/30/19 gabapentin [Neurontin] 600 mg PO TID #60 tab 07/30/19 hydroxyzine pamoate 25 mg PO TID PRN #50 cap 07/30/19 ondansetron HCl [Zofran] 4 mg PO Q6H #20 tab 07/30/19 oxycodone 5 mg PO Q4-6H PRN #40 tab 07/30/19 Allergies Allergy/AdvReac Type Severity Reaction Status Date / Time Sulfa (Sulfonamide Allergy Severe SWELLING, Verified 12/08/18 13:09 Antibiotics) NAUSEA cephalexin AdvReac Severe VOMITING Verified 12/08/18 13:09 codeine AdvReac Severe NAUSEA/VOMI Verified 12/08/18 13:09 TING Review of Systems Constitutional Constitutional: Reports chills, Denies fatigue, Reports fever(s), Denies frequent falls, Denies lethargy and Denies weakness Eyes Eyes: Denies change in vision, Denies eye discharge, Denies irritation and Denies loss of vision ENT Ears, Nose, Mouth, and Throat: Denies change in voice, Denies dizziness, Denies neck pain, Denies sore throat and Denies throat swelling Cardiovascular Cardiovascular: Denies chest pain, Denies irregular heart rhythm, Denies lightheadedness, Denies palpitations, Denies dyspnea, Denies dyspnea on exertion and Denies orthopnea Respiratory Respiratory: Denies cough, Denies dyspnea, Denies dyspnea on exertion and Denies wheezing Gastrointestinal Gastrointestinal: Denies abdominal pain, Denies change in bowel habits, Denies diarrhea, Denies nausea and Denies vomiting Genitourinary Genitourinary: Denies hematuria, Denies flank pain, Denies urinary incontinence and Denies urinary urgency Musculoskeletal Musculoskeletal: Reports back pain, Denies muscle weakness, Denies neck pain, Denies numbness and Denies tingling Integumentary/Breasts Skin/Breast: Denies pruritus, Reports erythema, Denies rash, Reports skin swelling and Denies wounds Neurologic Neurologic: Denies behavioral changes, Denies confusion, Denies dizziness, Denies frequent falls, Denies loss of vision, Denies numbness, Denies tingling and Denies weakness Psychiatric Psychiatric: Denies anxiety, Denies behavioral changes, Denies confusion, Denies depression, Denies homicidal ideation and Denies suicidal ideation Endocrine Endocrine: Denies fatigue, Denies flushing and Denies palpitations Hematologic/Lymphatic Hematologic/Lymphatic: Denies easy bruising Allergic/Immunologic Allergic/Immunologic: Denies urticaria, Denies throat swelling and Denies wheezing Patient History Medical History Anxiety (Acute) Asthma (Acute) Chronic pain (Acute) CVA (cerebral vascular accident) (Acute) Depression (Acute) Diabetes (Acute) Diverticulosis (Acute) Eczema (Acute) Edema (Acute) Fibromyalgia (Acute) Former smoker (Acute) Frequent UTI (Acute) Heart murmur (Acute) [place] (hard of hearing) (Acute) HTN (hypertension) (Acute) Hyperlipidemia (Acute) Hypothyroid (Acute) Palpitations (Acute) Sinus drainage (Acute) Sleep apnea (Acute) SOB (shortness of breath) (Acute) Surgical History History of 2 sections (Acute) History of arthroscopy of left shoulder (Acute) History of kidney surgery (Acute) Hx of dilation and curettage (Acute) Hx of laminectomy (Acute ~03/2016) Hx of tonsillectomy (Acute) S/P lumbar fusion (Acute ~05/2015) S/P lumbar fusion (Acute ~12/2016) Social History household members: spouse and family Smoking Status: Current every day smoker alcohol intake: never Smoking Status: Current every day smoker Substance Use Type: does not use Exam Narrative Exam Narrative: GENERAL: [59] year old patient appears stated age. Well- nourished, well-developed patient, in mild distress. Walks in slowly under her own power HEAD: Atraumatic. Normocephalic. EYES: Pupils equal round and reactive. Extraocular motions intact. No scleral icterus. No injection or drainage. ENT: Nose without bleeding, purulent drainage. Throat without erythema, tonsillar hypertrophy or exudate. Airway patent. NECK: Trachea midline. Non tender CARDIOVASCULAR: Regular rate and rhythm without murmurs, gallops, or rubs. RESPIRATORY: Clear to auscultation. Breath sounds equal bilaterally. No wheezes, rales, or rhonchi. GASTROINTESTINAL: Abdomen soft, non-tender, nondistended. EXTREMITIES: No edema or joint tenderness. BACK: Nontender without deformity or crepitance. No flank tenderness. NEURO: AOx3. SKIN: Tender erythematous area and lumbar region overlying this incision from prior surgeries with minimal fluctuance but no obvious drainage. Tender to palpate and warm to the touch consistent with abscess Initial Vital Signs Initial Vital Signs: Vital Signs Temperature 97.3 F L 03/21/20 22:36 Pulse Rate 83 03/21/20 22:36 Respiratory Rate 22 03/21/20 22:36 Blood Pressure 160/69 H 03/21/20 22:36 Pulse Oximetry 96 03/21/20 22:36 Course Orders Ordered: ED Orders 03/21/20 22:28 CT lumbar spine w con Stat 03/21/20 22:50 Blood Culture Stat 03/21/20 23:10 C-Reactive Protein Quant Stat Complete Blood Count AUTO DIFF Stat Comprehensive Metabolic Panel Stat Lactate (Lactic Acid) Stat Procalcitonin Stat 03/21/20 23:35 UA Complete [Urinalysis and Microscopic] Stat 03/22/20 00:38 Education, smoking cessation ONGOING 03/22/20 00:43 Magnesium Routine 03/22/20 00:47 Consult to Dietitian, Adult Routine 03/22/20 00:48 Consult to Discharge Planning Routine Consult to Occupational Therapy Evaluate & Treat Consult to Physical Therapy Evaluate & Treat 03/22/20 00:49 Hemoglobin A1C% w Est Avg Glu Routine 03/22/20 00:53 Consult to Orthopedic Surgery Routine 03/22/20 00:54 Consult to Respiratory Therapy Evaluate & Treat 03/22/20 06:00 Complete Blood Count AUTO DIFF Routine Lipid Panel Routine Acetaminophen (Tylenol) 650 mg PO Q6HR PRN PRN Reason: Fever/Mild Pain (1-3) Albuterol (Ventolin Hfa (Vent/Covid R/O)) 2 puff INH RTQ4HR PRN PRN Reason: Shortness Of Breath Albuterol/Ipratropium (Combivent Respimat) 2 puff INH BID KATTY Dextrose (D50w) 25 gm IV PRN PRN PRN Reason: Hypoglycemia Sodium Chloride (Normal Saline 0.9%) 1,000 mls @ 150 mls/hr IV CONT KATTY Last Admin: 03/22/20 02:06 Dose: 150 mls/hr Documented by: AHARSTA Insulin Aspart (Novolog Flexpen) 60 unit SUBCUT Q6H [facility] Insulin Aspart (Novolog Flexpen) 0 unit SUBCUT Q6H [facility]; Protocol Insulin Glargine (Lantus Solostar (Pen)) 100 unit SUBCUT BID KATTY Naloxone HCl (Narcan) 0.2 mg IV Q2MIN PRN PRN Reason: Opiate Reversal Ondansetron HCl (Zofran) 4 mg IV Q8HR PRN PRN Reason: Nausea And Vomiting Discontinued Medications Dextrose (D50w) 25 gm IV PRN PRN; Protocol PRN Reason: Hypoglycemia Sodium Chloride (Normal Saline 0.9%) 1,000 mls @ 125 mls/hr IV CONT KATTY Last Admin: 03/21/20 22:58 Dose: 125 mls/hr Documented by: CACHORRO Vancomycin HCl/Dextrose (Vancomycin) 1,500 mg in 300 mls @ 200 mls/hr IV NOW ONE Stop: 03/21/20 23:59 Last Infusion: 03/22/20 01:28 Dose: 200 mls/hr Documented by: Admin: 03/21/20 22:58 Dose: 200 mls/hr Documented by: MMCFARL Sodium Chloride (Normal Saline 0.9%) 1,000 mls @ 1,000 mls/hr IV BOLUS ONE Stop: 03/22/20 01:16 Last Infusion: 03/22/20 01:27 Dose: 1,000 mls/hr Documented by: Admin: 03/22/20 00:20 Dose: 1,000 mls/hr Documented by: DENAEFARL Insulin Aspart (Novolog Flexpen) 0 unit SUBCUT Q6H [facility]; Protocol Last Admin: 03/22/20 01:45 Dose: Not Given Documented by: MICHAELRSTA Insulin Aspart (Novolog Flexpen) 60 unit SUBCUT Q6H [facility] Last Admin: 03/22/20 01:45 Dose: Not Given Documented by: JOVANNA Insulin Human Regular (Humulin R) 20 unit SUBCUT NOW ONE Stop: 03/22/20 01:25 Last Admin: 03/22/20 01:33 Dose: 20 unit Documented by: CACHORRO Cosigned by: MARYANN Oxycodone/Acetaminophen (Percocet 5/325) 1 tab PO NOW ONE Stop: 03/22/20 01:25 Last Admin: 03/22/20 01:32 Dose: 1 tab Documented by: CACHORRO Consultations Consultation #1: call to ortho, will see in hospital tomorrow, will likely end up performing another I/D Consultation #2: hospitalist happy to accept Vital Signs Vital signs: Vital Signs - 8 hr 03/21/20 22:36 03/21/20 23:30 03/22/20 00:00 Temperature 97.3 F L Pulse Rate 83 78 81 Respiratory Rate 22 17 16 Blood Pressure 160/69 H Blood Pressure [Left Arm] 126/60 126/57 L Pulse Oximetry 96 97 98 MDM - Skin/Abscess/Foreign Bdy Lab Data Result diagrams: 03/21/20 23:10 03/21/20 23:10 Labs: Lab Results 03/21/20 03/21/20 03/21/20 Range/Units 23:10 23:10 23:10 WBC 15.8 H (4.5-11.0) X10^3/uL RBC 4.13 (4.0-5.2) X10^6/uL Hgb 11.2 L (12.0-16.0) g/dL Hct 35.1 L (36-46) % MCV 85.0 (80-100) fL MCH 27.2 (26-34) PG MCHC 32.0 (30-36) % RDW 16.8 H (11.6-14.8) % Plt Count 474 H (150-400) X10^3/uL Neut % (Auto) 73.3 (50-75) % Lymph % (Auto) 16.6 L (25-40) % [place] % (Auto) 8.7 (3-14) % Eos % (Auto) 0.7 L (2-4) % Baso % (Auto) 0.7 (0-2) % Neut # (Auto) 56549 H (4203-4803) /uL Lymph # (Auto) 2600 (1903-4835) /uL [place] # (Auto) 1400 H (0-900) /uL Eos # (Auto) 100 (0-450) /uL Baso # (Auto) 100 (0-100) /uL Sodium (137-145) mmol/L Potassium (3.4-5.1) mmol/L Chloride (98-107) mmol/L Carbon Dioxide (22-32) mmol/L BUN (7-17) mg/dL Creatinine (0.52-1.04) mg/dL Estimated GFR (>60) mL/min BUN/Creatinine Ratio (6-22) Glucose (70-100) mg/dL Hemoglobin A1c (4.0-6.0) % Lactate 2.5 H (0.7-2.1) mmol/L Calcium (8.4-10.2) mg/dL Magnesium (1.6-2.3) mg/dL Total Bilirubin (0.2-1.3) mg/dL AST (14-36) IU/L ALT (<35) IU/L Alkaline Phosphatase (38-126) U/L C-Reactive Protein (<1.0) mg/dL Total Protein (6.3-8.2) g/dL Albumin (3.5-5.0) g/dL Globulin (1.7-4.1) g/dL Albumin/Globulin Ratio (1.0-2.8) Procalcitonin 0.18 (<0.5) ng/mL Urine Color Urine Appearance Urine pH (4.5-8.0) Ur Specific [place] (1.000-1.035) Urine Protein (Negative) Urine Glucose (UA) (Negative) g/dL Urine Ketones (NEGATIVE) Urine Occult Blood (Negative) Urine Nitrate (Negative) Urine Bilirubin (NEGATIVE) Urine Urobilinogen (0.2) E.U./dL Ur Leukocyte Esterase (NEGATIVE) Urine RBC (0-5/HPF) Urine WBC (0-5/HPF) Urine Bacteria (None) Ur Culture Indicated? 03/21/20 03/21/20 03/21/20 Range/Units 23:10 23:10 23:10 WBC (4.5-11.0) X10^3/uL RBC (4.0-5.2) X10^6/uL Hgb (12.0-16.0) g/dL Hct (36-46) % MCV (80-100) fL MCH (26-34) PG MCHC (30-36) % RDW (11.6-14.8) % Plt Count (150-400) X10^3/uL Neut % (Auto) (50-75) % Lymph % (Auto) (25-40) % [place] % (Auto) (3-14) % Eos % (Auto) (2-4) % Baso % (Auto) (0-2) % Neut # (Auto) (9622-4654) /uL Lymph # (Auto) (4850-7932) /uL [place] # (Auto) (0-900) /uL Eos # (Auto) (0-450) /uL Baso # (Auto) (0-100) /uL Sodium 133 L (137-145) mmol/L Potassium 5.2 H (3.4-5.1) mmol/L Chloride 92 L (98-107) mmol/L Carbon Dioxide 29 (22-32) mmol/L BUN 22 H (7-17) mg/dL Creatinine 0.80 (0.52-1.04) mg/dL Estimated GFR > 60.0 (>60) mL/min BUN/Creatinine Ratio 27.5 H (6-22) Glucose 530 H* (70-100) mg/dL Hemoglobin A1c (4.0-6.0) % Lactate (0.7-2.1) mmol/L Calcium 9.8 (8.4-10.2) mg/dL Magnesium 2.0 (1.6-2.3) mg/dL Total Bilirubin 0.3 (0.2-1.3) mg/dL AST 31 (14-36) IU/L ALT 22 (<35) IU/L Alkaline Phosphatase 197 H (38-126) U/L C-Reactive Protein 4.8 H (<1.0) mg/dL Total Protein 8.1 (6.3-8.2) g/dL Albumin 4.4 (3.5-5.0) g/dL Globulin 3.7 (1.7-4.1) g/dL Albumin/Globulin Ratio 1.2 (1.0-2.8) Procalcitonin (<0.5) ng/mL Urine Color Urine Appearance Urine pH (4.5-8.0) Ur Specific [place] (1.000-1.035) Urine Protein (Negative) Urine Glucose (UA) (Negative) g/dL Urine Ketones (NEGATIVE) Urine Occult Blood (Negative) Urine Nitrate (Negative) Urine Bilirubin (NEGATIVE) Urine Urobilinogen (0.2) E.U./dL Ur Leukocyte Esterase (NEGATIVE) Urine RBC (0-5/HPF) Urine WBC (0-5/HPF) Urine Bacteria (None) Ur Culture Indicated? 03/21/20 03/21/20 Range/Units 23:10 23:35 WBC (4.5-11.0) X10^3/uL RBC (4.0-5.2) X10^6/uL Hgb (12.0-16.0) g/dL Hct (36-46) % MCV (80-100) fL MCH (26-34) PG MCHC (30-36) % RDW (11.6-14.8) % Plt Count (150-400) X10^3/uL Neut % (Auto) (50-75) % Lymph % (Auto) (25-40) % [place] % (Auto) (3-14) % Eos % (Auto) (2-4) % Baso % (Auto) (0-2) % Neut # (Auto) (1106-2099) /uL Lymph # (Auto) (2040-7674) /uL [place] # (Auto) (0-900) /uL Eos # (Auto) (0-450) /uL Baso # (Auto) (0-100) /uL Sodium (137-145) mmol/L Potassium (3.4-5.1) mmol/L Chloride (98-107) mmol/L Carbon Dioxide (22-32) mmol/L BUN (7-17) mg/dL Creatinine (0.52-1.04) mg/dL Estimated GFR (>60) mL/min BUN/Creatinine Ratio (6-22) Glucose (70-100) mg/dL Hemoglobin A1c 12.2 H (4.0-6.0) % Lactate (0.7-2.1) mmol/L Calcium (8.4-10.2) mg/dL Magnesium (1.6-2.3) mg/dL Total Bilirubin (0.2-1.3) mg/dL AST (14-36) IU/L ALT (<35) IU/L Alkaline Phosphatase (38-126) U/L C-Reactive Protein (<1.0) mg/dL Total Protein (6.3-8.2) g/dL Albumin (3.5-5.0) g/dL Globulin (1.7-4.1) g/dL Albumin/Globulin Ratio (1.0-2.8) Procalcitonin (<0.5) ng/mL Urine Color Yellow Urine Appearance Clear Urine pH 6.5 (4.5-8.0) Ur Specific [place] 1.010 (1.000-1.035) Urine Protein Trace H (Negative) Urine Glucose (UA) 2+ H (Negative) g/dL Urine Ketones Negative (NEGATIVE) Urine Occult Blood Negative (Negative) Urine Nitrate Negative (Negative) Urine Bilirubin Negative (NEGATIVE) Urine Urobilinogen 0.2 (0.2) E.U./dL Ur Leukocyte Esterase Negative (NEGATIVE) Urine RBC 0-1/hpf (0-5/HPF) Urine WBC 0-1/hpf (0-5/HPF) Urine Bacteria None seen (None) Ur Culture Indicated? Cult not indicated Point of Care Testing Glucose POC [address] w/contrast: Radiologist's Impression: 7.9cm fluid collection consistent with abscess vs. hematoma Discharge Plan Departure Patient Disposition: Admitted As Inpatient Clinical Impression: Abscess, Acute hyperglycemia Admit Date/Time: 03/22/20 01:13 Admit Provider: Darío Melton
[2020-03-21] MEDS: VANCOMYCIN 1,500 MG/300 ML FROZ.PIGGY 200 MG IV (22:58)
[2020-03-21] MEDS: SODIUM CHLORIDE 0.9% 1,000 ML 125 ML IV (22:58)
[2020-03-21 23:22] LABS: Add Manual Diff / Slide Review NO; Basophils Absolute Auto 100 /uL (0-100); Basophils Percent Auto 0.7 % (0-2); Eosinophils Absolute Auto 100 /uL (0-450); Eosinophils Percent Auto 0.7 % (2-4); Hematocrit 35.1 % (36-46); Hemoglobin 11.2 g/dL (12.0-16.0); Lymphocytes Absolute Auto 2600 /uL (1100-4500); Lymphocytes Percent Auto 16.6 % (25-40); Mean Corpuscular Hemoglobin 27.2 PG (26-34); Monocytes Absolute Auto 1400 /uL (0-900); Monocytes Percent Auto 8.7 % (3-14); Neutrophils Absolute Auto 11600 /uL (1500-7000); Neutrophils Percent Auto 73.3 % (50-75); Platelet Count 474 X10^3/uL (150-400); Red Blood Cell Count 4.13 X10^6/uL (4.0-5.2); Red Cell Distribution Width 16.8 % (11.6-14.8); White Blood Cell Count 15.8 X10^3/uL (4.5-11.0)
[2020-03-21 23:29] LABS: Lactate (Lactic Acid) 2.5 mmol/L (0.7-2.1)
[2020-03-21 23:30] VITALS: BP 126/60; PULSE 78; RESP 17; O2SAT 97
[2020-03-21 23:32] LABS: Alanine Aminotransferase 22 IU/L (<35); Albumin 4.4 g/dL (3.5-5.0); Albumin Globulin Ratio 1.2 (1.0-2.8); Alkaline Phosphatase 197 U/L (38-126); Aspartate Aminotransferase 31 IU/L (14-36); BUN Creatinine Ratio 27.5 (6-22); Bilirubin Total 0.3 mg/dL (0.2-1.3); Blood Urea Nitrogen 22 mg/dL (7-17); Calcium 9.8 mg/dL (8.4-10.2); Carbon Dioxide 29 mmol/L (22-32); Chloride 92 mmol/L (98-107); Estimated Glomerular Filt Rate > 60.0 mL/min (>60); Globulin 3.7 g/dL (1.7-4.1); HEMOLYSIS < 15 (0-50); Sodium 133 mmol/L (137-145); Total Protein 8.1 g/dL (6.3-8.2)
[2020-03-21 23:33] LABS: Potassium 5.2 mmol/L (3.4-5.1)
[2020-03-21 23:34] LABS: Glucose 530 mg/dL (70-100)
[2020-03-21 23:35] LABS: C-Reactive Protein Quant 4.8 mg/dL (<1.0)
[2020-03-21 23:44] LABS: Bacteria Urine None Seen
[2020-03-21 23:45] LABS: Appearance Urine UA CLEAR; Bilirubin Urine UA NEGATIVE (NEGATIVE); Color Urine UA YELLOW; Glucose Urine UA 2+ g/dL (Negative); Ketones Urine UA NEGATIVE (NEGATIVE); Leukocyte Esterase Urine UA NEGATIVE (NEGATIVE); Nitrite Urine UA NEGATIVE (Negative); Occult Blood Urine UA NEGATIVE (Negative); Protein Urine UA TRACE (Negative); Urobilinogen Urine UA 0.2 E.U./dL (0.2)
[2020-03-21 23:47] LABS: Procalcitonin 0.18 ng/mL (<0.5)
[2020-03-21 23:49] LABS: pH Urine UA 6.5 (4.5-8.0)
[2020-03-22] VITALS (20 sets, daily range): BP systolic 119–151; BP diastolic 44–97; PULSE 70–91; RESP 12–17; TEMP 36.1–37.2; O2SAT 91–98; BMI 37.3
[2020-03-22 00:14] LABS: Culture Indicated Urine Cult Not Indicated; RBC Urine 0-1/HPF (0-5/HPF); WBC Urine 0-1/HPF (0-5/HPF)
[2020-03-22] MEDS: SODIUM CHLORIDE 0.9% 1,000 ML 1000 ML IV (00:20)
[2020-03-22 01:16] LABS: Hemoglobin A1C% w Est Avg Glu 12.2 % (4.0-6.0)
[2020-03-22 01:17] LABS: Reflexed Lactate in 2 Hours Y
[2020-03-22] MEDS: OXYCODONE/ACETAMINOPHEN 5/325 TABLET 1 TAB PO (01:32)
[2020-03-22] MEDS: INSULIN REGULAR 100 UNIT/ML 3 ML VIAL 20 UNIT SUBCUT (01:33)
[2020-03-22 01:44] LABS: Lactate 2HR (Lactic Acid Rflx) 2.4 mmol/L (0.7-2.1)
[2020-03-22] MEDS: SODIUM CHLORIDE 0.9% 1,000 ML 150 ML IV (02:06)
--- NOTE | 2020-03-22 03:21 | PC.ADMIT ---
Patient admitted to room 217 from ER per wheelchair. Is alert and oriented but has difficulty sticking to topic; tangential. Breath sounds diminished but CTA with RA sat of 98%. Reports allergies and sometimes needing to use breathing machine at home. Currently denies any SOB. HRR; telemetry reading was SR with PAC's. Denies nausea but states when pain in back becomes more severe it causes abdomen to hurt and she gets nauseated. BT hypoactive. Has urinary urgency but denies frequency or dysuria; has stress incontinence so is wearing small pad. Able to move self in/out of bed and walks with SBA + cane. Currently complains of 6/10 back pain; RN CIRCULATING informed and will enter pain medication orders. Is NPO for probable surgery tomorrow. Reviewed ordered meds/treatments. Oriented to call light and bed controls. Fall risk score is high and bed alarm is activated. [email or web address] Admission Note: The patient,Hailey Yu,59 y/o, was given written information regarding hospital policies, unit procedures and contact persons. Patient's smoking status: Current every day smoker. Vital Signs - 8 hr 03/21/20 22:36 03/21/20 23:30 03/22/20 00:00 Temperature 97.3 F L Pulse Rate 83 78 81 Respiratory Rate 22 17 16 Blood Pressure 160/69 H Blood Pressure [Left Arm] 126/60 126/57 L Pulse Oximetry 96 97 98 03/22/20 02:00 Temperature 99.0 F Pulse Rate 77 Respiratory Rate 16 Blood Pressure 150/63 H Blood Pressure [Left Arm] Pulse Oximetry 98
[2020-03-22] MEDS: HYDROMORPHONE 0.5 MG INJ IV (03:33)
--- NOTE | 2020-03-22 03:52 | PM.HP.1 ---
History of Present Illness History of Present Illness Date Patient Seen: 03/22/20 Time Patient Seen: 02:30 Chief complaint: Infection in back -post surgery Narrative: Ms. Hailey Yu is a 58-year-old female a past medical history significant for smoking, morbid obesity, hypertension, hyperlipidemia, brittle diabetes mellitus type 2, insulin dependent with poor control with multiple multiple recurrent lumbar abscesses due to previous lumbar surgeries who presents to the emergency department today with increasing back pain and fevers. The patient has had multiple lumbar spine surgeries with fusion at L4-5 and L5-S1. The patient has had subsequent recurrent abscesses requiring incision and drainage, the most recent being [phone]. At that time cultures finding 2+ gram variable rods. The patient reports developing back pain 1 week ago. She contacted Dr. Galicia office and was given an appointment for Thursday with instructions to go to the ER if she developed a fever which she did so today reporting a temperature of 101.8?. The patient had left cyndi lumbar pain and her checked the area today finding it inflamed and therefore presenting to the ER for evaluation. The patient reports fevers but denies chills. She has had no known COVID-19 exposures. She does complain of headache but denies visual changes nasal congestion or sore throat. Denies complaints of chest pain though states she has frequent palpitations with a history of intermittently irregular heartbeat. She denies complaints shortness of breath has no cough. She reports usual have shortness of breath when exposed to allergens. She endorses having nausea but no vomiting and denies diarrhea or constipation. She reports no urinary symptoms. Patient states she is able to ambulate and has no numbness or tingling in her extremities. Upon arrival to the ER the patient is afebrile with temperature 97.3?, heart rate of 83, blood pressure of 160/69, respirations of 22 saturating 96% on room air. A CT of the lumbar spine is obtained finding a 7.9 x 4.6 x 5 cm thick walled fluid collection in the left posterior paraspinous region of L4 in the subcutaneous compartment. On laboratory analysis the patient has white count 18.8, hemoglobin of 11.2 and hematocrit of 35.1 and platelets of 474. On chemistries she has a sodium of 133, potassium of 5.2, BUN of 22 and a creatinine 0.8 her glucose is 500 in 30. On liver function tests she has a bilirubin of 0.3, AST of 31, ALT 22 and alkaline phosphatase 197. Her lactic acid is 2.5 with a CRP of 4.8 and procalcitonin 0.18. In the ER the patient received initial dose of vancomycin in COVID-[address] Rowe is contacted is on-call for orthopedics and increase to consult. The patient is admitted to the medicine service for perispinal recurrent abscess. Patient History Medical History Anxiety (Acute) Asthma (Acute) Chronic pain (Acute) CVA (cerebral vascular accident) (Acute) Depression (Acute) Diabetes (Acute) Diverticulosis (Acute) Eczema (Acute) Edema (Acute) Fibromyalgia (Acute) Former smoker (Acute) Frequent UTI (Acute) Heart murmur (Acute) [place] (hard of hearing) (Acute) HTN (hypertension) (Acute) Hyperlipidemia (Acute) Hypothyroid (Acute) Palpitations (Acute) Sinus drainage (Acute) Sleep apnea (Acute) SOB (shortness of breath) (Acute) Surgical History (Updated 03/22/20 @ 04:14 by JENNIFER Valencia) History of 2 sections (Acute) History of arthroscopy of left shoulder (Acute) History of incision and drainage (Acute) History of kidney surgery (Acute) Hx of dilation and curettage (Acute) Hx of laminectomy (Acute ~03/2016) Hx of tonsillectomy (Acute) S/P lumbar fusion (Acute ~05/2015) S/P lumbar fusion (Acute ~12/2016) Family & Social History Family History (Updated 03/22/20 @ 04:17 by JENNIFER Valencia) Father Alcohol abuse Drug abuse Mother Diabetes mellitus Embolism and thrombosis Social History: household members spouse,family Prior Living Arrangements Mobile home Safety & Behavioral: Feels Safe in Current Yes Environment Been Physically Hurt or No Threatened By a Person Suicidal Ideation Description None Suicide Plan Description No Plan Tobacco & Substance use: Tobacco type cigarettes Smoking Status Current every day smoker alcohol intake never Substance Use Type painkillers,prescription drug Comment: The patient is lives in a single family home with her and family. Smoking: The patient reports smoking 15 self rolled cigarettes daily. Alcohol: Patient does not consume alcoholic beverages. Substance use: The patient denies using recreational pharmaceuticals, herbal or cannabis products. Advanced directive: In direct discussion with the patient she states her wish to be FULL CODE. She designates her Jono to be her surrogate decision maker. Meds Home Medications and Allergies Home Medications Medication Instructions Recorded Confirmed Type Lantus U-100 Insulin 100 u SQ BID #0 08/06/12 03/22/20 History lisinopril 20 mg PO QDAY #0 10/09/16 03/22/20 History metformin [Glucophage] 1 tab PO BID #0 12/17/16 03/22/20 History Humalog U-100 Insulin 40 - 80 unit SUBCUT TID 12/07/18 03/22/20 History aspirin 81 mg PO BEDTIME 12/07/18 03/22/20 History atorvastatin 20 mg PO DAILY PRN 12/07/18 03/22/20 History cetirizine 10 mg PO DAILY 12/07/18 03/22/20 History sertraline [Zoloft] 150 mg PO QDAY 12/07/18 03/22/20 History Excedrin Extra Strength 0.5 tab PO QID PRN 12/08/18 03/22/20 History albuterol sulfate 1 neb INHALATION Q4H PRN 12/08/18 03/22/20 History ipratropium bromide 1 neb INHALATION Q4H PRN 12/08/18 03/22/20 History triamterene-hydrochlorothiazid 0.5 tab PO QDAY 12/08/18 03/22/20 History amoxicillin-pot clavulanate 1 tab PO BID #28 tab 07/30/19 03/22/20 Rx [Augmentin] docusate sodium [DOK] 100 mg PO BID #60 cap 07/30/19 03/22/20 Rx gabapentin [Neurontin] 600 mg PO TID #60 tab 07/30/19 03/22/20 Rx hydroxyzine pamoate 25 mg PO TID PRN #50 cap 07/30/19 03/22/20 Rx ondansetron HCl [Zofran] 4 mg PO Q6H #20 tab 07/30/19 03/22/20 Rx oxycodone 5 mg PO Q4-6H PRN #40 tab 07/30/19 03/22/20 Rx Allergies Allergy/AdvReac Type Severity Reaction Status Date / Time Sulfa (Sulfonamide Allergy Severe SWELLING, Verified 12/08/18 13:09 Antibiotics) NAUSEA cephalexin AdvReac Severe VOMITING Verified 12/08/18 13:09 codeine AdvReac Severe NAUSEA/VOMI Verified 12/08/18 13:09 TING Review of Systems Review of Systems ROS: Yes All systems reviewed with the patient and are negative except as otherwise documented Exam Vital Signs (past 8 hours): - 03/21/20 22:36 03/21/20 23:30 03/22/20 00:00 Temperature 97.3 F L Pulse Rate 83 78 81 Respiratory Rate 22 17 16 Blood Pressure 160/69 H Blood Pressure [Left Arm] 126/60 126/57 L Pulse Oximetry 96 97 98 03/22/20 02:00 Temperature 99.0 F Pulse Rate 77 Respiratory Rate 16 Blood Pressure 150/63 H Blood Pressure [Left Arm] Pulse Oximetry 98 Oxygen Delivery Method Room Air Oxygen Flow Rate 0 Narrative Exam Narrative: GENERAL APPEARANCE: well developed, morbidly obese female no acute distress. HEENT: Normocephalic, PERRLA, conjunctiva clear, EOMs intact without nystagmus, no sinus tenderness to percussion, no rhinorrhea, mucous membranes are moist and pink without lesions or exudate. NECK/THYROID: neck supple, no JVD, no carotid bruit, no thyromegaly, trachea midline. LYMPH NODES: no cervical or supraclavicular lymphadenopathy. SKIN: [place], warm and dry, no visible rashes HEART: regular rhythm with extrasystoles, S1-S2, 1/6 systolic murmur, no rubs or gallops, brisk capillary refill, trace pedal edema LUNGS: clear to auscultation bilaterally, no coarseness crackles or wheezing, no cough present CHEST: Symmetrical movement, no accessory muscle use, good tidal volume. ABDOMEN: Soft, obese, no abdominal tenderness, no guarding, no organomegaly, no flank tenderness, active bowel tones. BACK: Well-healed right para lumbar incision, approximately 7 cm inflamed left paraspinal surgical scar with widening and flocculent center acutely tender to palpation. EXTREMITIES: moves all extremities, strength is 5/5 and symmetrical, no deformities or joint effusions. NEUROLOGIC: AAO x4, no focal neurologic deficits, cranial nerves II-XII grossly intact, sensation intact to light touch, hearing grossly normal to speech. PSYCH: Patient is generally cooperative but refuses treatments and interventions, fair eye contact, hyperverbal with 10 gentle thought, stable behavior. Objective Labs Result Diagrams: 03/21/20 23:10 03/21/20 23:10 Labs: Laboratory Results - last 24 hr 03/21/20 03/21/20 03/21/20 23:10 23:10 23:10 WBC 15.8 H RBC 4.13 Hgb 11.2 L Hct 35.1 L MCV 85.0 MCH 27.2 MCHC 32.0 RDW 16.8 H Plt Count 474 H Neut % (Auto) 73.3 Lymph % (Auto) 16.6 L [place] % (Auto) 8.7 Eos % (Auto) 0.7 L Baso % (Auto) 0.7 Neut # (Auto) 38041 H Lymph # (Auto) 2600 [place] # (Auto) 1400 H Eos # (Auto) 100 Baso # (Auto) 100 Sodium Potassium Chloride Carbon Dioxide BUN Creatinine Estimated GFR BUN/Creatinine Ratio Glucose Hemoglobin A1c Lactate 2.5 H Calcium Magnesium Total Bilirubin AST ALT Alkaline Phosphatase C-Reactive Protein Total Protein Albumin Globulin Albumin/Globulin Ratio Procalcitonin 0.18 Urine Color Urine Appearance Urine pH Ur Specific [place] Urine Protein Urine Glucose (UA) Urine Ketones Urine Occult Blood Urine Nitrate Urine Bilirubin Urine Urobilinogen Ur Leukocyte Esterase Urine RBC Urine WBC Urine Bacteria Ur Culture Indicated? 03/21/20 03/21/20 03/21/20 23:10 23:10 23:10 WBC RBC Hgb Hct MCV MCH MCHC RDW Plt Count Neut % (Auto) Lymph % (Auto) [place] % (Auto) Eos % (Auto) Baso % (Auto) Neut # (Auto) Lymph # (Auto) [place] # (Auto) Eos # (Auto) Baso # (Auto) Sodium 133 L Potassium 5.2 H Chloride 92 L Carbon Dioxide 29 BUN 22 H Creatinine 0.80 Estimated GFR > 60.0 BUN/Creatinine Ratio 27.5 H Glucose 530 H* Hemoglobin A1c Lactate Calcium 9.8 Magnesium 2.0 Total Bilirubin 0.3 AST 31 ALT 22 Alkaline Phosphatase 197 H C-Reactive Protein 4.8 H Total Protein 8.1 Albumin 4.4 Globulin 3.7 Albumin/Globulin Ratio 1.2 Procalcitonin Urine Color Urine Appearance Urine pH Ur Specific [place] Urine Protein Urine Glucose (UA) Urine Ketones Urine Occult Blood Urine Nitrate Urine Bilirubin Urine Urobilinogen Ur Leukocyte Esterase Urine RBC Urine WBC Urine Bacteria Ur Culture Indicated? 03/21/20 03/21/20 03/22/20 23:10 23:35 01:25 WBC RBC Hgb Hct MCV MCH MCHC RDW Plt Count Neut % (Auto) Lymph % (Auto) [place] % (Auto) Eos % (Auto) Baso % (Auto) Neut # (Auto) Lymph # (Auto) [place] # (Auto) Eos # (Auto) Baso # (Auto) Sodium Potassium Chloride Carbon Dioxide BUN Creatinine Estimated GFR BUN/Creatinine Ratio Glucose Hemoglobin A1c 12.2 H Lactate 2.4 H Calcium Magnesium Total Bilirubin AST ALT Alkaline Phosphatase C-Reactive Protein Total Protein Albumin Globulin Albumin/Globulin Ratio Procalcitonin Urine Color Yellow Urine Appearance Clear Urine pH 6.5 Ur Specific [place] 1.010 Urine Protein Trace H Urine Glucose (UA) 2+ H Urine Ketones Negative Urine Occult Blood Negative Urine Nitrate Negative Urine Bilirubin Negative Urine Urobilinogen 0.2 Ur Leukocyte Esterase Negative Urine RBC 0-1/hpf Urine WBC 0-1/hpf Urine Bacteria None seen Ur Culture Indicated? Cult not indicated Assessment & Plan Assessment & Plan narrative: This is is a 58-year-old female who has developed a recurrent lumbar abscesses due to previous lumbar surgeries and has poorly controlled diabetes presenting with markedly elevated blood sugar without ketoacidosis. 1. Recurrent lumbar abscess, present on admission. Active. -Patient with significant co-morbidities including poorly controlled diabetes mellitus with risk of recurrent infections who presented with lumbar back pain and found to have recurrent lumbar abscesses due to previous lumbar surgeries status. -MRI of the lumbar spine finds a 7.9 by 4.6 x 5 cm thick walled fluid collection in the left posterior paraspinous region at L4 in the subcutaneous compartment. -patient with elevated white count at 15.8, CRP of 4.8, procalcitonin 0.18. -previous culture revealed gram variable rods, ordered vancomycin to be dosed by pharmacy with 1st 1500 mg dose administered in the emergency department and ceftriaxone 2 g daily. -Dr. Rowe is contacted through the emergency department and agree to orthopedic consult with back specialist, we appreciate their evaluation and recommendations. -patient is NPO pending evaluation. -IV normal saline at 150 cc/hour. -will monitor blood count and procalcitonin. 2. Diabetes mellitus type II, insulin-dependent, uncontrolled with hyperglycemia, present on admission, active -patient with a glucose of 530 on admission labs. Anion gap is 12 without acidosis. Marked hyperglycemia likely a factor in recurrent infections. -Patient received 20 units insulin subcu in the emergency department. -the patient has a history of significant insulin resistance and has previously been prescribed Lantus 100 units twice daily and had been receiving nutritional insulin between 40 and 80 units daily. -the patient reports developing profound muscle cramping secondary to insulin. The patient has significant back her insulin use to Lantus 30 units daily and mealtime insulin to 20 units. The patient takes metformin 500 mg twice daily. The patient is resistant to changes in medication management. -Hemoglobin A1C 12.2 % indicative of poor glycemic control. -fingerstick blood sugar checks every 6 hours while NPO than a.c. and HS. -Continue home lantus 30 units in the morning, nutritional insulin 20 units every 6 hours while the patient is NPO then a.c. and HS. Hold nutritional insulin if blood glucose < 100. -Continue gabapentin 600 mg three times daily. -patient is NPO pending surgical evaluation. -IV normal saline at 150 cc/hour. 3. Hypertension, chronic, present on admission, stable -Continue lisinopril 20 mg and 0.5 tablet of triamterene-hydrochlorothiazide 37.5/25 mg 4. Hyperlipidemia, chronic, present on admission. Stable. -patient has been taking atorvastatin as needed, Continue atorvastatin 20 mg daily at bedtime. -will obtain lipid panel. 5. Current smoker with asthma, chronic, present on admission, stable. -patient with a history of asthma and chronic smoker and describes wheezing associated with exposure to allergens. -no current complaints of shortness of breath coughing or wheezing. Patient is mildly tachypneic at 22 with an oxygen saturation of 96%. -will request respiratory therapy to consult evaluate treat. -albuterol ipratropium inhaler 2 puffs twice daily, albuterol inhaler 2 puffs every 4 hours as needed. 6. Morbid obesity, chronic, present on admission. Stable. -BMI 39.7 -requested dietitian consult for uncontrolled diabetes with hyperglycemia and, irregular eating pattern. 7. Depression, chronic, present on admission. Stable. -Continue sertraline 150 mg daily. Isolation: Droplet, COVID-19 screening. VTE prophylaxis: Patient refused SCDs, holding chemical prophylaxis pending possible surgery. IV fluid: Normal saline 150 cc/hour. Diet: NPO Code status: FULL CODE, Jono is surrogate decision maker. The patient is admitted to the hospital for management of a large cyndi lumbar abscess. The patient is admitted as an inpatient with expected length of stay to be greater than 2 midnights. COVID-19 COVID-19 status: Result pending Result date/Date tested (Pos, Neg/Pending): 03/21/20
[2020-03-22] MEDS: CEFTRIAXONE 2 GM/50 ML FROZ.PIGGY IV (04:50)
[2020-03-22 06:04] LABS: Add Manual Diff / Slide Review NO; Basophils Absolute Auto 100 /uL (0-100); Basophils Percent Auto 0.8 % (0-2); Eosinophils Absolute Auto 100 /uL (0-450); Eosinophils Percent Auto 0.9 % (2-4); Hematocrit 34.9 % (36-46); Hemoglobin 11.2 g/dL (12.0-16.0); Lymphocytes Absolute Auto 2600 /uL (1100-4500); Mean Corpuscular Volume 84.4 fL (80-100); Monocytes Absolute Auto 1100 /uL (0-900); Monocytes Percent Auto 7.8 % (3-14); Neutrophils Absolute Auto 9800 /uL (1500-7000); Neutrophils Percent Auto 71.5 % (50-75); Platelet Count 386 X10^3/uL (150-400); Red Blood Cell Count 4.13 X10^6/uL (4.0-5.2); Red Cell Distribution Width 16.4 % (11.6-14.8); White Blood Cell Count 13.7 X10^3/uL (4.5-11.0)
[2020-03-22] MEDS: INSULIN ASPART 100 UNIT/ML INSULN PEN 20 UNIT SUBCUT ×2 (06:10→21:23)
[2020-03-22] MEDS: INSULIN ASPART 100 UNIT/ML INSULN PEN SUBCUT ×2 (06:10→21:26)
[2020-03-22 06:14] LABS: Cholesterol 65 mg/dL (140-199); HDL Cholesterol 22 mg/dL (40-60); LDL Cholesterol Calculated 28 mg/dL (<100); Triglycerides 74 mg/dL (35-150)
[2020-03-22 06:30] LABS: Procalcitonin 0.13 ng/mL (<0.5)
[2020-03-22] MEDS: ALBUTEROL/IPRATROPIUM MDI 2 PUFF INH (08:10)
--- NOTE | 2020-03-22 08:20 | P.CONS_ITS ---
History of Present Illness Consult details Date Patient Seen: 03/22/20 Time Patient Seen: 08:20 Chief complaint: Infection in back -post surgery Reason for consult: lumbar abscess Requesting provider: Edgar Gage Narrative: This is a 59-year-old female with a lumbar wound infection. She had an L5-S1 TLIF on 06/04/2015. 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 She was then brought back to the operating room on 01/02/2017 for a fusion at the next level up at L4-5 with revision of her hardware from L4 through S1. She had done fairly well with this until she had pneumonia last winter. She began getting increasing pain in her back and was found to have an abscess at the surgical site, felt to be seeded from her pneumonia. She was brought to the operating room on 12/08/2018 and 12/10/2018 for irrigation debridement. Nothing grew from these cultures but she was sent home from IV then oral antibiotics and seemed to be doing well. She then returned with a recurrent abscess in June and was washed out by myself on 07/25/19 and 07/28/2019. Again nothing grew out of her cultures. She began having increasing pain in the back about a week ago. She was getting swelling on the left incision. At first the pain was manageable with a heating pad but became intractable. This has been getting worse over the past few days. She reports she had a 101.5 temperature at home 2 nights ago. The pain was so bad that she finally came into the emergency room last night. The pain is all across the back. She denies pain numbness or weakness into the legs. She was admitted. CT scan showed an abscess. They started her on Rocephin and vancomycin. I was asked to see her for evaluation as I was available. Other than this, she is a very brittle diabetic with a hemoglobin A1c of 12.2 yesterday. She reports that when she uses her insulin she gets pain in her back, in her abdomen, and cramping in her legs. Meds Home Medications and Allergies Home Medications Medication Instructions Recorded Confirmed Type Lantus U-100 Insulin 100 u SQ BID #0 08/06/12 03/22/20 History lisinopril 20 mg PO QDAY #0 10/09/16 03/22/20 History metformin [Glucophage] 1 tab PO BID #0 12/17/16 03/22/20 History Humalog U-100 Insulin 40 - 80 unit SUBCUT TID 12/07/18 03/22/20 History aspirin 81 mg PO BEDTIME 12/07/18 03/22/20 History atorvastatin 20 mg PO DAILY PRN 12/07/18 03/22/20 History cetirizine 10 mg PO DAILY 12/07/18 03/22/20 History sertraline [Zoloft] 150 mg PO QDAY 12/07/18 03/22/20 History Excedrin Extra Strength 0.5 tab PO QID PRN 12/08/18 03/22/20 History albuterol sulfate 1 neb INHALATION Q4H PRN 12/08/18 03/22/20 History ipratropium bromide 1 neb INHALATION Q4H PRN 12/08/18 03/22/20 History triamterene-hydrochlorothiazid 0.5 tab PO QDAY 12/08/18 03/22/20 History amoxicillin-pot clavulanate 1 tab PO BID #28 tab 07/30/19 03/22/20 Rx [Augmentin] docusate sodium [DOK] 100 mg PO BID #60 cap 07/30/19 03/22/20 Rx gabapentin [Neurontin] 600 mg PO TID #60 tab 07/30/19 03/22/20 Rx hydroxyzine pamoate 25 mg PO TID PRN #50 cap 07/30/19 03/22/20 Rx ondansetron HCl [Zofran] 4 mg PO Q6H #20 tab 07/30/19 03/22/20 Rx oxycodone 5 mg PO Q4-6H PRN #40 tab 07/30/19 03/22/20 Rx Allergies Allergy/AdvReac Type Severity Reaction Status Date / Time Sulfa (Sulfonamide Allergy Severe SWELLING, Verified 12/08/18 13:09 Antibiotics) NAUSEA cephalexin AdvReac Severe VOMITING Verified 12/08/18 13:09 codeine AdvReac Severe NAUSEA/VOMI Verified 12/08/18 13:09 TING Review of Systems Constitutional Constitutional: Reports chills and Reports fever(s) Cardiovascular Cardiovascular: Denies chest pain Respiratory Respiratory: Reports cough Comments: She has seasonal allergies but no change in her cough. Gastrointestinal Gastrointestinal: Reports abdominal pain Musculoskeletal Musculoskeletal: Reports muscle cramps and Denies numbness Neurologic Neurologic: Denies numbness Psychiatric Psychiatric: Reports depression Endocrine Comments: Brittle diabetic Hematologic/Lymphatic Hematologic/Lymphatic: Denies easy bleeding Allergic/Immunologic Comments: Seasonal allergies with cough Exam Vital Signs (past 8 hours): - 03/22/20 02:00 03/22/20 06:00 Temperature 99.0 F 98.7 F Pulse Rate 77 71 Respiratory Rate 16 16 Blood Pressure 150/63 H 125/47 L Pulse Oximetry 98 97 Oxygen Delivery Method Room Air Oxygen Flow Rate 0 Const Nutritional Appearance: obese morbidly obese Orientation: alert and oriented x3 Resp Auscultation: clear to auscultation bilaterally Cardio Rate: regular rate Rhythm: regular rhythm Back/Spine/Pelvis Other: Well healed right-sided incision. Left-sided lumbar incision has a 1.5 cm raised area with fluctuance underneath it. Mild erythema around this. No drainage. Tender across lumbar spine. 5/5 motors, intact sensation, good capillary refill, negative straight leg raising both lower extremities. Objective Imaging CT scan lumbar spine: My impression: From 03/21/2020 shows instrumented fusion from L4 through S1. No evidence of osteomyelitis. Appears to be a solid fusion without loosening. There is a 4 x 4 x 7 cm fluid collection in the superficial tissue on the left-hand side. Does not appear to have any spread through the muscle fascia or into the muscle. Labs Result Diagrams: 03/22/20 05:50 03/21/20 23:10 Labs: Laboratory Results - last 24 hr 03/21/20 03/21/20 03/21/20 23:10 23:10 23:10 WBC 15.8 H RBC 4.13 Hgb 11.2 L Hct 35.1 L MCV 85.0 MCH 27.2 MCHC 32.0 RDW 16.8 H Plt Count 474 H Neut % (Auto) 73.3 Lymph % (Auto) 16.6 L [place] % (Auto) 8.7 Eos % (Auto) 0.7 L Baso % (Auto) 0.7 Neut # (Auto) 86214 H Lymph # (Auto) 2600 [place] # (Auto) 1400 H Eos # (Auto) 100 Baso # (Auto) 100 Sodium Potassium Chloride Carbon Dioxide BUN Creatinine Estimated GFR BUN/Creatinine Ratio Glucose Hemoglobin A1c Lactate 2.5 H Calcium Magnesium Total Bilirubin AST ALT Alkaline Phosphatase C-Reactive Protein Total Protein Albumin Globulin Albumin/Globulin Ratio Triglycerides Cholesterol LDL Cholesterol, Calc HDL Cholesterol Procalcitonin 0.18 Urine Color Urine Appearance Urine pH Ur Specific [place] Urine Protein Urine Glucose (UA) Urine Ketones Urine Occult Blood Urine Nitrate Urine Bilirubin Urine Urobilinogen Ur Leukocyte Esterase Urine RBC Urine WBC Urine Bacteria Ur Culture Indicated? 03/21/20 03/21/20 03/21/20 23:10 23:10 23:10 WBC RBC Hgb Hct MCV MCH MCHC RDW Plt Count Neut % (Auto) Lymph % (Auto) [place] % (Auto) Eos % (Auto) Baso % (Auto) Neut # (Auto) Lymph # (Auto) [place] # (Auto) Eos # (Auto) Baso # (Auto) Sodium 133 L Potassium 5.2 H Chloride 92 L Carbon Dioxide 29 BUN 22 H Creatinine 0.80 Estimated GFR > 60.0 BUN/Creatinine Ratio 27.5 H Glucose 530 H* Hemoglobin A1c Lactate Calcium 9.8 Magnesium 2.0 Total Bilirubin 0.3 AST 31 ALT 22 Alkaline Phosphatase 197 H C-Reactive Protein 4.8 H Total Protein 8.1 Albumin 4.4 Globulin 3.7 Albumin/Globulin Ratio 1.2 Triglycerides Cholesterol LDL Cholesterol, Calc HDL Cholesterol Procalcitonin Urine Color Urine Appearance Urine pH Ur Specific [place] Urine Protein Urine Glucose (UA) Urine Ketones Urine Occult Blood Urine Nitrate Urine Bilirubin Urine Urobilinogen Ur Leukocyte Esterase Urine RBC Urine WBC Urine Bacteria Ur Culture Indicated? 03/21/20 03/21/20 03/22/20 23:10 23:35 01:25 WBC RBC Hgb Hct MCV MCH MCHC RDW Plt Count Neut % (Auto) Lymph % (Auto) [place] % (Auto) Eos % (Auto) Baso % (Auto) Neut # (Auto) Lymph # (Auto) [place] # (Auto) Eos # (Auto) Baso # (Auto) Sodium Potassium Chloride Carbon Dioxide BUN Creatinine Estimated GFR BUN/Creatinine Ratio Glucose Hemoglobin A1c 12.2 H Lactate 2.4 H Calcium Magnesium Total Bilirubin AST ALT Alkaline Phosphatase C-Reactive Protein Total Protein Albumin Globulin Albumin/Globulin Ratio Triglycerides Cholesterol LDL Cholesterol, Calc HDL Cholesterol Procalcitonin Urine Color Yellow Urine Appearance Clear Urine pH 6.5 Ur Specific [place] 1.010 Urine Protein Trace H Urine Glucose (UA) 2+ H Urine Ketones Negative Urine Occult Blood Negative Urine Nitrate Negative Urine Bilirubin Negative Urine Urobilinogen 0.2 Ur Leukocyte Esterase Negative Urine RBC 0-1/hpf Urine WBC 0-1/hpf Urine Bacteria None seen Ur Culture Indicated? Cult not indicated 03/22/20 03/22/20 03/22/20 05:50 05:50 05:50 WBC 13.7 H RBC 4.13 Hgb 11.2 L Hct 34.9 L MCV 84.4 MCH 27.0 MCHC 32.0 RDW 16.4 H Plt Count 386 Neut % (Auto) 71.5 Lymph % (Auto) 19.0 L [place] % (Auto) 7.8 Eos % (Auto) 0.9 L Baso % (Auto) 0.8 Neut # (Auto) 9800 H Lymph # (Auto) 2600 [place] # (Auto) 1100 H Eos # (Auto) 100 Baso # (Auto) 100 Sodium Potassium Chloride Carbon Dioxide BUN Creatinine Estimated GFR BUN/Creatinine Ratio Glucose Hemoglobin A1c Lactate Calcium Magnesium Total Bilirubin AST ALT Alkaline Phosphatase C-Reactive Protein Total Protein Albumin Globulin Albumin/Globulin Ratio Triglycerides 74 Cholesterol 65 L LDL Cholesterol, Calc 28 HDL Cholesterol 22 L Procalcitonin 0.13 Urine Color Urine Appearance Urine pH Ur Specific [place] Urine Protein Urine Glucose (UA) Urine Ketones Urine Occult Blood Urine Nitrate Urine Bilirubin Urine Urobilinogen Ur Leukocyte Esterase Urine RBC Urine WBC Urine Bacteria Ur Culture Indicated? Assessment & Plan Assessment & Plan narrative: Recurrent superficial lumbar abscess. I explained to her that this needs to go through repeat debridement. I am not sure why she keeps getting these delayed abscesses, but most likely related to a poor immune system especially in light of her uncontrolled brittle diabetes. Right now this all appears to be superficial on the left side. This does not go through the muscle or down to the hardware. This needs to be washed out before it becomes worse. This may require a wound VAC or a few washouts. Risks and benefits surgery were discussed including but not limited to medical risks with heart attack, stroke, DVT, PE, , ongoing infection with failure to eradicate, bleeding, failure to eliminate all the infection, need for further surgery. She understands and we will do this later today. Brittle diabetes -I have discussed this with Dr. Gage. Hopefully once the infection has been washed out, we will be able to get better glucose control for her. However, the patient does not like to use appropriate higher dose insulin as she gets cramping and pain from it by her report. Most likely this is a lar ge factor in her weakened immune system and recurrent infections. Covid test pending from last night but we will get a rapid test today. COVID-19 COVID-19 status: Result pending Result date/Date tested (Pos, Neg/Pending): 03/21/20
[2020-03-22] MEDS: ONDANSETRON 4 MG/2 ML INJ IV (09:06)
[2020-03-22] MEDS: hydrOXYzine pamoate 25 MG CAPSULE PO ×2 (09:07→20:27)
[2020-03-22] MEDS: ACETAMINOPHEN 325 MG TABLET 650 MG PO (09:07)
[2020-03-22] MEDS: SERTRALINE 50 MG TABLET 150 MG PO (09:07)
[2020-03-22] MEDS: OXYCODONE IR 10 MG TABLET PO ×2 (09:07→21:22)
[2020-03-22] MEDS: lisinopriL 20 MG TABLET PO (09:08)
[2020-03-22] MEDS: GABAPENTIN 600 MG TABLET PO ×2 (09:08→20:27)
[2020-03-22] MEDS: VANCOMYCIN 1,500 MG/300 ML FROZ.PIGGY 200 MG IV (09:27)
[2020-03-22 09:42] LABS: COVID19 -Nasal RAPID Negative (Negative)
[2020-03-22] MEDS: INSULIN GLARGINE 100 UNIT/ML 3ML PEN 30 UNIT SUBCUT (09:50)
[2020-03-22] MEDS: TRIAMTERENE/HCTZ 37.5/25 TABLET 0.5 CAP PO (09:50)
--- NOTE | 2020-03-22 10:03 | PT.IIE ---
Current Diagnoses Infection following a procedure, superficial incisional surgical site, initial encounter (03/22/20) Surgery Performed Operation Date: 03/22/20 15:30 <No data on this case meets the specified criteria> Surgical History (Last Reviewed 03/22/20 @ 08:25 by Luca Doty MD) History of 2 sections (Acute) History of arthroscopy of left shoulder (Acute) History of incision and drainage (Acute) History of kidney surgery (Acute) Hx of dilation and curettage (Acute) Hx of laminectomy (Acute ~03/2016) Hx of tonsillectomy (Acute) S/P lumbar fusion (Acute ~05/2015) S/P lumbar fusion (Acute ~12/2016) Medical History (Last Reviewed 03/22/20 @ 08:25 by Luca Doty MD) Anxiety (Acute) Asthma (Acute) Chronic pain (Acute) CVA (cerebral vascular accident) (Acute) Depression (Acute) Diabetes (Acute) Diverticulosis (Acute) Eczema (Acute) Edema (Acute) Fibromyalgia (Acute) Former smoker (Acute) Frequent UTI (Acute) Heart murmur (Acute) ROSEBUD (hard of hearing) (Acute) HTN (hypertension) (Acute) Hyperlipidemia (Acute) Hypothyroid (Acute) Palpitations (Acute) Sinus drainage (Acute) Sleep apnea (Acute) SOB (shortness of breath) (Acute) Physical Therapy Inpatient Evaluation/Re-Eval M1 PT/OT-IP Prior Functional Status Start: 03/22/20 10:44 Freq: NEEDED Status: Active Protocol: Document 03/22/20 10:03 AB (Rec: 03/22/20 10:54 AB [id number]) Medical Review Prior Functional Status Medical History Reviewed Yes Communication able to make needs known Mobility and Gait pt stated that she is modified independent with all mobilities and ambulation using SPC Prior Functional Level (Other details) pt has h/o several I&D on her back and now is admitted again for another I&D Social History Household Members spouse,family Living Arrangements Mobile home Number of Floors (Floors) One Floor Number of Stairs To Enter/Railing? 12 steps to enter with bilateral rails Home Environment High Toilet,Walk in Shower Home Equipment Front Wheel Walker,Straight Cane,Shower Seat with Backrest ,Hand Held Shower,Grab Bars In Shower M2 PT-IP Current Condition Start: 03/22/20 10:44 Freq: NEEDED Status: Active Protocol: Document 03/22/20 10:03 AB (Rec: 03/22/20 10:54 AB [id number]) Physical Therapy Current Condition Current Condition Evaluation Date 03/22/20 Treatment Diagnosis back infection; difficulty in walking Onset Date 03/22/20 Precautions Lumbar Precautions Log Roll,No Twisting,Limit Bending,Lifting Restriction of 10 lbs,Gait Belt above Incisional Area M3 PT-IP Subjective Start: 03/22/20 10:44 Freq: NEEDED Status: Active Protocol: Document 03/22/20 10:03 AB (Rec: 03/22/20 10:54 AB [id number]) Subjective Physical Therapy Visit Type Type Initial Evaluation Visit Start Time 10:03 Visit Stop Time 10:38 Total Visit Minutes 35 Number of FRUIT OR NUT FARMWORKER Visits 0 Physical Therapy Visit Comments Patient Comments pt agreeable to do PT Therapy Pain Assessment Pain When Pain Assessed At Rest Location Lower Back Scale Used pain scale not given but stated a lot of pain Description Burning M4 PT-IP Mobility and Gait Start: 03/22/20 10:44 Freq: NEEDED Status: Active Protocol: Document 03/22/20 10:03 AB (Rec: 03/22/20 10:54 AB [id number]) PT-Bed Mobility Assessment Supine to Sit Supine to Sit Standby Assistance Sit to Supine Sit to Supine Standby Assistance PT-Transfer Assessment Sit to and From Stand Sit to and from Stand Standby Assistance Equipment Transfer Assistive Device Gait Belt,Straight Cane Orthotic/Prosthetic Devices or Brace: No Comments Mobility Comments pt able to recall back precautions. completed bed mobility SBA, sit to stand SBA and ambulation ~ 350 ft SBA using SPC. pt completed stairs using bilateral rails SBA. Pt with one incidence of LOB but with recovery without needing assistance. Gait Assessment Gait Gait Assistance Required: Standby Assistance Distance (Feet) 350 Able to Maintain Weight Bearing Status Yes During Gait Assistive Devices Assistive Device Gait Belt,Straight Cane Orthotic/Prosthetic Devices or Brace: No Gait Deviations General Gait Pattern Decreased Stride Length, Decreased Feet Clearance Factors Limiting Gait Function Factors Limiting Gait Function Pain,Poor Balance,Poor Safety Awareness Stair Climbing Assessment Evaluation Level of Assist On Stairs Standby Assistance Devices Stair Climbing Assistive Devices Left Railing,Right Railing Technique/Endurance Stair Climbing Direction Ascend and Descend Stair Climbing Technique Step to Step Number of Steps Climbed 3 Query Text: Stair Climbing Set # Repetitions (reps) 1 PT-Balance Assessment Sitting Balance and Reactions Static Sitting Balance Ability Normal Dynamic Sitting Balance Ability Normal Standing Balance and Reactions Static Standing Balance Ability Fair Dynamic Standing Balance Ability Fair Device Used SPC M5 PT-IP Objective Assessments Start: 03/22/20 10:44 Freq: NEEDED Status: Active Protocol: Document 03/22/20 10:03 AB (Rec: 03/22/20 10:54 AB [id number]) Orientation Orientation/Cognition Level of Alertness Alert Orientation Name,Place,Situation Language Function Ability No Deficits Noted Memory Description No Deficits Noted Gross Range of Motion Lower Extremity ROM Assessment Within Functional Limits Strength Lower Extremity Strength Assessment Within Functional Limits Coordination Assessment Gross Coordination Gross Coordination WNL Muscle Tone Muscle Tone WNL Yes M6 PT-IP Treatment Start: 03/22/20 10:44 Freq: NEEDED Status: Active Protocol: Document 03/22/20 10:03 AB (Rec: 03/22/20 10:54 AB [id number]) Physical Therapy Treatment Education Education Provided Precautions,Safety M7 PT-IP Assessment and Plan Start: 03/22/20 10:44 Freq: NEEDED Status: Active Protocol: Document 03/22/20 10:03 AB (Rec: 03/22/20 10:54 AB [id number]) PT Summary Assessment and Plan Potential Rehabilitation Potential Good Status of Condition at Evaluation Stable Summary Impairments Pain,Balance,Bed Mobility, Transfers,Gait,Activity Tolerance Assessment Summary pt requiring SBA with mobility using SPC. Pt is scheduled for I&D of her back this afternoon and will have to reassess mobility s/p I&D to determine safe d/c plan. Pt wants to go home and spouse will be able to assist her. Goals Bed Mobility Goal Independent Transfer Goal Independent,Cane Gait Goal Independent,Cane Gait Distance 350 Other Goals up/down 12 steps bilateral rails mod I Days to Meet Goals 5 Frequency of Treatment Frequency Of Treatment Once a Day Treatment Plan Physical Therapy Treatment Plan Bed Mobility Training,Transfer Training,Gait Training, Therapeutic Exercise,Balance Retraining,Post Op Education, Discharge Planning,Hot or Cold Pack,Neuromuscular Re-ed Recommendations To Nursing Amount of Assist Needed 1 Person Assist Discharge Recommendations PT Discharge Recommendations Home with Assistance Transportation Needs at Discharge Private Vehicle
--- NOTE | 2020-03-22 11:07 | CM.IDA ---
Initial DCP Assessment Note: Patient is a 59 yo female, resident of [place]. Patient presents w/back pain and fever, w/uncontrolled diabetes, going to the OR today w/Dr Doty for I+D of a spinal abscess. Patient has h/o multiple back surgeries and subsequent spinal I+D PCP: Unknown at this time Payer: [employer] Reviewed chart, met w/patient to explain DCP role. Patient was beginning her session w/ Lauren, PT, so kept this visit brief. Patient lives at home w/spouse and expects to return home w/assist from spouse and adult children. Patient is mostly indp. w/ SPC at baseline. Therapy recommending home w/ assist at this time, patient ambulating SBA, therapy will reevaluate s/p I+D. DCP team will plan to follow closely for any DC needs or concerns that might arise. Will reassess s/p I+D. DRU Baires Discharge Planning/Care Management CM Discharge Assessment Start: 03/22/20 10:58 Freq: Status: Active Protocol: Document 03/22/20 10:58 ZAID (Rec: 03/22/20 11:01 ZAID [id number]) Discharge Planning Assessment Assigned [employer]urers Service Representative DRU Harris DPOA/Assigned Designee Name Jono Yu, spouse Contact Information [phone] Advance Directives? No History Provided By Patient,Medical Record Prior Living Arrangements Mobile home Household Members spouse,family Type of transportation used prior to Relies on Others admit Independent with ADL's Yes: Modified Is patient alert and oriented? Yes Comment Home Barriers to Discharge No Comment Will reassess s/p I+D Discharge Plan Home Transportation Arrangement Spouse Referrals Initiated None needed Review Status In Process
--- NOTE | 2020-03-22 12:19 | OT.IP.EVAL ---
Current Diagnoses Infection following a procedure, superficial incisional surgical site, initial encounter (03/22/20) Surgery Performed Operation Date: 03/22/20 15:30 <No data on this case meets the specified criteria> Past Medical History (Last Reviewed 03/22/20 @ 08:25 by Luca Doty MD) Anxiety (Acute) Asthma (Acute) Chronic pain (Acute) CVA (cerebral vascular accident) (Acute) Depression (Acute) Diabetes (Acute) Diverticulosis (Acute) Eczema (Acute) Edema (Acute) Fibromyalgia (Acute) Former smoker (Acute) Frequent UTI (Acute) Heart murmur (Acute) [place] (hard of hearing) (Acute) HTN (hypertension) (Acute) Hyperlipidemia (Acute) Hypothyroid (Acute) Palpitations (Acute) Sinus drainage (Acute) Sleep apnea (Acute) SOB (shortness of breath) (Acute) Surgical History (Last Reviewed 03/22/20 @ 08:25 by Luca Doty MD) History of 2 sections (Acute) History of arthroscopy of left shoulder (Acute) History of incision and drainage (Acute) History of kidney surgery (Acute) Hx of dilation and curettage (Acute) Hx of laminectomy (Acute ~03/2016) Hx of tonsillectomy (Acute) S/P lumbar fusion (Acute ~05/2015) S/P lumbar fusion (Acute ~12/2016) Occupational Therapy Inpatient Evaluation/Re-Eval M1 PT/OT-IP Prior Functional Status Start: 03/22/20 12:49 Freq: NEEDED Status: Active Protocol: Document 03/22/20 11:15 [facility] (Rec: 03/22/20 13:07 [facility] [id number]) Medical Review Prior Functional Status Medical History Reviewed Yes Communication able to make needs known Mobility and Gait pt stated that she is modified independent with all mobilities and ambulation using SPC Activities of Daily Living and IADL's Pt states able to do all ADL's , amd some IADL needs. Pt's changes the cat little and load and unload the dishes and other heavy IADl needs. Prior Functional Level (Other details) pt has h/o several I&D on her back and now is admitted again for another I&D Social History Household Members spouse,family Living Arrangements Mobile home Number of Floors (Floors) One Floor Number of Stairs To Enter/Railing? 12 steps to enter with bilateral rails Home Environment High Toilet,Walk in Shower Home Equipment Front Wheel Walker,Straight Cane,Shower Seat with Backrest ,Hand Held Shower,Grab Bars In Shower M2 OT-IP Current Condition Start: 03/22/20 12:49 Freq: Status: Active Protocol: Document 03/22/20 11:15 [facility] (Rec: 03/22/20 13:07 [facility] [id number]) Occupational Therapy Current Condition Current Condition Evaluation Date 03/22/20 Treatment Diagnosis Recurrent superficial Lumbar abscess Diagnosis Onset Date 03/22/20 Weight Bearing Status Weight Bearing Status Weight Bear as Tolerated M3 OT- IP Subjective and Pain Start: 03/22/20 12:49 Freq: Status: Active Protocol: Document 03/22/20 11:15 [facility] (Rec: 03/22/20 13:07 [facility] [id number]) OT- Subjective Occupational Therapy Visit Type Type Initial Evaluation Visit Start Time 11:15 Visit Stop Time 12:19 Occupational Therapy Visit Comments Patient Comments Pt wanting to shower. Noted drainage form abscess, nurse called and came to clean and but dressing on the wound prior to the shower. Patient/Caregiver Goals To go home. OT Pain Assessment Pain When Pain Assessed At Rest Pain Present Pain Present Denied Pain M4 OT- IP ADL's Start: 03/22/20 12:49 Freq: Status: Active Protocol: Document 03/22/20 11:15 [facility] (Rec: 03/22/20 13:07 [facility] [id number]) OT [id number] Comments OT Self-Feeding Comments Pt NPO at this time due to upcoming I and D to her back this afternoon. OT ADL-Grooming General Evaluation Grooming Ability Minimal Assistance Areas Needing Assistance Combing/Brushing Hair Comments OT Grooming Comments HERRERA to help brush the back of her hair due to getting tired while standing. Educated at home to sit for the task. OT ADL-Oral Care General Eval Oral Care Ability Independent Areas of Assistance Retrieving/Set-Up of Items OT ADL-Dressing General Eval Lower Body Dressing Ability Moderate Assistance Comments OT Dressing Comments Assist to alexys brief over her feet. Pt has all LB dressing equipment from prior surgeries . OT ADL-Toileting General Evaluation Toileting Ability Standby Assistance Devices Toileting Assistive Devices Grab Bars Comments OT Toileting Comments SBA OT ADL-Bathing Bathing Type Bathing Type Shower General Evaluation Bathing Ability Moderate Assistance Areas Needing Assistance Wash/Dry Back,Wash/Dry Perineal Area Devices Bathing Equipment Hand Held Shower Sprayer, Shower Chair with Arms Comments OT Bathing Comments Pt states at home stand to shower. Pt a little unsteady on her feet and able to encourage her to sit to wash. Also while doing pericare needs, and holding onto the grab bar, pt able to increase ease to wash her feet and pericare needs. After surgery though, due to back precautions, pt will need to have assist from her . M5 OT- IP IADL's Start: 03/22/20 12:49 Freq: Status: Active Protocol: Document 03/22/20 11:15 [facility] (Rec: 03/22/20 13:07 [facility] [id number]) OT-Instrumental Activities of Daily Living Deficits IADL Deficits Identified Deficits Home Safety Awareness Awareness of Need for Assistance at Home Good Awareness Ability to Problem Solve Emergency Able to Problem Solve Situations Meal Preparation Meal Preparation Caregiver Provides Assist Raw Products Director Raw Products Director Caregiver Provides Assist M6 OT- IP Functional Cognition Start: 03/22/20 12:49 Freq: Status: Active Protocol: Document 03/22/20 11:15 [facility] (Rec: 03/22/20 13:07 [facility] [id number]) Cognitive Factors Limiting Selfcare Function Cognitive Ability Level of Alertness Alert Patient Orientation Name,Place,Situation Attention Span Ability Capable of Focused Attention, Capable of Sustained Attention Ability to Follow Commands Able to Follow Multi-Step Commands Memory Description No Deficits Noted Cognitive Comments Cognitive Assessment Comments Pt appears at baseline for cognitive needs. OT- Vision and Hearing OT- Hearing Assessment OT- Hearing Assessment WFL OT- Vision Assessment Visual Acuity Glasses For Reading M7 OT- IP Mobility and Balance Start: 03/22/20 12:49 Freq: Status: Active Protocol: Document 03/22/20 11:15 [facility] (Rec: 03/22/20 13:07 [facility] [id number]) OT-Transfer Assessment Sit to and From Stand Sit to and from Stand Standby Assistance Transfers Transfer Ability Standby Assistance,Contact Guard Assistance Technique Transfer Destination Chair,Shower Stall,Toilet Devices Transfer Assistive Devices Gait Belt,Straight Cane Comments Mobility Comments Occasional CGA for baance especially while stepping over the threshold of the shower. OT- Balance Assessment Sitting Balance and Reactions Static Sitting Balance Ability Normal Dynamic Sitting Balance Ability Good Standing Balance and Reactions Static Standing Balance Ability Fair M8 OT- IP Objective Assessments Start: 03/22/20 12:49 Freq: Status: Active Protocol: Document 03/22/20 11:15 [facility] (Rec: 03/22/20 13:07 [facility] [id number]) OT Gross Range of Motion Upper Extremity Range of Motion Assessment Within Functional Limits OT Strength Comments Strength Comments BUE 4/5 M9 OT- IP Assessment and Plan Start: 03/22/20 12:49 Freq: Status: Active Protocol: Document 03/22/20 11:15 [facility] (Rec: 03/22/20 13:07 [facility] [id number]) OT Summary Assessment and Plan Potential Rehabilitation Potential Good Analytic Complexity at Evaluation Low Summary OT Impairments Strength,Functional Mobility, Grooming,Dressing,Toileting, Bathing,Toilet Transfers, Shower Transfers,Activity Tolerance Progress Towards Goals Progressing Toward Goals,Slow Progress due to Medical Issues Assessment Summary Pt here due to recurrent superficial lumbar abscess and to has surgery for I and D. Pt has had multiple lumbar surgeries in 2014, 2015, and 2016 and I and D to back multiple times and has all safety equipment at home and is familiar with adaptive equipment and back precautions . To work with pt tomorrow after her surgery. Goals Grooming Goal Independent Dressing Goal Independent Toileting Goal Independent Bathing Goal Minimal Assistance Toilet Transfer Goal Independent Shower Transfer Goal Standby Assistance Patient/Caregiver Education Goal Caregiver Independent Assisting Patient Days to Meet Goals 7 Frequency of Treatment Frequency Of Treatment Once a Day Treatment Plan OT Treatment Plan ADL Training,Functional Mobility,Patient/Family Education,Discharge Planning Other Treatment Recommendations and Next LB dressing with adaptive Treatment Focus equipment Discharge Recommendations OT Discharge Recommendations Home with Assistance Transportation Needs at Discharge Private Vehicle
[2020-03-22] MEDS: NICOTINE 21 MG PATCH TOP (12:20)
[2020-03-22] MEDS: LACTATED RINGERS 1,000 ML 42 ML IV (14:28)
--- NOTE | 2020-03-22 14:45 | PM.PREOP ---
Pre-operative Note COVID-19 COVID-19 status: Negative Result date/Date tested (Pos, Neg/Pending): 03/22/20 Interval Note History & Physical reviewed/Exam performed by Physician: Yes Changes to H&P: No
--- NOTE | 2020-03-22 14:58 | PC.NURSE ---
Skin: See skin assessment. Lower back skin was intact this am, did have an area of redness by spine. At 1100 this contract technical writer was called to the room and the the area of redness had opened up along the old incision line, draining think yellow red fluid. Area was cleaned and a dry dressing was applied and covered with tegaderm. Dr. Gage and Dr. Campos made aware. Pt off to OR
[2020-03-22] MEDS: SODIUM CHLORIDE 0.9% IRR (15:40)
[2020-03-22] MEDS: GENTAMICIN IRR (15:40)
--- NOTE | 2020-03-22 15:55 | PM.OP.1 ---
Operative Date/Time/Diagnoses Date of procedure: 03/22/20 Time of procedure: 15:55 Pre-op diagnosis: Lumbar wound abscess Post-op diagnosis: same Procedure & Clinicians Procedure: Incisional debridement of lumbar abscess through superficial tissue down to including the muscular fascia Placement of wound VAC Same procedure as scheduled: Yes Indications: 51-year-old female with a recurrent abscess at the site of her previous surgery several years ago. Is felt she needed operative debridement. Risks and benefits of surgery discussed appropriate consents obtained. Surgeon: Luca Doty Click Yes if Unassisted: Yes Anesthesia Type: General Operative Notes Findings: Gross purulence Closure Type: not applicable Specimen(s): other (Lumbar wound abscess cultures) Estimated Blood Loss (mL): 5 Procedure in detail: Patient brought the operating room and intubated on the table. She was rolled over the well-padded prone position on the Juan J table. The back was prepped and draped in standard sterile fashion. Antibiotics had been given routinely previously on the floor and but no new antibiotics were given so that we could get cultures. We used her previous incision to make a 6 cm longitudinal incision on the left-hand side cutting through the area that had actually ruptured earlier today. Gross purulence was released out of this and it was cultured and sent to microbiology. We then used Bovie to split down through the superficial tissue to the remainder of the abscess. This was evacuated with suction. We then used a sharp Su to sharply debride the edges of the skin, the superficial tissue, and the muscle fascia. This was palpated throughout with manual palpation and I could not feel any evidence of the spreading deeper, was constrained by the muscular fascia. This matched up with her CT scan. The wound was then copiously irrigated. As she keeps having recurrent infection at that she was high risk if we just washed her out this 1 time. I then placed a small wound VAC into the wound and we closed it with a vacuum seal with good suction. Dressings were placed. She was rolled over, extubated, brought to recovery room with no complications. Complications: none Post-operative Condition: stable Disposition: PACU Plan for aftercare: Inpatient. IV antibiotics. Will plan on a PICC line. Plan to return in 2 days for repeat irrigation debridement.
[2020-03-22] MEDS: LACTATED RINGERS 1,000 ML 125 ML IV (17:04)
[2020-03-22] MEDS: VANCOMYCIN PER PHARMACY 1 REQUEST MISC (18:28)
[2020-03-22] MEDS: ATORVASTATIN 20 MG TABLET PO (20:27)
[2020-03-22] MEDS: METFORMIN HCL 500 MG TABLET PO (20:27)
[2020-03-22] MEDS: DOCUSATE 100 MG CAPSULE PO (20:27)
[2020-03-22] MEDS: ASPIRIN EC 81 MG TABLET PO (20:27)
[2020-03-22] MEDS: SENNOSIDES 8.6 MG TABLET 17.2 MG PO (20:27)
[2020-03-22] MEDS: HYDROMORPHONE 0.5 MG INJ 0.2 MG IV (20:47)
[2020-03-22] MEDS: VANCOMYCIN 1,000 MG/200 ML PIGGYBACK 200 MG IV (21:02)
[2020-03-22] MEDS: SODIUM CHLORIDE 0.9% 1,000 ML 75 ML IV (21:22)
[2020-03-22] MEDS: BENZOCAINE/MENTHOL 1 LOZ PKT 1 EACH PO ×2 (21:22→23:41)
[2020-03-23] VITALS (8 sets, daily range): BP systolic 130–155; BP diastolic 50–89; PULSE 66–97; RESP 14–17; TEMP 36.1–36.8; O2SAT 94–98
--- NOTE | 2020-03-23 02:18 | PC.NURSE ---
Addendum entered by Patricia York R.N. 03/23/20 05:31: Patient again complaining of 6/10 pain in addition to having left leg cramps; medicated with Dilaudid for back pain and Vistaril for leg cramp. Warm blanket also applied to leg for comfort. Addendum entered by Patricia York R.N. 03/23/20 02:54: Complains of 6/10 pain so medicated with Oxycodone Original Note: Patient seen and assessed at 2350. Is alert and oriented. Breath sounds diminished but CTA with RA sat of 97%. HRR. Denies nausea. BT hypoactive; denies flatus. Up to BSC with 1 assist + cane and is steady on feet; not voiding as frequently tonight. Is able to turn herself in bed. Dressing to back/wound vac intact and wound vac is at 125mmHg. States pain is tolerable at 4/10 and declined pain medication. Fall risk score is high and bed alarm is activated. On contact isolation as wound culture is growing gm + cocci. Continues to refuse use of SCD's.
[2020-03-23] MEDS: OXYCODONE IR 5 MG TABLET PO (02:51)
[2020-03-23] MEDS: CEFTRIAXONE 2 GM/50 ML FROZ.PIGGY IV (04:31)
[2020-03-23] MEDS: hydrOXYzine pamoate 25 MG CAPSULE PO ×3 (05:29→21:03)
[2020-03-23] MEDS: HYDROMORPHONE 0.5 MG INJ 0.2 MG IV ×2 (05:29→22:27)
--- NOTE | 2020-03-23 07:27 | PM.PNPO.1 ---
Subjective Subjective Date Patient Seen: 03/23/20 Time Patient Seen: 07:27 Interval history: She is doing all right. Back is sore with moving. Exam Vital Signs (past 8 hours): - 03/22/20 23:40 03/23/20 02:55 Temperature 97.7 F 97.2 F L Pulse Rate 79 66 Respiratory Rate 16 16 Blood Pressure 119/57 L 141/57 H Pulse Oximetry 97 96 Oxygen Delivery Method Room Air Oxygen Flow Rate 0 Const Orientation: alert and oriented x3 Back/Spine/Pelvis Other: Dressing CDI. 5/5 motor both lower extremities. Low output in drain, not recorded Objective Labs Result Diagrams: 03/22/20 05:50 03/21/20 23:10 Labs: Laboratory Results - last 24 hr 03/21/20 03/21/20 23:20 23:20 COVID-19 PCR Cancelled Negative her wound culture Gram stain showed gram-positive cocci and Gram-positive rods. No growth to date. Assessment & Plan Post-op Postoperative Procedures: Procedures Operation Date: 03/22/20 14:30 Actual Procedures Side Surgeon p Incision and Drainage Wound/Spine Luca Doty MD stable after irrigation debridement of lumbar abscess. She has a wound VAC and I plan to return to the operating room tomorrow morning to wash this out again and hopefully close. We are waiting on cultures but will continue on vancomycin and Rocephin for now. Adjust antibiotics as cultures grow. Due to her recurrent abscesses, years after her surgery, infectious disease consult and follow-up is probably best for her. Plan for PICC line today.
[2020-03-23] MEDS: GABAPENTIN 600 MG TABLET PO ×2 (08:43→20:55)
[2020-03-23] MEDS: DOCUSATE 100 MG CAPSULE PO ×2 (08:43→20:55)
[2020-03-23] MEDS: OXYCODONE IR 10 MG TABLET PO ×3 (08:43→21:03)
[2020-03-23] MEDS: LORATADINE 10 MG TABLET PO (08:45)
[2020-03-23] MEDS: METFORMIN HCL 500 MG TABLET PO ×2 (08:45→20:55)
[2020-03-23] MEDS: INSULIN ASPART 100 UNIT/ML INSULN PEN SUBCUT ×4 (08:47→20:57)
[2020-03-23] MEDS: INSULIN ASPART 100 UNIT/ML INSULN PEN 20 UNIT SUBCUT ×4 (08:47→20:57)
[2020-03-23] MEDS: INSULIN GLARGINE 100 UNIT/ML 3ML PEN 30 UNIT SUBCUT (08:48)
[2020-03-23] MEDS: ALBUTEROL/IPRATROPIUM MDI 2 PUFF INH ×2 (09:59→19:01)
--- NOTE | 2020-03-23 10:09 | OT.IP.TRT ---
Current Diagnoses Infection following a procedure, superficial incisional surgical site, initial encounter (03/22/20) Surgery Performed Operation Date: 03/22/20 14:30 Actual Procedures p Incision and Drainage Wound/Spine - Luca Doty MD Operation Date: 03/24/20 08:00 <No data on this case meets the specified criteria> Occupational Therapy Treatment Note M2 OT-IP Current Condition Start: 03/22/20 12:49 Freq: Status: Active Protocol: Document 03/22/20 11:15 [facility] (Rec: 03/22/20 13:07 [facility] [id number]) Occupational Therapy Current Condition Current Condition Evaluation Date 03/22/20 Treatment Diagnosis Recurrent superficial Lumbar abscess Diagnosis Onset Date 03/22/20 Weight Bearing Status Weight Bearing Status Weight Bear as Tolerated M3 OT- IP Subjective and Pain Start: 03/22/20 12:49 Freq: Status: Active Protocol: Document 03/23/20 10:09 [facility] (Rec: 03/23/20 10:17 [facility] [id number]) OT- Subjective Occupational Therapy Visit Type Type Treatment Note Visit Start Time 09:31 Visit Stop Time 10:09 Total Visit Minutes 38 Occupational Therapy Visit Comments Patient Comments It feels better to sit up OT Pain Assessment Pain When Pain Assessed At Rest Pain Present Pain Present Pain Reported Location Lower Back Scale Used declined to rate M4 OT- IP ADL's Start: 03/22/20 12:49 Freq: Status: Active Protocol: Document 03/23/20 10:09 [facility] (Rec: 03/23/20 10:17 [facility] [id number]) OT LWX-Pgel-Bvkljix General Evaluation Self-Feeding Ability Independent Comments OT Self-Feeding Comments as seen when checked on earlier this AM OT ADL-Grooming General Evaluation Grooming Ability Maximum Assistance Areas Needing Assistance Combing/Brushing Hair Comments OT Grooming Comments SBA for washing face standing at sink. Max a for brushing and braiding hair per pt request. OT ADL-Oral Care General Eval Oral Care Ability Standby Assistance Comments Oral Care Comments standing at sink OT ADL-Dressing General Eval Lower Body Dressing Ability Total Assistance Areas Needing Assistance Socks Comments OT Dressing Comments seated at EOB OT ADL-Toileting Comments OT Toileting Comments Pt declined need OT ADL-Bathing Comments OT Bathing Comments Not performed on this date M5 OT- IP IADL's Start: 03/22/20 12:49 Freq: Status: Active Protocol: Document 03/22/20 11:15 [facility] (Rec: 03/22/20 13:07 [facility] [id number]) OT-Instrumental Activities of Daily Living Deficits IADL Deficits Identified Deficits Home Safety Awareness Awareness of Need for Assistance at Home Good Awareness Ability to Problem Solve Emergency Able to Problem Solve Situations Meal Preparation Meal Preparation Caregiver Provides Assist Outfitter Cabin Outfitter Cabin Caregiver Provides Assist M6 OT- IP Functional Cognition Start: 03/22/20 12:49 Freq: Status: Active Protocol: Document 03/22/20 11:15 [facility] (Rec: 03/22/20 13:07 [facility] [id number]) Cognitive Factors Limiting Selfcare Function Cognitive Ability Level of Alertness Alert Patient Orientation Name,Place,Situation Attention Span Ability Capable of Focused Attention, Capable of Sustained Attention Ability to Follow Commands Able to Follow Multi-Step Commands Memory Description No Deficits Noted Cognitive Comments Cognitive Assessment Comments Pt appears at baseline for cognitive needs. OT- Vision and Hearing OT- Hearing Assessment OT- Hearing Assessment WFL OT- Vision Assessment Visual Acuity Glasses For Reading M7 OT- IP Mobility and Balance Start: 03/22/20 12:49 Freq: Status: Active Protocol: Document 03/23/20 10:09 [facility] (Rec: 03/23/20 10:17 [facility] [id number]) OT-Transfer Assessment Sit to and From Stand Sit to and from Stand Standby Assistance Transfers Transfer Ability Standby Assistance Technique Transfer Destination Bed,Chair Transfer Technique Stand Step Pivot Devices Transfer Assistive Devices Straight Cane Comments Mobility Comments Mobility around the room. Pt needed this publicity writer to move wound vac. OT- Gait Assessment Gait Gait Assistance Required: Standby Assistance Assistive Devices Assistive Device Straight Cane Comments Gait Ability Comments Mobility around the room. OT- Balance Assessment Sitting Balance and Reactions Static Sitting Balance Ability Good Dynamic Sitting Balance Ability Fair Standing Balance and Reactions Static Standing Balance Ability Fair Dynamic Standing Balance Ability Fair M8 OT- IP Objective Assessments Start: 03/22/20 12:49 Freq: Status: Active Protocol: Document 03/23/20 10:09 [facility] (Rec: 03/23/20 10:17 [facility] [id number]) OT Gross Range of Motion Upper Extremity Range of Motion Assessment Within Functional Limits OT Strength Comments Strength Comments BUE 4/5 OT- Coordination Assessment Upper Extremity Finger to Nose Test Within Functional Limits OT-Muscle Tone Assessment Muscle Tone WNL Yes OT Sensation Assessment Edema Edema Absent M9 OT- IP Assessment and Plan Start: 03/22/20 12:49 Freq: Status: Active Protocol: Document 03/23/20 10:09 [facility] (Rec: 03/23/20 10:17 [facility] [id number]) OT Summary Assessment and Plan Potential Rehabilitation Potential Good Analytic Complexity at Evaluation Low Summary OT Impairments Strength,Functional Mobility, Grooming,Dressing,Toileting, Bathing,Toilet Transfers, Shower Transfers,Activity Tolerance Progress Towards Goals Progressing Toward Goals,Slow Progress due to Medical Issues Assessment Summary Pt here due to recurrent superficial lumbar abscess and to has surgery for I and D. Pt is planned for another I & D tomorrow 03/24/20. Pt was able to tolerate standing activity on this date and is likely close to her baseline but will continue to benefit from OT services while hospitalized. Goals Grooming Goal Independent Dressing Goal Independent Toileting Goal Independent Bathing Goal Minimal Assistance Toilet Transfer Goal Independent Shower Transfer Goal Standby Assistance Patient/Caregiver Education Goal Caregiver Independent Assisting Patient Days to Meet Goals 6 Frequency of Treatment Frequency Of Treatment Once a Day Treatment Plan OT Treatment Plan ADL Training,Functional Mobility,Patient/Family Education,Discharge Planning Other Treatment Recommendations and Next LB dressing with adaptive Treatment Focus equipment Discharge Recommendations OT Discharge Recommendations Home with Assistance Transportation Needs at Discharge Private Vehicle
--- NOTE | 2020-03-23 10:50 | PC.NURSE ---
Addendum entered by Chanda Martinez R.N. 03/23/20 11:54: WOUND VAC DRSG CDI AND FUNCTIONING PROPERLY. NO AIR LEAK. OLY FLORES, PHARMACY NOTIFIED, INSTRUCTED TO HANG THIS AM DOSE AND THEY WILL ADJUST DOSAGE AFTERWARD. Original Note: PATIENT REFUSES PICC LINE PLACEMENT. STATES HAD ONE IN THE PAST AND IT WAS AWFUL. DR. GRAYSON NOTIFIED, HE SPOKE W/ PATIENT WHO CONTINUES TO REFUSE. ACCEPTED MIDLINE PIV BY DI NURSE.
[2020-03-23 11:16] LABS: Vancomycin Trough 6.4 ug/mL (10-20)
[2020-03-23] MEDS: VANCOMYCIN 1,000 MG/200 ML PIGGYBACK 200 MG IV (11:37)
[2020-03-23] MEDS: VANCOMYCIN TROUGH 1 REQUEST MISC (11:38)
--- NOTE | 2020-03-23 12:03 | DIET.PN ---
Dietary Progress Note Assessment: 59y F admitted for surgical site infection which is a chronic recurring issue referred to nutrition for irregular eating pattern and uncontrolled DM. Pt has been DM2 for 36 years since dx c GD during . Pt A1c is 12.2 and quite insulin resistant. Rx insulin protocol is 100U Lantus bid c 40-80U Humalog c meals. Pt is brittle diabetic. Pt followed by [facility] DM team. She has stabbing px she has associated c high insulin use so self-medicates c 30U Lantus in am and 25U post prandial. Pt does not take mealtime insulin prior to eating as she never knows how much she may or may not eat. Pts shops and cooks. While talking c pt, she had excellent carb counting knowledge and ability to understand insulin dosing. She endorses eating bad foods sometimes such as ramen noodles or crackers. Usual Intake: B: coffee c splenda L: nothing or tuna sandwich, chicken noodle soup c crackers D: chicken, rice, and veggies or spaghetti, or roast c potatoes Pt has her MIL c advancing dementia living in the home which is big responsibility and stressful but they are not yet ready for hospice though it has been broached in near past. Poorly controlled DM and cigarette smoking very likely contributing to repeat back infections. HT: 160cm WT: 95.5kg BMI: 37.3 Labs: A1c 12.2 H, HDL 22 L, CRP 4.8 H MNA: 12 Ted: 20 Interventions: 1. Discussed role of Vitamin C in collagen formation, that pts smoking means she needs higher intake. Pt enjoys Emergen-C, leach peppers, broccoli which all contain Vit C. Pt called her and he is shopping for these items to have on hand when she is d/c'd. 2. Discussed insulin resistance, that physical activity can help (though pt has barriers) and to ask her care team about possiblility of using intermittent fasting to decrease insulin resistance since this is almost her eating pattern now. 3. Discussed hyperglycemia and how it is a major player on why she gets repeat infections as well as yeast infections. 4. Discussed role of protein in healing from back infection. Pt willing to participate in high protein diet (goal 100g/d) while in the hospital to aid healing. 5. Recc ONS Tyrese to support healing bid Diet Order: CCD EER: 100g PRO/d (1g/kg) Monitoring/Evaluations: diet aids to monitor protein and assist pt in achieving 100g/d goal.
--- NOTE | 2020-03-23 14:40 | PT-IP ANOTE ---
Pt refused stating she has been up and down all day and would like to pass on PT today. Will check back with pt in the morning.
[2020-03-23] MEDS: SODIUM CHLORIDE 0.9% 1,000 ML 75 ML IV (14:58)
--- NOTE | 2020-03-23 17:34 | PM.PN.1 ---
Subjective Subjective Date Patient Seen: 03/23/20 Interval history: Patient is 59-year-old female with history of uncontrolled insulin dependent diabetes, obesity, smoking with recurrent lumbar abscesses presented to emergency department with increasing back pain and fevers. Patient is postop day 1. Incision and debridement of lumbar abscesses with wound VAC placement. Patient refuse PICC line placement ordered by Dr Doty but accepted a midline for IV access. Exam Vital Signs (past 8 hours): - 03/23/20 10:18 03/23/20 12:22 03/23/20 16:40 Temperature 97.0 F L 98.3 F Pulse Rate 70 97 H 75 Respiratory Rate 16 16 17 Blood Pressure 136/50 L 141/89 H Pulse Oximetry 97 98 97 Oxygen Delivery Method Room Air Oxygen Flow Rate 0 Objective Labs Result Diagrams: 03/22/20 05:50 03/21/20 23:10 Labs: Laboratory Results - last 24 hr 03/23/20 10:42 Vancomycin Trough 6.4 L Assessment & Plan Assessment & Plan narrative: Patient is 59-year-old female with history of uncontrolled insulin dependent diabetes, obesity, smoking with recurrent lumbar abscesses presented to emergency department with increasing back pain and fevers. 1. Recurrent lumbar abscess, present on admission. Active. -s/o irrigation and debridement with wound VAC placement on 03/22/2020, Dr. Doty is planning to take her back to the OR on Thursday for washout and hopefully closure -Patient with significant co-morbidities including poorly controlled diabetes mellitus with risk of recurrent infections who presented with lumbar back pain and found to have recurrent lumbar abscesses. She has history of prior lumbar surgeries. -MRI of the lumbar spine finds a 7.9 by 4.6 x 5 cm thick walled fluid collection in the left posterior paraspinous region at L4 in the subcutaneous compartment. -patient with initial elevated white count at 15.8, CRP of 4.8, procalcitonin 0.18. -her cultures are negative and previous cultures have not grown anything -Continue vancomycin and Rocephin 2. Diabetes mellitus type II, insulin-dependent, uncontrolled with hyperglycemia, present on admission, active -patient with a glucose of 530 on admission labs. Anion gap is 12 without acidosis. Marked hyperglycemia likely a factor in recurrent infections. -the patient has a history of significant insulin resistance and has previously been prescribed Lantus 100 units twice daily and had been receiving nutritional insulin between 40 and 80 units daily. -the patient reports developing profound muscle cramping secondary to insulin. The patient has significant cut back her insulin use to Lantus 30 units daily and mealtime insulin to 20 units. The patient takes metformin 500 mg twice daily. The patient is resistant to changes in medication management. -Hemoglobin A1C 12.2 % indicative of poor glycemic control. -Continue home lantus 30 units in the morning, nutritional insulin 20 units every 6 hours while the patient is NPO then a.c. and HS. Hold nutritional insulin if blood glucose < 100. -Continue gabapentin 600 mg three times daily. -were unable to adequately address patient's blood sugars during this admission due to her refusal to take additional insulin 3. Hypertension, chronic, present on admission, stable -Continue lisinopril 20 mg and 0.5 tablet of triamterene-hydrochlorothiazide 37.5/25 mg 4. Hyperlipidemia, chronic, present on admission. Stable. -patient has been taking atorvastatin as needed, Continue atorvastatin 20 mg daily at bedtime. 5. Current smoker with asthma, chronic, present on admission, stable. -patient with a history of asthma and chronic smoker and describes wheezing associated with exposure to allergens. -no current complaints of shortness of breath coughing or wheezing. -albuterol ipratropium inhaler 2 puffs twice daily, albuterol inhaler 2 puffs every 4 hours as needed. 6. Morbid obesity, chronic, present on admission. Stable. -BMI 39.7 -requested dietitian consult for uncontrolled diabetes with hyperglycemia and, irregular eating pattern. 7. Depression, chronic, present on admission. Stable. -Continue sertraline 150 mg daily.
[2020-03-23] MEDS: ONDANSETRON 4 MG/2 ML INJ IV (18:19)
[2020-03-23] MEDS: ATORVASTATIN 20 MG TABLET PO (20:55)
[2020-03-23] MEDS: SENNOSIDES 8.6 MG TABLET 17.2 MG PO (20:55)
[2020-03-23] MEDS: ASPIRIN EC 81 MG TABLET PO (20:55)
[2020-03-23] MEDS: VANCOMYCIN 1,500 MG/300 ML FROZ.PIGGY 200 MG IV (22:14)
[2020-03-23] MEDS: ALBUTEROL 2.5 MG/3 ML NEB (ADULT) INH (22:21)
[2020-03-23] MEDS: NICOTINE 14 PATCH 14 MG TOP (23:36)
[2020-03-23] MEDS: MELATONIN 3 MG TABLET 6 MG PO (23:36)
[2020-03-24] VITALS (22 sets, daily range): BP systolic 126–173; BP diastolic 47–76; PULSE 60–83; RESP 8–19; TEMP 35.9–36.9; O2SAT 94–100; BMI 37.3
[2020-03-24] MEDS: hydrOXYzine pamoate 25 MG CAPSULE PO (03:19)
[2020-03-24] MEDS: CEFTRIAXONE 2 GM/50 ML FROZ.PIGGY IV (03:19)
[2020-03-24] MEDS: OXYCODONE IR 10 MG TABLET PO ×5 (03:19→23:46)
[2020-03-24] MEDS: SODIUM CHLORIDE 0.9% 1,000 ML 75 ML IV (04:58)
--- NOTE | 2020-03-24 05:57 | PC.NURSE ---
Pt is AxOx3, Hypertensive. Complaints of severe back pain, given oxycodone and vistaril Wound Vac to back is functioning well at 125mmHg continuous suction Kept NPO for Sx this morning NS@75mL/hr 1p FWW BSC Fingerstick overnight 184 Refused SCDs, educated on DVT/stroke risks and verbalized understanding Midline to LUE is clean, dry, intact
[2020-03-24] MEDS: INSULIN ASPART 100 UNIT/ML INSULN PEN 20 UNIT SUBCUT ×3 (07:46→21:30)
[2020-03-24] MEDS: LACTATED RINGERS 1,000 ML 42 ML IV (07:56)
--- NOTE | 2020-03-24 09:01 | PM.OP.1 ---
Operative Date/Time/Diagnoses Date of procedure: 03/24/20 Time of procedure: 09:01 Pre-op diagnosis: Lumbar wound infection Post-op diagnosis: same Procedure & Clinicians Procedure: Incisional debridement and irrigation of lumbar wound infection through superficial tissue down to the muscle fascia. Same procedure as scheduled: Yes Indications: 59-year-old female with a recurrent lumbar abscess. She was washed out 2 days ago and had a wound VAC placed. It was felt she needed return trip for repeat washout and closure. Risks and benefits of surgery discussed appropriate consents obtained. Surgeon: Luca Doty Click Yes if Unassisted: Yes Anesthesia Type: General Operative Notes Findings: None Closure Type: primary Specimen(s): other (Wound culture) Estimated Blood Loss (mL): 5 Procedure in detail: Patient brought the operating room and intubated on the stretcher. She was rolled over to the well-padded prone position on the Juan J table. The wound VAC was removed. The back was prepped and draped in standard sterile fashion. Time-out was performed. Antibiotics were held for culture results. We swab of the wound and sent that to microbiology. We then used a sharp Su to sharply debride the superficial tissue as well as down to and including the muscle fascia. This did not appear to have any extension deeper past the muscle fascia. There was minimal evidence of any questionable tissue, this was almost a good granulation tissue from the wound VAC. The wound was then copiously irrigated. A deep drain was placed. The superficial tissue was closed in layers. Retention sutures were placed to the skin. Sterile dressing was placed. She was rolled over, extubated, brought recovery with no complications. Complications: none Post-operative Condition: stable Disposition: PACU Plan for aftercare: Inpatient. Continue IV antibiotics. Waiting on culture results.
[2020-03-24] MEDS: fentaNYL 100 MCG/2 ML INJ IV ×4 (09:07→09:39)
--- NOTE | 2020-03-24 09:13 | PM.PNPO.1 ---
Subjective Subjective Date Patient Seen: 03/24/20 Time Patient Seen: 09:13 Interval history: in pacu Exam Vital Signs (past 8 hours): - 03/24/20 03:36 03/24/20 07:52 03/24/20 08:55 Temperature 97.3 F L 97.1 F L 96.8 F L Pulse Rate 77 60 83 Respiratory Rate 18 17 19 Blood Pressure 150/71 H 126/55 L 173/69 H Pulse Oximetry 99 98 94 03/24/20 09:00 03/24/20 09:05 Temperature 96.8 F L Pulse Rate 76 77 Respiratory Rate 9 L 11 L Blood Pressure 154/59 H 135/48 L Pulse Oximetry 95 100 Oxygen Delivery Method Room Air Oxygen Flow Rate 0 Objective Labs Result Diagrams: 03/22/20 05:50 03/21/20 23:10 Labs: Laboratory Results - last 24 hr 03/23/20 10:42 Vancomycin Trough 6.4 L Assessment & Plan Post-op Postoperative Procedures: Procedures Operation Date: 03/22/20 14:30 Actual Procedures Side Surgeon p Incision and Drainage Wound/Spine Luca Doty MD Operation Date: 03/24/20 08:00 Actual Procedures Side Surgeon p Incision and Drainage Lumbar Spine Luca Doty MD She has never grown anything from her hospital cultures. However, I went back in her office chart. Dr Lombardo had aspirated her fluid collection in clinic on 07/22/19 (prior to me washing out her wound later that week). We have a final culture with growth a week later in the lab section that shows C acnes. She had gram positive cocci and rods on her gram stain 2 days ago. I think with her delayed recurrent infection that C acnes needs to be considered as a possible pathogen. I did start her on doxycycline today. We are still awaiting culture results from this hospitalization.
[2020-03-24] MEDS: HYDROMORPHONE 2 MG INJ 0.5 MG IV ×2 (09:33→09:42)
[2020-03-24] MEDS: INSULIN ASPART 100 UNIT/ML INSULN PEN 15 UNIT SUBCUT (09:43)
--- NOTE | 2020-03-24 10:23 | SUR.PHASEI ---
pt transferred to acute care floor in stable condition. pt alert and talking to RN during transport. Bedside report given to receiving RN and transferred care of pt to receiving RN at that time.
--- NOTE | 2020-03-24 10:44 | PC.NURSE ---
Addendum entered by Maya Mac R.N. 03/24/20 14:37: Patient given benadryl for complaints of itch and also medicated with oxycodone earlier. She is comfortable. Original Note: Patient back from surgery. She had her incision closed up and does not have a wound vac now. Gauze dressing and tegaderm intact, patient denies pain at present time. She is getting up to use the commode. Will get her po medication and iv antibiotic hanging. BS 255 this am. 20u given down in PACU and another 15u after surgery as BS was 258. Patient does not manage her diabetes well at home. She has been consistently in the 300s.
--- NOTE | 2020-03-24 11:19 | PT.IPTN ---
Current Diagnoses Infection following a procedure, superficial incisional surgical site, initial encounter (03/22/20) Surgery Performed Operation Date: 03/22/20 14:30 Actual Procedures p Incision and Drainage Wound/Spine - Luca Doty MD Operation Date: 03/24/20 08:00 Actual Procedures p Incision and Drainage Lumbar Spine - Luca Doty MD Physical Therapy Treatment Note M2 PT-IP Current Condition Start: 03/22/20 10:44 Freq: NEEDED Status: Active Protocol: Document 03/22/20 10:03 AB (Rec: 03/22/20 10:54 AB [id number]) Physical Therapy Current Condition Current Condition Evaluation Date 03/22/20 Treatment Diagnosis back infection; difficulty in walking Onset Date 03/22/20 Precautions Lumbar Precautions Log Roll,No Twisting,Limit Bending,Lifting Restriction of 10 lbs,Gait Belt above Incisional Area M3 PT-IP Subjective Start: 03/22/20 10:44 Freq: NEEDED Status: Active Protocol: Document 03/24/20 11:19 CLB (Rec: 03/24/20 12:08 CLB [id number]) Subjective Physical Therapy Visit Type Type Treatment Note Visit Start Time 11:19 Visit Stop Time 11:39 Total Visit Minutes 20 Number of EMD SPECIAL EDUCATION TEACHER Visits 1 Physical Therapy Visit Comments Patient Comments pt agreeable to do PT but refused a gait belt. Therapy Pain Assessment Pain When Pain Assessed At Rest M4 PT-IP Mobility and Gait Start: 03/22/20 10:44 Freq: NEEDED Status: Active Protocol: Document 03/24/20 11:19 CLB (Rec: 03/24/20 12:08 CLB [id number]) PT-Transfer Assessment Sit to and From Stand Sit to and from Stand Standby Assistance Equipment Transfer Assistive Device Gait Belt,Straight Cane Orthotic/Prosthetic Devices or Brace: No Comments Mobility Comments Pt recalled back precautions. Pt on EOB upon arrival, pt stood from bed SBA and ambulated in garcia ~300ft with SBA and SPC. Gait Assessment Gait Gait Assistance Required: Standby Assistance Distance (Feet) 300 Able to Maintain Weight Bearing Status Yes During Gait Assistive Devices Assistive Device Gait Belt,Straight Cane Orthotic/Prosthetic Devices or Brace: No Gait Deviations General Gait Pattern Decreased Stride Length, Decreased Feet Clearance Factors Limiting Gait Function Factors Limiting Gait Function Pain Comments Gait Comments Pt is SBA for all mobility. PT-Balance Assessment Sitting Balance and Reactions Static Sitting Balance Ability Normal Dynamic Sitting Balance Ability Normal Standing Balance and Reactions Static Standing Balance Ability Fair Dynamic Standing Balance Ability Fair Device Used SPC M5 PT-IP Objective Assessments Start: 03/22/20 10:44 Freq: NEEDED Status: Active Protocol: Document 03/22/20 10:03 AB (Rec: 03/22/20 10:54 AB [id number]) Orientation Orientation/Cognition Level of Alertness Alert Orientation Name,Place,Situation Language Function Ability No Deficits Noted Memory Description No Deficits Noted Gross Range of Motion Lower Extremity ROM Assessment Within Functional Limits Strength Lower Extremity Strength Assessment Within Functional Limits Coordination Assessment Gross Coordination Gross Coordination WNL Muscle Tone Muscle Tone WNL Yes M6 PT-IP Treatment Start: 03/22/20 10:44 Freq: NEEDED Status: Active Protocol: Document 03/22/20 10:03 AB (Rec: 03/22/20 10:54 AB [id number]) Physical Therapy Treatment Education Education Provided Precautions,Safety M7 PT-IP Assessment and Plan Start: 03/22/20 10:44 Freq: NEEDED Status: Active Protocol: Document 03/24/20 11:19 CLB (Rec: 03/24/20 12:08 CLB [id number]) PT Summary Assessment and Plan Potential Rehabilitation Potential Good Status of Condition at Evaluation Stable Summary Impairments Pain,Balance,Bed Mobility, Transfers,Gait,Activity Tolerance Assessment Summary Pt demonstrates good dynamic balance and is modified independent. This EMD SPECIAL EDUCATION TEACHER discussed pt with PT and pt will be discharged due to pt progress with mobility. This EMD SPECIAL EDUCATION TEACHER discussed discharge with pt and pt stated understanding and agreed. RN notified. Goals Bed Mobility Goal Independent Transfer Goal Independent,Cane Gait Goal Independent,Cane Gait Distance 350 Other Goals up/down 12 steps bilateral rails mod I Days to Meet Goals 5 Frequency of Treatment Frequency Of Treatment Discharge Treatment Plan Physical Therapy Treatment Plan Bed Mobility Training,Transfer Training,Gait Training, Therapeutic Exercise,Balance Retraining,Post Op Education, Discharge Planning,Hot or Cold Pack,Neuromuscular Re-ed Recommendations To Nursing Amount of Assist Needed 1 Person Assist Discharge Recommendations PT Discharge Recommendations Home with Assistance Transportation Needs at Discharge Private Vehicle
[2020-03-24] MEDS: VANCOMYCIN 1,500 MG/300 ML FROZ.PIGGY 200 MG IV (11:37)
[2020-03-24] MEDS: LORATADINE 10 MG TABLET PO (12:25)
[2020-03-24] MEDS: METFORMIN HCL 500 MG TABLET PO ×2 (12:25→17:01)
[2020-03-24] MEDS: INSULIN GLARGINE 100 UNIT/ML 3ML PEN 30 UNIT SUBCUT (12:26)
[2020-03-24] MEDS: INSULIN ASPART 100 UNIT/ML INSULN PEN SUBCUT ×2 (12:27→17:02)
[2020-03-24] MEDS: DOXYCYCLINE 100 MG in SODIUM CHLORIDE 0.9% 100 ML IV ×2 (14:07→22:30)
[2020-03-24] MEDS: diphenhydrAMINE 25 MG TABLET PO ×2 (14:08→19:39)
[2020-03-24] MEDS: GABAPENTIN 600 MG TABLET PO ×2 (14:08→21:38)
--- NOTE | 2020-03-24 14:53 | PM.PN.1 ---
Subjective Subjective Date Patient Seen: 03/24/20 Interval history: Patient is a 59-year-old female with type 2 diabetes, hyperlipidemia, obesity who is admitted to the hospital for recurrent lumbar abscesses. Dr. Doty has reviewed prior culture results and found in organism that is sensitive to doxycycline. Patient has been placed on doxycycline. Her pain is continued to be present but somewhat controlled. Patient has elevated blood sugars. However she indicates that she has a diabetic team in [facility] that she is working with to gradually adjust her insulin for improved blood sugar control. She is sitting up to a chair eating lunch at this time. Patient reports some back pain, she also has had some nausea associated with the narcotic pain medication. Exam Vital Signs (past 8 hours): - 03/24/20 07:52 03/24/20 08:55 03/24/20 09:00 Temperature 97.1 F L 96.8 F L 96.8 F L Pulse Rate 60 83 76 Respiratory Rate 17 19 9 L Blood Pressure 126/55 L 173/69 H 154/59 H Pulse Oximetry 98 94 95 03/24/20 09:05 03/24/20 09:10 03/24/20 09:20 Temperature Pulse Rate 77 72 69 Respiratory Rate 11 L 19 17 Blood Pressure 135/48 L 128/58 L 147/56 H Pulse Oximetry 100 100 98 03/24/20 09:35 03/24/20 09:45 03/24/20 09:50 Temperature 96.9 F L Pulse Rate 66 71 66 Respiratory Rate 9 L 8 L 10 L Blood Pressure 144/53 H 132/53 L 143/47 H Pulse Oximetry 100 100 100 03/24/20 09:59 03/24/20 10:06 03/24/20 10:12 Temperature 97.2 F L Pulse Rate 70 68 70 Respiratory Rate 12 12 12 Blood Pressure 140/73 141/50 H 140/53 L Pulse Oximetry 98 97 95 03/24/20 10:15 03/24/20 10:45 03/24/20 11:15 Temperature 98 F 97.4 F L 97.9 F Pulse Rate 75 71 70 Respiratory Rate 16 17 17 Blood Pressure 153/75 H 147/71 H 151/76 H Pulse Oximetry 97 97 97 03/24/20 12:15 03/24/20 13:32 Temperature 98.4 F 97.7 F Pulse Rate 79 71 Respiratory Rate 17 18 Blood Pressure 142/60 H 156/71 H Pulse Oximetry 97 98 Oxygen Delivery Method Room Air Oxygen Flow Rate 0 Narrative Exam Narrative: Pleasant female sitting up in a chair in no acute distress Lungs: Clear to auscultation Cardiac exam: Regular rate and rhythm normal S1-S2 Abdomen: Soft and nontender Back: Drain in place, dressing in place, no exudate noted Lower extremities: No edema Objective Labs Result Diagrams: 03/22/20 05:50 03/21/20 23:10 Assessment & Plan Assessment & Plan narrative: Assessment & Plan narrative: Patient is 59-year-old female with history of uncontrolled insulin dependent diabetes, obesity, smoking with recurrent lumbar abscesses presented to emergency department with increasing back pain and fevers. 1. Recurrent lumbar abscess, present on admission. Active. -s/o irrigation and debridement with wound VAC placement on 03/22/2020, Dr. Doty is planning to take her back to the OR on Thursday for washout and hopefully closure -Patient with significant co-morbidities including poorly controlled diabetes mellitus with risk of recurrent infections who presented with lumbar back pain and found to have recurrent lumbar abscesses. She has history of prior lumbar surgeries. -MRI of the lumbar spine finds a 7.9 by 4.6 x 5 cm thick walled fluid collection in the left posterior paraspinous region at L4 in the subcutaneous compartment. -patient with initial elevated white count at 15.8, CRP of 4.8, procalcitonin 0.18. -her cultures are negative and previous cultures have not grown anything -Continue vancomycin and Rocephin, doxycycline added to her regimen -consider outpatient infectious disease consultation 2. Diabetes mellitus type II, insulin-dependent, uncontrolled with hyperglycemia, present on admission, active -patient with a glucose of 530 on admission labs. Anion gap is 12 without acidosis. Marked hyperglycemia likely a factor in recurrent infections. -the patient has a history of significant insulin resistance and has previously been prescribed Lantus 100 units twice daily and had been receiving nutritional insulin between 40 and 80 units daily. -the patient reports developing profound muscle cramping secondary to insulin. The patient has significant cut back her insulin use to Lantus 30 units daily and mealtime insulin to 20 units. The patient takes metformin 500 mg twice daily. The patient is resistant to changes in medication management. -Hemoglobin A1C 12.2 % indicative of poor glycemic control. -Continue home lantus 30 units in the morning, nutritional insulin 20 units every 6 hours while the patient is NPO then a.c. and HS. Hold nutritional insulin if blood glucose < 100. -Continue gabapentin 600 mg three times daily. -were unable to adequately address patient's blood sugars during this admission due to her refusal to take additional insulin -patient currently working with a diabetic team in [facility]. Will continue her home regimen. Patient will be referred back to her video tape transferrer and diabetic team for management of blood sugars 3. Hypertension, chronic, present on admission, stable -Continue lisinopril 20 mg and 0.5 tablet of triamterene-hydrochlorothiazide 37.5/25 mg 4. Hyperlipidemia, chronic, present on admission. Stable. -patient has been taking atorvastatin as needed, Continue atorvastatin 20 mg daily at bedtime. 5. Current smoker with asthma, chronic, present on admission, stable. -patient with a history of asthma and chronic smoker and describes wheezing associated with exposure to allergens. -no current complaints of shortness of breath coughing or wheezing. -albuterol ipratropium inhaler 2 puffs twice daily, albuterol inhaler 2 puffs every 4 hours as needed. 6. Morbid obesity, chronic, present on admission. Stable. -BMI 39.7 -requested dietitian consult for uncontrolled diabetes with hyperglycemia and, irregular eating pattern. 7. Depression, chronic, present on admission. Stable. -Continue sertraline 150 mg daily. The patient is recovering nicely, anticipate discharge home when okay with Dr. Doty. Will continue to follow with you.
[2020-03-24] MEDS: ALBUTEROL/IPRATROPIUM MDI 2 PUFF INH (16:52)
[2020-03-24] MEDS: SENNOSIDES 8.6 MG TABLET 17.2 MG PO (21:37)
[2020-03-24] MEDS: AMOXICILLIN/CLAV 875/125 MG 1 TAB PO (21:37)
[2020-03-24] MEDS: DOCUSATE 100 MG CAPSULE PO (21:37)
[2020-03-24] MEDS: ASPIRIN EC 81 MG TABLET PO (21:37)
[2020-03-24] MEDS: ATORVASTATIN 20 MG TABLET PO (21:37)
[2020-03-24] MEDS: MELATONIN 3 MG TABLET 6 MG PO (21:38)
[2020-03-24] MEDS: ONDANSETRON 4 MG/2 ML INJ IV (21:49)
[2020-03-24] MEDS: BENZOCAINE/MENTHOL 1 LOZ PKT 1 EACH PO (23:46)
[2020-03-25] VITALS (8 sets, daily range): BP systolic 128–156; BP diastolic 49–80; PULSE 66–78; RESP 16–20; TEMP 36–37.2; O2SAT 93–99
[2020-03-25] MEDS: diphenhydrAMINE 25 MG TABLET PO ×2 (01:47→20:36)
[2020-03-25 06:12] LABS: Add Manual Diff / Slide Review NO; Basophils Absolute Auto 100 /uL (0-100); Basophils Percent Auto 0.7 % (0-2); Eosinophils Absolute Auto 200 /uL (0-450); Eosinophils Percent Auto 2.6 % (2-4); Hematocrit 31.4 % (36-46); Hemoglobin 10.4 g/dL (12.0-16.0); Lymphocytes Absolute Auto 2000 /uL (1100-4500); Lymphocytes Percent Auto 21.2 % (25-40); Mean Corpuscular HGB Conc 33.1 % (30-36); Mean Corpuscular Hemoglobin 27.6 PG (26-34); Mean Corpuscular Volume 83.3 fL (80-100); Monocytes Absolute Auto 700 /uL (0-900); Neutrophils Absolute Auto 6500 /uL (1500-7000); Neutrophils Percent Auto 68.5 % (50-75); Platelet Count 426 X10^3/uL (150-400); Red Blood Cell Count 3.77 X10^6/uL (4.0-5.2); Red Cell Distribution Width 16.4 % (11.6-14.8); White Blood Cell Count 9.5 X10^3/uL (4.5-11.0)
[2020-03-25 06:24] LABS: BUN Creatinine Ratio 41.1 (6-22); Blood Urea Nitrogen 23 mg/dL (7-17); Calcium 9.1 mg/dL (8.4-10.2); Carbon Dioxide 24 mmol/L (22-32); Chloride 106 mmol/L (98-107); Estimated Glomerular Filt Rate > 60.0 mL/min (>60); Glucose 251 mg/dL (70-100); HEMOLYSIS < 15 (0-50); Sodium 137 mmol/L (137-145)
[2020-03-25] MEDS: ALBUTEROL/IPRATROPIUM MDI 2 PUFF INH ×2 (07:58→20:05)
[2020-03-25] MEDS: INSULIN GLARGINE 100 UNIT/ML 3ML PEN 30 UNIT SUBCUT (08:12)
[2020-03-25] MEDS: INSULIN ASPART 100 UNIT/ML INSULN PEN 20 UNIT SUBCUT ×4 (08:13→20:41)
[2020-03-25] MEDS: INSULIN ASPART 100 UNIT/ML INSULN PEN SUBCUT ×3 (08:14→16:58)
[2020-03-25] MEDS: NICOTINE 14 PATCH 14 MG TOP (08:30)
[2020-03-25] MEDS: LORATADINE 10 MG TABLET PO (08:32)
[2020-03-25] MEDS: DOCUSATE 100 MG CAPSULE PO ×2 (08:32→20:35)
[2020-03-25] MEDS: ASPIRIN EC 81 MG TABLET PO (08:32)
[2020-03-25] MEDS: GABAPENTIN 600 MG TABLET PO ×3 (08:32→20:35)
[2020-03-25] MEDS: METFORMIN HCL 500 MG TABLET PO ×2 (08:32→16:58)
[2020-03-25] MEDS: OXYCODONE IR 10 MG TABLET PO (08:32)
[2020-03-25] MEDS: AMOXICILLIN/CLAV 875/125 MG 1 TAB PO (08:34)
--- NOTE | 2020-03-25 08:36 | PM.PNPO.1 ---
Subjective Subjective Date Patient Seen: 03/25/20 Time Patient Seen: 08:36 Interval history: She is doing better. Up and walking around. Pain is under good control. Exam Vital Signs (past 8 hours): - 03/25/20 04:30 03/25/20 08:08 Temperature 97.3 F L Pulse Rate 72 74 Respiratory Rate 18 16 Blood Pressure 142/61 H Pulse Oximetry 99 97 Oxygen Delivery Method Room Air Oxygen Flow Rate 0 Const Orientation: alert and oriented x3 Back/Spine/Pelvis Other: CDI. Drain output 5/5 Objective Labs Result Diagrams: 03/25/20 05:21 03/25/20 05:21 Labs: Laboratory Results - last 24 hr 03/25/20 03/25/20 05:21 05:21 WBC 9.5 RBC 3.77 L Hgb 10.4 L Hct 31.4 L MCV 83.3 MCH 27.6 MCHC 33.1 RDW 16.4 H Plt Count 426 H Neut % (Auto) 68.5 Lymph % (Auto) 21.2 L Reynolds % (Auto) 7.0 Eos % (Auto) 2.6 Baso % (Auto) 0.7 Neut # (Auto) 6500 Lymph # (Auto) 2000 Reynolds # (Auto) 700 Eos # (Auto) 200 Baso # (Auto) 100 Sodium 137 Potassium 4.0 D Chloride 106 Carbon Dioxide 24 BUN 23 H Creatinine 0.56 Estimated GFR > 60.0 BUN/Creatinine Ratio 41.1 H Glucose 251 H D Calcium 9.1 Assessment & Plan Post-op Postoperative Procedures: Procedures Operation Date: 03/22/20 14:30 Actual Procedures Side Surgeon p Incision and Drainage Wound/Spine Luca Doty MD Operation Date: 03/24/20 08:00 Actual Procedures Side Surgeon p Incision and Drainage Lumbar Spine Luca Doty MD she is doing better. Still awaiting any culture growth the for now continue vancomycin, Rocephin, doxycycline. I recommend an Infectious Disease consult tomorrow with the [facility] infectious disease specialists, with planned follow-up with them afterwards. She is most likely going to need prison for IV antibiotics. I did explain the patient that everything appeared to be clear after the washout. Her infections have always been superficial with no evidence of any tracking down through the muscle down to the hardware. However, if this infection returns, she would be looking at a hardware removal the next time, even if everything still appears superficial.
[2020-03-25] MEDS: NICOTINE 21 MG PATCH TOP (10:27)
[2020-03-25] MEDS: CEFTRIAXONE 2 GM/50 ML FROZ.PIGGY IV (10:27)
--- NOTE | 2020-03-25 10:32 | CM.DPC ---
DCP/continued: Received notification from Dr. Doty this AM that patient most likely will need IV abx x6wks. Provider unclear on medication and frequency at this time. He plans to coordinate with hospitalist and ID. Met with patient explained CM/SW role. Patient reports that she has no intention of going to SNF for IV abx therapy. Patient prefers to go out on po abx. Patient does not have secondary that will case picker the cost of IV abx at home. Patient agreeable to go outpatient but only has ability to go late afternoon or evening. Patient does not drive, would need to rely on spouse. Patient does report that as outpatient she often sees Dr. Bain at [facility] in [place] ph# [phone]. She reports that this might be a try in assistance for home IV therapy if absolutely needed. Again, patient would prefer going home po abx. Dr. Kaplan updated in AM rounds and plans to discuss with ID and Dr. Doty. P: Pending. Patient wants to go home when stable. Has no desire to go to SNF. Medicare choice list left for both SNF's and HH agencies. P: CM team to follow closely. DRU Smith
[2020-03-25] MEDS: VANCOMYCIN 1,500 MG/300 ML FROZ.PIGGY 200 MG IV (11:17)
--- NOTE | 2020-03-25 12:00 | OT.IP.TRT ---
Current Diagnoses Infection following a procedure, superficial incisional surgical site, initial encounter (03/22/20) Surgery Performed Operation Date: 03/22/20 14:30 Actual Procedures p Incision and Drainage Wound/Spine - Luca Doty MD Operation Date: 03/24/20 08:00 Actual Procedures p Incision and Drainage Lumbar Spine - Luca Doty MD Occupational Therapy Treatment Note M2 OT-IP Current Condition Start: 03/22/20 12:49 Freq: Status: Active Protocol: Document 03/22/20 11:15 CCC (Rec: 03/22/20 13:07 [facility] [id number]) Occupational Therapy Current Condition Current Condition Evaluation Date 03/22/20 Treatment Diagnosis Recurrent superficial Lumbar abscess Diagnosis Onset Date 03/22/20 Weight Bearing Status Weight Bearing Status Weight Bear as Tolerated M3 OT- IP Subjective and Pain Start: 03/22/20 12:49 Freq: Status: Active Protocol: Document 03/25/20 12:47 CGR (Rec: 03/25/20 12:48 CGR [id number]) OT- Subjective Occupational Therapy Visit Type Type Administrative Note Notes Talked with pt. Pt states she feels she is at her baseline with slightly increased pain. Pt and therapist in agreement to discharge OT services at this time. No further OT needs .
--- NOTE | 2020-03-25 12:25 | PC.NURSE ---
Addendum entered by Maya Mac R.N. 03/25/20 14:21: Patient is going to be starting a new antibiotic, Dapto. Just given a 5mg oxycodone and patient is resting comfortably. Original Note: Patient states that she should be on 21mcg nicotine patch, and not 14mcg as she has been in the hospital. Phoned and she did change order to 21mcg. 14mcg patched removed from r.arm and 21mcg patch placed to l.upper arm. Patients back dressing is cdi, she has a hemovac putting out minimal bloody drainage. BS this am in the 200s all insulin given. Lunch time blood sugar 318, 27u of fast acting given. Patient is up with 1 person assist and walker, she is weak but is moving decent, she is slow. ML to LUE wnl and patient is getting iv antibiotics. She is pleasant to work with and likes to talk alot. Skin with some bruising, abrasion, and calluses. Sitting up in chair and eating her lunch. She is content.
--- NOTE | 2020-03-25 12:38 | P.PN_ITS ---
Subjective Subjective Date Patient Seen: 03/25/20 Interval history: Patient is a 59-year-old female admitted to the hospital for recurrent lumbar abscess. She is growing Cuti A. Exam Vital Signs (past 8 hours): - 03/25/20 07:55 03/25/20 08:08 Temperature 98.9 F Pulse Rate 66 74 Respiratory Rate 16 16 Blood Pressure 141/55 H Pulse Oximetry 97 97 Oxygen Delivery Method Room Air Oxygen Flow Rate 0 Objective Labs Result Diagrams: 03/25/20 05:21 03/25/20 05:21 Labs: Laboratory Results - last 24 hr 03/25/20 03/25/20 05:21 05:21 WBC 9.5 RBC 3.77 L Hgb 10.4 L Hct 31.4 L MCV 83.3 MCH 27.6 MCHC 33.1 RDW 16.4 H Plt Count 426 H Neut % (Auto) 68.5 Lymph % (Auto) 21.2 L Mcpherson % (Auto) 7.0 Eos % (Auto) 2.6 Baso % (Auto) 0.7 Neut # (Auto) 6500 Lymph # (Auto) 2000 Mcpherson # (Auto) 700 Eos # (Auto) 200 Baso # (Auto) 100 Sodium 137 Potassium 4.0 D Chloride 106 Carbon Dioxide 24 BUN 23 H Creatinine 0.56 Estimated GFR > 60.0 BUN/Creatinine Ratio 41.1 H Glucose 251 H D Calcium 9.1
[2020-03-25] MEDS: DOXYCYCLINE 100 MG in SODIUM CHLORIDE 0.9% 100 ML IV (12:49)
--- NOTE | 2020-03-25 13:11 | P.PN_ITS ---
Subjective Subjective Date Patient Seen: 03/25/20 Interval history: Patient is 59-year-old female who has recurrent lumbar abscesses follow sling lumbar surgery. Her wound has grown Cuti. Acnes previous. All wound cultures have been negative to date. Patient is currently on ceftriaxone, Augmentin, vancomycin, and doxycycline. She has it wound drain in place. Patient does not want to go to senior living. She also prefers to have a midline instead of PICC line for IV antibiotics. She desires to either have outpatient antibiotics or home antibiotics. Patient denies any diarrhea Exam Vital Signs (past 8 hours): - 03/25/20 07:55 03/25/20 08:08 Temperature 98.9 F Pulse Rate 66 74 Respiratory Rate 16 16 Blood Pressure 141/55 H Pulse Oximetry 97 97 Oxygen Delivery Method Room Air Oxygen Flow Rate 0 Narrative Exam Narrative: Pleasant female in no acute distress Lungs: Clear to auscultation Cardiac exam: Regular rate and rhythm normal S1-S2 Abdomen: Obese soft nontender nondistended Back: Wound and dressing is dry, JESUS drain in place Extremities: No edema Objective Labs Result Diagrams: 03/25/20 05:21 03/25/20 05:21 Labs: Laboratory Results - last 24 hr 03/25/20 03/25/20 05:21 05:21 WBC 9.5 RBC 3.77 L Hgb 10.4 L Hct 31.4 L MCV 83.3 MCH 27.6 MCHC 33.1 RDW 16.4 H Plt Count 426 H Neut % (Auto) 68.5 Lymph % (Auto) 21.2 L Mckean % (Auto) 7.0 Eos % (Auto) 2.6 Baso % (Auto) 0.7 Neut # (Auto) 6500 Lymph # (Auto) 2000 Mckean # (Auto) 700 Eos # (Auto) 200 Baso # (Auto) 100 Sodium 137 Potassium 4.0 D Chloride 106 Carbon Dioxide 24 BUN 23 H Creatinine 0.56 Estimated GFR > 60.0 BUN/Creatinine Ratio 41.1 H Glucose 251 H D Calcium 9.1 Assessment & Plan Assessment & Plan narrative: Assessment & Plan narrative: Assessment & Plan narrative: Patient is 59-year-old female with history of uncontrolled insulin dependent diabetes, obesity, smoking with recurrent lumbar abscesses presented to emergency department with increasing back pain and fevers. 1. Recurrent lumbar abscess, present on admission. Active. Wound cultures negative today Gram stain growing Gram-positive cocci and Gram-positive rods Prior culture grew Cuti.Acnes ( Jun 2019) Will send cultures to [facility] for PCR testing for AFB, fungal, and bacterial cultures Will discontinue ceftriaxone, Augmentin, vancomycin Will start daptomycin 8 micrograms/kilogram every 24 hours until PCR studies are back Patient will continue antibiotics as an outpatient at [facility] 2. Diabetes mellitus type II, insulin-dependent, uncontrolled with hyperglycemia, present on admission, active -although blood sugar control is suboptimal patient is currently being followed in [place] by Diabetic team, with plans to slowly titrate up her dose -will continue current treatment -patient follow-up as an outpatient for further evaluation and management of blood sugar 3. Hypertension, chronic, present on admission, stable -Continue lisinopril 20 mg and 0.5 tablet of triamterene-hydrochlorothiazide 37.5/25 mg 4. Hyperlipidemia, chronic, present on admission. Stable. -patient has been taking atorvastatin as needed, Continue atorvastatin 20 mg daily at bedtime. 5. Current smoker with asthma, chronic, present on admission, stable. -patient with a history of asthma and chronic smoker and describes wheezing associated with exposure to allergens. -no current complaints of shortness of breath coughing or wheezing. -albuterol ipratropium inhaler 2 puffs twice daily, albuterol inhaler 2 puffs every 4 hours as needed -add nicotine patch 21 mcg daily. 6. Morbid obesity, chronic, present on admission. Stable. -BMI 39.7 -requested dietitian consult for uncontrolled diabetes with hyperglycemia and, irregular eating pattern. 7. Depression, chronic, present on admission. Stable. -Continue sertraline 150 mg daily. Discharge home once recovered from surgery. Plan is to continue IV antibiotics with daptomycin daily until PCR results are obtained.
[2020-03-25] MEDS: OXYCODONE IR 5 MG TABLET PO ×2 (14:05→20:36)
[2020-03-25] MEDS: SODIUM CHLORIDE 0.9% IV (14:30)
[2020-03-25] MEDS: DAPTOMYCIN IV (14:30)
[2020-03-25] MEDS: FLUCONAZOLE 100 MG TABLET PO (16:58)
[2020-03-25 20:17] LABS: Creatine Kinase 80 U/L (30-135)
[2020-03-25] MEDS: ATORVASTATIN 20 MG TABLET PO (20:35)
[2020-03-25] MEDS: MELATONIN 3 MG TABLET 6 MG PO (20:35)
[2020-03-25] MEDS: SENNOSIDES 8.6 MG TABLET 17.2 MG PO (20:35)
[2020-03-25] MEDS: BENZOCAINE/MENTHOL 1 LOZ PKT 1 EACH PO (22:03)
[2020-03-26] MEDS: METOCLOPRAMIDE 10 MG/2 ML INJ IV (00:15)
[2020-03-26 00:30] VITALS: BP 147/64; PULSE 59; RESP 18; TEMP 36.3; O2SAT 95
[2020-03-26 04:05] VITALS: BP 147/75; PULSE 59; RESP 18; TEMP 36.3; O2SAT 97
[2020-03-26] MEDS: OXYCODONE IR 5 MG TABLET PO (04:22)
[2020-03-26] MEDS: ALBUTEROL/IPRATROPIUM MDI 2 PUFF INH (06:56)
[2020-03-26 07:04] VITALS: PULSE 72; RESP 16; O2SAT 97
--- NOTE | 2020-03-26 07:31 | PM.PNPO.1 ---
Subjective Subjective Date Patient Seen: 03/26/20 Time Patient Seen: 07:32 Interval history: She is doing well. She had her previous antibiotic stopped and has been switched over to daptomycin. Exam Vital Signs (past 8 hours): - 03/26/20 00:30 03/26/20 04:05 03/26/20 07:04 Temperature 97.3 F L 97.3 F L Pulse Rate 59 L 59 L 72 Respiratory Rate 18 18 16 Blood Pressure 147/64 H 147/75 H Pulse Oximetry 95 97 97 Oxygen Delivery Method Room Air Oxygen Flow Rate 0 Const Orientation: alert and oriented x3 Back/Spine/Pelvis Other: CDI. Drain output 5/30/0. 5/5 motor both lower extremities Objective Labs Result Diagrams: 03/25/20 05:21 03/25/20 05:21 Labs: Laboratory Results - last 24 hr 03/25/20 05:21 Total Creatine Kinase 80 Assessment & Plan Post-op Postoperative Procedures: Procedures Operation Date: 03/22/20 14:30 Actual Procedures Side Surgeon p Incision and Drainage Wound/Spine Luca Doty MD Operation Date: 03/24/20 08:00 Actual Procedures Side Surgeon p Incision and Drainage Lumbar Spine Luca Doty MD She is doing well. Plan for discharge home with IV outpatient daptomycin. Treating presumptively for C acnes. Awaiting PCR and final culture results, that will probably happen over the next 1-2 weeks. Follow up in 1 week for wound check.
[2020-03-26 07:35] VITALS: BP 148/68; PULSE 61; RESP 16; TEMP 36; O2SAT 97
[2020-03-26] MEDS: ASPIRIN EC 81 MG TABLET PO (07:59)
[2020-03-26] MEDS: OXYCODONE IR 10 MG TABLET PO ×2 (07:59→12:09)
[2020-03-26] MEDS: GABAPENTIN 600 MG TABLET PO ×2 (07:59→14:09)
[2020-03-26] MEDS: NICOTINE 21 MG PATCH TOP (08:00)
[2020-03-26] MEDS: DOCUSATE 100 MG CAPSULE PO (08:00)
[2020-03-26] MEDS: INSULIN ASPART 100 UNIT/ML INSULN PEN SUBCUT ×2 (08:01→11:50)
[2020-03-26] MEDS: INSULIN ASPART 100 UNIT/ML INSULN PEN 20 UNIT SUBCUT ×2 (08:01→11:49)
[2020-03-26] MEDS: FLUCONAZOLE 100 MG TABLET PO (08:02)
[2020-03-26] MEDS: INSULIN GLARGINE 100 UNIT/ML 3ML PEN 30 UNIT SUBCUT (08:02)
[2020-03-26] MEDS: METFORMIN HCL 500 MG TABLET PO (08:04)
[2020-03-26 11:38] VITALS: BP 138/67; PULSE 63; RESP 16; TEMP 36; O2SAT 98
[2020-03-26] MEDS: DAPTOMYCIN IV (13:44)
[2020-03-26] MEDS: SODIUM CHLORIDE 0.9% IV (13:44)
[2020-03-26] MEDS: SODIUM CHLORIDE 0.9% FLUSH 10 ML IV ×2 (13:44→15:17)
--- NOTE | 2020-03-26 14:55 | CM.DPNOTE ---
DCP/continued: Reviewed chart. Spoke with Dr. Kaplan this AM and she has to ID/provider at [facility]. Current plan is for patient to go outpatient one time per day for IV abx. Patient instructed to go to [address] [place] [address] Entrance at [facility] beginning on 03-27-20 at 4:00pm phone# [phone]. Patient to be provided with this information on her discharge instructions. Met with patient and she is aware and agreeable to plan. Pharmacy at to provide first does this afternoon. P: Home today. IV abx arranged at [facility]. DRU Smith
--- NOTE | 2020-03-26 15:01 | DIET.PN ---
Addendum entered by Marleni Travis 03/26/20 15:10: Discontinued Tyrese due to high content of sugar as patient is meeting 100% PO's with adequate food sources of protein. Original Note: Dietary Progress Note Assessment: Follow up with patient to review dietary intake and blood sugar. She admits difficulty with meal planning and following a dietary routine. She reports often skipping breakfast or snacking on boost/slim fast and a banana. She usually only eats dinner as she is caring for the home during the day and often does not get a break until her returns from work. She is aware this is hinders her glucose control. Interventions: 1. Recommended replacing ONS with ensure max or glucerna for glucose control. Provided coupons. 2. Discussed challenges with meal planning. Created list of easy prepare foods (boiled eggs, cottage cheese, pre-cut fruits/veggies w/protein). 3. Recommended pt follow up with diabetes continuous improvement coach/PCP to discuss medication management as patient admits she has made drastic changes in medication dosage on her own. Monitoring/Evaluations: Provided this RD's contact for any further questions/concerns.
--- NOTE | 2020-03-26 15:42 | PC.NURSE ---
Discharge: Patient got her last dose of IV Dapto before leaving. Midline IV was flushed with saline and heparin. Given supplies and instructed to cover when showering. Note placed on her paperwork for the infusion clinic in [facility] with the date of Midline placement and heparin flushing requirements. Given all pertinent info for her infusion clinic appointment (starting tomorrow at 4 pm). Reviewed all d/c instructions with patient and thoroughly. Given script for Fluconazole, and for IV Dapto (although Oliva from faxed Dapto script already). Reiterated limits on BLT and patient verbalized understanding. Dressing changed, and drain removed, this morning per MD order- incision was well-approximated with sutures and with no active bleeding, drainage or erythema noted. Covered with Coversite dressing. Told she can shower, encouraged to cover dressing with plastic ahead of showers to keep. Given extra dressing supplies just in case. Verbalized understanding of all d/c instructions and stated no further questions. All personal belongings collected and sent with patient at d/c. Wheeled out to private vehicle accompanied by nursing staff.
--- NOTE | 2020-03-28 16:42 | PM.DS.1 ---
History of Present Illness History of Present Illness Date Patient Seen: 03/26/20 Chief complaint: Infection in back -post surgery Narrative: Ms. Hailey Yu is a 58-year-old female a past medical history significant for smoking, morbid obesity, hypertension, hyperlipidemia, brittle diabetes mellitus type 2, insulin dependent with poor control with multiple multiple recurrent lumbar abscesses due to previous lumbar surgeries who presents to the emergency department today with increasing back pain and fevers. The patient has had multiple lumbar spine surgeries with fusion at L4-5 and L5-S1. The patient has had subsequent recurrent abscesses requiring incision and drainage, the most recent being [phone]. At that time cultures finding 2+ gram variable rods. The patient reports developing back pain 1 week ago. She contacted Dr. Galicia office and was given an appointment for Thursday with instructions to go to the ER if she developed a fever which she did so today reporting a temperature of 101.8?. The patient had left cyndi lumbar pain and her checked the area today finding it inflamed and therefore presenting to the ER for evaluation. The patient reports fevers but denies chills. She has had no known COVID-19 exposures. She does complain of headache but denies visual changes nasal congestion or sore throat. Denies complaints of chest pain though states she has frequent palpitations with a history of intermittently irregular heartbeat. She denies complaints shortness of breath has no cough. She reports usual have shortness of breath when exposed to allergens. She endorses having nausea but no vomiting and denies diarrhea or constipation. She reports no urinary symptoms. Patient states she is able to ambulate and has no numbness or tingling in her extremities. Upon arrival to the ER the patient is afebrile with temperature 97.3?, heart rate of 83, blood pressure of 160/69, respirations of 22 saturating 96% on room air. A CT of the lumbar spine is obtained finding a 7.9 x 4.6 x 5 cm thick walled fluid collection in the left posterior paraspinous region of L4 in the subcutaneous compartment. On laboratory analysis the patient has white count 18.8, hemoglobin of 11.2 and hematocrit of 35.1 and platelets of 474. On chemistries she has a sodium of 133, potassium of 5.2, BUN of 22 and a creatinine 0.8 her glucose is 500 in 30. On liver function tests she has a bilirubin of 0.3, AST of 31, ALT 22 and alkaline phosphatase 197. Her lactic acid is 2.5 with a CRP of 4.8 and procalcitonin 0.18. In the ER the patient received initial dose of vancomycin in COVID-[address] Rowe is contacted is on-call for orthopedics and increase to consult. The patient is admitted to the medicine service for perispinal recurrent abscess. Discharge Providers Provider Date of admission: 03/22/20 01:13 Discharge Date: 03/26/20 Consults: 03/22/20 00:47 Consult to Dietitian, Adult Routine Comment: Reason For Exam: DM, irregular eating pattern, uncontrolled, hyperg 03/22/20 00:48 Consult to Discharge Planning Routine Comment: 03/22/20 00:53 Consult to Orthopedic Surgery Routine Comment: Consulting Provider: Colin Rowe Reason for consultation: yes Has provider been notified: Yes 03/24/20 11:15 Consult to Occupational Therapy Evaluate & Treat Comment: Physician Instructions: Evaluate and treat Consult to Physical Therapy Evaluate & Treat Comment: Physician Instructions: Evaluate and Treat Discharge provider: Hailey Kaplan MD Summary Hospital Course Discharge Diagnosis: 1. Recurrent lumbar abscesses 2. Status post I&D on 03/22 with washout and wound VAC placement 3. Status post repeat I&D and washout on 03/24 4. Morbid obesity, evaluated by dietary during her hospital stay 5. Hypertension 6. Hyperlipidemia 7. Type 2 diabetes with suboptimal control Hospital Course: Patient was admitted to the hospital for recurrent lumbar abscess. She had a CT scan which confirmed the same. On March 22 she was taken to the operating room for an incision and drainage and washout. Wound VAC was placed. Patient continued to have symptoms and was taken back to the operating room on 03/24 for repeat I&D with closure. Patient's cultures during the hospital stay did not grow any organisms. G stain during the stay was positive for gram-positive cocci as well as Gram-positive rods. Review of her old records from June of 2019 showed a culture which Cuti. Acnes this was sensitive to doxycycline. Patient was initially treated with vancomycin, ceftriaxone, Augmentin, and then doxycycline. Patient was then switched over to IV daptomycin. The cultures were sent to the [facility] for PCR testing for bacterial, fungal, and AFB. The patient had a midline catheter placed. She was deemed appropriate for discharge home. She will follow-up with [facility] infectious disease for ongoing care. They will follow-up on her PCR testing sent to the [facility]. Patient's blood sugars were markedly elevated during the hospital stay. She indicated she was unable to tolerate more than 25 units of insulin at 1 time as this caused significant muscle pain. Patient also indicated that she is followed by a diabetic care team in [place] who was currently working with her on slowly increasing her insulin. Patient's pain was relatively well controlled. She was deemed appropriate for discharge and arrangements were made for her to discharge home. Status at Discharge Cognitive/behavioral status at discharge: oriented Functional status at discharge: independent ambulation Overall status at discharge: patient is back to baseline Time Spent with Patient Time spent: Less than 30 minutes Time spent discussing smoking cessation with patient: 3 to 10 minutes Exam Vital Signs (past 8 hours): Oxygen Delivery Method Room Air Oxygen Flow Rate 0 Narrative Exam Narrative: Pleasant female in no obvious distress Lungs: Clear to auscultation Cardiac exam: Regular rate and rhythm normal S1-S2 Abdomen obese, soft, nontender Back: Lumbar drain in place to be really moved subsequently Extremities: No edema Objective Labs Result Diagrams: 03/25/20 05:21 03/25/20 05:21 Discharge Plan Discharge Plan Patient Disposition: Home Discharge comment: Patient to follow up with ALLEN Willams at [facility]. She will also get outpatient IV antibiotics with [facility] as well Discharge orders & Medications Prescriptions: New fluconazole [Diflucan] 100 mg Tablet 100 mg PO DAILY 3 Days RF: 0 daptomycin [Cubicin] 500 mg Recon Soln 760 mg IV Q24H 21 Days RF: 0 Continued Lantus U-100 Insulin 100 UNIT/1 ML solution 100 u SQ BID Qty: 0 RF: 0 lisinopril 20 MG tablet 20 mg PO QDAY Qty: 0 RF: 0 metformin [Glucophage] 500 MG tablet 1 tab PO BID Qty: 0 RF: 0 atorvastatin 20 mg Tablet 20 mg PO DAILY PRN (Reason: Allergic Symptoms) RF: 0 aspirin 81 mg Tablet,Delayed Release (Dr/Ec) 81 mg PO BEDTIME RF: 0 Humalog U-100 Insulin 100 unit/mL Cartridge 40 - 80 unit SUBCUT TID RF: 0 cetirizine 10 mg Capsule 10 mg PO DAILY RF: 0 sertraline [Zoloft] 100 MG tablet 150 mg PO QDAY RF: 0 Excedrin Extra Strength 0.5 tab PO QID PRN (Reason: Pain (Scale Score 1-3)) RF: 0 albuterol sulfate 1 neb Inhalation Q4H PRN (Reason: Dyspnea) RF: 0 ipratropium bromide 1 neb Inhalation Q4H PRN (Reason: Dyspnea) RF: 0 triamterene-hydrochlorothiazid 37.5 MG/25 MG tablet 0.5 tab PO QDAY RF: 0 oxycodone 5 mg Tablet 5 mg PO Q4-6H PRN (Reason: Pain, Moderate (4-6)) Qty: 40 RF: 0 gabapentin [Neurontin] 600 mg Tablet 600 mg PO TID Qty: 60 RF: 0 docusate sodium [DOK] 100 mg Capsule 100 mg PO BID Qty: 60 RF: 0 hydroxyzine pamoate 25 mg Capsule 25 mg PO TID PRN (Reason: Pain (Scale Score 4-6)) Qty: 50 RF: 1 ondansetron HCl [Zofran] 4 mg tablet 4 mg PO Q6H Qty: 20 RF: 0 Discontinued amoxicillin-pot clavulanate [Augmentin] 875-125 mg Tablet 1 tab PO BID Qty: 28 RF: 0 Diet/Activity/Treatments Diet: Carb-consistent/Diabetic Activity: as tolerated Visit Report/Discharge Packet Instructions: How to Prevent Falls, DI for Prescription Opioid Use, DI for Incision and Drainage Stand Alone Forms: Surgery Discharge Visit Report Forms: Patient Portal/API, Stroke Signs & Symptoms Discharges patient from system. Discharge Date/Time: 03/26/20 15:51
== END 2020-03-26 15:51 | disposition home or self-care (01) | DRG 857 ==
LOC: ED 22:28 → AC 03-22 01:25
PROVIDERS: Internal Medicine; Orthopaedic Surgery; Admitting Provider Nurse Practitioner Adult Health; Emergency Provider Emergency Medicine; Referring Provider Emergency Medicine; Visit Provider Nurse Practitioner Adult Health
PROC: 0KBG0ZZ Excision of Left Trunk Muscle, Open Approach (ICD-10-PCS; CPT 10180; principal; 2020-03-22 14:30)
DX: T81.41XA Infection following a procedure, superficial incisional surgical site, initial encounter (principal); L02.212 Cutaneous abscess of back [any part, except buttock and flank]; E66.01 Morbid (severe) obesity due to excess calories; Z68.37 Body mass index [BMI] 37.0-37.9, adult; E11.65 Type 2 diabetes mellitus with hyperglycemia; I10 Essential (primary) hypertension; E78.5 Hyperlipidemia, unspecified; F32.9 Major depressive disorder, single episode, unspecified; J45.909 Unspecified asthma, uncomplicated; F17.210 Nicotine dependence, cigarettes, uncomplicated; Z79.4 Long term (current) use of insulin; Z11.59 Encounter for screening for other viral diseases; Z86.73 Personal history of transient ischemic attack (TIA), and cerebral infarction without residual deficits
CPT/HCPCS: 36415; 36569; 36592; 72132; 80048; 80053; 80061; 80202; 81001; 82550; 82962; 83036; 83605; 83735; 84145; 85025; 86140; 87040; 87070; 87075; 87086; 87205; 87635; 87801; 94640; 96365; 96366; 97116; 97161; 97165; 97530; 97535; 99284; 99406; J0330; J0696; J0878; J1170; J1642; J2250; J2405; J2704; J2765; J3010; J7613; Q9967

== ENCOUNTER → 2020-04-15 14:12 | Outpatient (CLI) | payer MEDICARE, SELFPAY ==
[2020-03-22 02:00] VITALS: BMI 37.3
[2020-04-15 17:34] LABS: COVID19 -Nasal RAPID Negative (Negative)
== END ==
PROVIDERS: Visit Provider Physician Assistant
DX: Z01.818 Encounter for other preprocedural examination (principal)
CPT/HCPCS: 87635

== ENCOUNTER 2020-04-16 14:26 | Day surgery (SDC) | payer MEDICARE, SELFPAY ==
[2020-03-22 02:00] VITALS: BMI 37.3
[2020-04-13 11:51] VITALS: BMI 39.1
[2020-04-16] VITALS (16 sets, daily range): BP systolic 140–187; BP diastolic 40–72; PULSE 70–85; RESP 9–29; TEMP 36–36.7; O2SAT 92–99; BMI 39.1
[2020-04-16] MEDS: DEXTROSE 50 % IN WATER 25 GM/50 ML SYRINGE IV (15:56)
[2020-04-16] MEDS: ACETAMINOPHEN 325 MG TABLET 975 MG PO (15:57)
[2020-04-16] MEDS: GABAPENTIN 300 MG CAPSULE PO (15:57)
[2020-04-16] MEDS: LACTATED RINGERS 1,000 ML 42 ML IV ×2 (15:57→18:20)
[2020-04-16] MEDS: ONDANSETRON 4 MG/2 ML INJ IV ×2 (16:00→22:09)
--- NOTE | 2020-04-16 16:39 | PM.PREOP ---
Pre-operative Note COVID-19 COVID-19 status: Negative Result date/Date tested (Pos, Neg/Pending): 04/14/20 Interval Note History & Physical reviewed/Exam performed by Physician: Yes Changes to H&P: No
--- NOTE | 2020-04-16 17:53 | P.OP_ITS ---
Operative Date/Time/Diagnoses Date of procedure: 04/16/20 Time of procedure: 17:16 Pre-op diagnosis: Lumbar abscess Post-op diagnosis: same Procedure & Clinicians Procedure: Lumbar irrigation and debridement of skin and subcutaneous layer Same procedure as scheduled: Yes Indications: Ms. Yu is a 59 yo F with poorly controlled DM and recurrent hematogenous sourced lumbar abscess formation. She is s/p multiple recent I&D. Recent CT L-spine shows re-accumulation of fluid suspected to be purulent. After discussing with ID physician managing her infection, mutual decision was made to return to the OR for repeat I&D of her wound with tissue PCR culture to be sent to . Surgeon: Jodi Lombardo Click Yes if Unassisted: No Anesthesia Type: General Operative Notes Closure Type: primary Specimen(s): other (Lumbar subcutanous layer) Estimated Blood Loss (mL): 10 Blood products transfused: none Procedure in detail: Patient was seen in the preoperative area. Risks and benefits of the surgery was discussed with the patient. Informed consent was obtained from the patient and placed in the chart. Surgical site was marked. Patient was taken to the operative room. General anesthesia was administered. Prophylactic antibiotic was given to the patient less than 30 min before the incision was made. Patient was placed into a prone position on the Juan J table. Patient's back was then prepped and draped in the sterile fashion. Time- out was performed at this time. Patient' left-sided incision was inspected. The previously draining wound has now scabbed over. There is no drainage. There is no cellulitis. There is no induration or fluctuance on palpation. A 2 in incision was made over area with a small blister and scab in the center of the incision. The wound was inspected again. The previous abscess and current wound was found to be isolated to the subcutaneous layer. The deep fascial layer is intact with no exposed hardware. At this time using a 10 blade as well as a Su, unhealthy appearing tissue was excised including skin subcutaneous tissue. The subcutaneous tissue was sent off for tissue culture After excision all debridement was completed the wound was irrigated copiously with 1 L of sterile normal saline. After the irrigation and debridement was completed the wound was then re-examined. Healthy-appearing tissue was visible on all surfaces of the wound. #2 Nylon suture was used to close the wound in vertical mattress fashion in interrupted fashion. #2 PDS was used to close the subcutaneous layer. The wound was closed without any difficulty and without added stress the skin. At this time a sterile dressing was applied the patient's wound/incision. Patient was then woken up from anesthesia and transferred recovery room stable condition. There were no complications. Patient receives daily IV infusion of antibiotics. Currently patient's PICC line is working. Patient will be admitted to the inpatient hospital and have PICC line nurse evaluation in the morning. If patient's PICC line is not able to be restarted a new PICC line is to be placed. Complications: none Post-operative Condition: stable Disposition: observation Plan for aftercare: Admit for observation
[2020-04-16] MEDS: fentaNYL 100 MCG/2 ML INJ IV ×4 (18:15→18:30)
--- NOTE | 2020-04-16 19:15 | SUR.PHASEI ---
Report called to LARON Antonio on acute care floor. Pt in stable condition, vss. Drsg observed to be c/d/i. Pt tolerating oral intake with any difficultly. Pt denies any nausea. Pt transferred to acute floor by LARON Gu and DOYLE. Bedside report given to LARON Gu at this time. Transferred care of pt to LARON Gu at that time.
[2020-04-16] MEDS: SODIUM CHLORIDE 0.9% 1,000 ML 100 ML IV (19:53)
[2020-04-16] MEDS: CEFTRIAXONE 2 GM/50 ML FROZ.PIGGY IV (20:01)
[2020-04-16] MEDS: OXYCODONE IR 5 MG TABLET PO ×2 (20:01→23:37)
[2020-04-16] MEDS: DOCUSATE 100 MG CAPSULE PO (21:46)
[2020-04-16] MEDS: GABAPENTIN 600 MG TABLET PO (21:46)
[2020-04-16] MEDS: SENNOSIDES 8.6 MG TABLET 17.2 MG PO (21:46)
[2020-04-16] MEDS: ASPIRIN EC 81 MG TABLET PO (21:46)
[2020-04-16] MEDS: INSULIN ASPART 100 UNIT/ML INSULN PEN SUBCUT (21:46)
--- NOTE | 2020-04-16 23:54 | PC.NURSE ---
Evening Shift Note- Patient arrived to room via bed from PACU at 1930. Patient alert and oriented and able to make needs known to staff. Patient pleasent, calm, and cooperative with care. Admission completed. Safety measures in place. Patient agrees to call for assistance. Dressing to back C/D/I. Will continue to monitor.
[2020-04-17] MEDS: OXYCODONE IR 5 MG TABLET PO ×2 (02:45→10:39)
[2020-04-17 03:08] VITALS: BP 137/60; PULSE 66; RESP 16; TEMP 36.4; O2SAT 99
[2020-04-17] MEDS: ONDANSETRON 4 MG/2 ML INJ IV (05:00)
[2020-04-17] MEDS: HYDROMORPHONE 0.5 MG INJ 0.2 MG IV (05:00)
[2020-04-17 07:40] VITALS: BP 143/54; PULSE 67; RESP 16; TEMP 36.3; O2SAT 97
--- NOTE | 2020-04-17 08:04 | PM.PN.1 ---
Exam Vital Signs (past 8 hours): - 04/17/20 03:08 Temperature 97.5 F L Pulse Rate 66 Respiratory Rate 16 Blood Pressure 137/60 Pulse Oximetry 99 Oxygen Delivery Method Room Air Oxygen Flow Rate 0 Assessment & Plan Assessment & Plan narrative: Patient is admitted after surgery. Patient is neurovascularly intact on exam. Patient has no signs or symptoms of DVT. Patient's dressing is clean dry and intact. Patient admitted for observation due to PICC line stopped working and no PICC nurse available during evening. WIll have PICC line replaced today and discharge to home.
--- NOTE | 2020-04-17 08:31 | OT.IPNOTE ---
Pt here for another I and D to the back and states will be going home today. Pt already has all OT equipment needs and able to assist as needed. Pt already has good awareness for all back precaution needs, therefore D/C Ot eval orders.
[2020-04-17] MEDS: INSULIN ASPART 100 UNIT/ML INSULN PEN 25 UNIT SUBCUT (08:52)
[2020-04-17] MEDS: INSULIN ASPART 100 UNIT/ML INSULN PEN SUBCUT (08:53)
[2020-04-17 08:55] VITALS: PULSE 75; RESP 16; O2SAT 97
[2020-04-17] MEDS: INSULIN GLARGINE 100 UNIT/ML 3ML PEN 30 UNIT SUBCUT (09:03)
--- NOTE | 2020-04-17 09:21 | DI.RAD.S_ITS ---
PROCEDURE: XR CHEST FOR PICC 1V INDICATIONS: confirm picc placement COMPARISON: [facility], , XR CHEST FOR PICC 1V, 07/25/2019, 17:02. FINDINGS: PICC was placed by the intravenous therapy team from the left side. Fluoroscopic spot film demonstrates the tip of PICC projecting to the area of SVC. IMPRESSION: Tip of PICC projects to the area of SVC. Dictated by: Constantino Ku M.D. on 04/17/2020 at 9:53 Approved by: Constantino Ku M.D. on 04/17/2020 at 9:54
--- NOTE | 2020-04-17 09:32 | CM.DANOTE ---
Addendum entered by Marla Alvarenga LPN 04/17/20 11:14: Went again now to room to check in with pt. She had already left for home. Will be continuing her ongoing IV antibiotics at [facility]. PT and OT were ordered but both saw her briefly, noted her independence and no need for formal evals. Addendum entered by Marla Alvarenga LPN 04/17/20 09:50: Case received, EMR reviewed and attempted to check in with pt prior to Team Rounds. Pt was in process of PICC placement. DC to home order is noted. Pt is a 59 year old female who admitted yesterday for a scheduled I&D s/p surgery of Lumbar spine. Tissue cultures sent to the . Original Note: Discharge Planning/Care Management DCP assessment: CM Discharge Assessment Start: 04/17/20 09:28 Freq: Status: Active Protocol: Document 04/17/20 09:29 ITV (Rec: 04/17/20 09:32 ITV [id number]) Discharge Planning Assessment Advance Directives? No History Provided By Patient,Medical Record Has Patient been admitted in last 30 Yes days? Comment Pt was here end of February with d/ c on March 26 to home setting and daily IV antibiotics at [facility] infusion center Prior Living Arrangements Mobile home Household Members spouse,family Comment per therapy team, pt has all needed DME at home from prior admissions Review Status In Process Pre-Anesthesia Assessment Start: 04/13/20 11:51 Freq: Status: Active Protocol: Document 04/13/20 11:51 CAB (Rec: 04/13/20 12:03 CAB [id number]) Pre-Anesthesia Assessment PAC Comment A1c 12.2% on labs 03/21/20 Patient Information Reviewed Via Chart Review Comment COVID has not been scheduled at time of chart review Seen Specialist in Last 12 Months Yes Specialist Seen Orthopedist Primary Language Armenian Preferred Language Armenian Height 162.56 cm Weight 103.419 kg Body Mass Index (BMI) 39.1 Hearing Ability Hard of Hearing Barriers to Learning None Hx Anesthesia Reactions No: Untreated SHAGUFTA Hx Family Anesthesia Reaction No Hx Malignant Hyperthermia No Hx Blood Transfusion Reaction No Anesthesia Review Requested No Fertilizer Applicator No alcohol intake never Smoking Status Current every day smoker Tobacco type cigarettes how long ago did patient quit smoking Quit 2015 Substance Use Type painkillers,prescription drug Pain Present Pain Reported Musculoskeletal Symptoms Back Pain,Difficulty Walking, Joint Pain Patient is completely paralyzed or No completely immobile Mental Status Oriented to own ability Does patient have REYNOLDS/SOB Yes Hx Sleep Apnea Yes CPAP/BIPAP use prescribed not used Currently Taking a Beta Milka No Hx SOB Yes Anti-Coagulant Therapy No Has a Historical Interpreter No Cardiac Testing No Hx Pacemaker/ICD No Pacemaker Rep Required? No Cardiac Clearance Received Not Applicable Urinary Catheter Present No Hx Urinary Self Catheterization No Diabetes Yes: Poorly controlled HgbA1C 12.2 Date 03/25/20 Patient No Lactating No Presence of External or Internal Medical Yes: screws rods and cages in Devices back, wound vac Have you had any close contact with Unknown someone diagnosed with COVID-19? Marital Status Lives With spouse,family Patient Discharge Plan Description Return Home Do You Have Any Spiritual Beliefs That No May Affect Your HC Choices? Do You Have Any Cultural Practices That No May Affect Your HC Choices? Emergency Contact Name Jono Yu Emergency Contact Advance Directives? No Power of Receiving Lead No
--- NOTE | 2020-04-17 10:16 | PT-IP ANOTE ---
Pt returns for repeat I&D of lumbar spine yesterday. Pt having PICC line placed at initial contact today. Upon PT return, pt was observed ambulating independently in the room with SPC and getting dressed for discharge. Pt has good recall of back precautions and good safety awareness. Her is home and able to assist as needed. D/C PT orders as pt has no acute PT needs.
--- NOTE | 2020-04-17 12:03 | PC.NURSE ---
Gauze drsg to mid-lower back c/d/i; pt reports moderate to severe pain; PO oxycodone administered prior to d/c; LS clear; pt instructions given to pt; patient escorted via wheelchair with present to private auto; from auto; this RN returned patient to ED in order to remove peripheral IV; pt tolerated IV removal and returned to car via wheelchair
[2020-05-01 09:18] LABS: Bacteria Det by PCR Univ WA SEE SEPERATE REPORT; Fungal DNA detection, PCR SEE SEPERATE REPORT
[2020-05-01 09:19] LABS: Miscellaneous to Univ of WA SEE SEPERATE REPORT
== END 2020-04-17 11:30 | disposition home or self-care (01) ==
LOC: AC 04-17 08:09 → OR 04-17 15:37
PROVIDERS: Referring Provider Orthopaedic Surgery Orthopaedic Surgery of the Spine; Visit Provider Orthopaedic Surgery Orthopaedic Surgery of the Spine
PROC: (CPT 10180; principal; 2020-04-16 16:15)
DX: T81.42XA Infection following a procedure, deep incisional surgical site, initial encounter (principal); Z98.1 Arthrodesis status; M47.26 Other spondylosis with radiculopathy, lumbar region; M43.17 Spondylolisthesis, lumbosacral region; E11.9 Type 2 diabetes mellitus without complications; Z79.4 Long term (current) use of insulin; F41.9 Anxiety disorder, unspecified; Z01.818 Encounter for other preprocedural examination; Z11.59 Encounter for screening for other viral diseases
CPT/HCPCS: 10180; 36569; 82962; 87551; 87635; 87801; 94760; J0330; J0696; J1170; J2405; J2704; J3010